=== PATIENT | female | born 1945 | race Caucasian/White ===

== ENCOUNTER 2020-09-05 11:41 | Outpatient (REF) | payer MEDICARE, SELFPAY ==
[2020-09-05 13:59] LABS: MANUAL DIFF FLAG NO
[2020-09-05 14:02] LABS: Basophils Absolute Auto 0.1 X10*3/uL (0.0-0.2); Basophils Percent Auto 1.1 % (0-2); Eosinophils Absolute Auto 0.1 X10*3/uL (0.0-0.4); Eosinophils Percent Auto 1.5 % (0-4); Hematocrit 39.4 % (37-47); Hemoglobin 12.7 g/dl (12.0-16.0); Imm Gran Abs Auto 0.01 X10*3/uL (0.00-0.03); Imm Gran Pct Auto 0.2 % (0.0-0.4); Lymphocytes Absolute Auto 1.8 X10*3/uL (1.2-4.9); Lymphocytes Percent Auto 32.7 % (20-40); Mean Corpuscular HGB Conc 32.2 g/dl (31.0-35.0); Mean Corpuscular Hemoglobin 30.2 pg (27.0-33.0); Mean Corpuscular Volume 93.8 fL (80-98); Mean Platelet Volume 11.3 fL (9.4-12.3); Monocytes Absolute Auto 0.4 X10*3/uL (0.1-1.2); Monocytes Percent Auto 7.5 % (2-11); Neutrophils Absolute Auto 3.1 X10*3/uL (2.0-8.3); Platelet Count 323 X10*3/uL (160-400); Red Cell Distribution Width 12.9 % (11.0-16.0); White Blood Count 5.5 X10*3/uL (4.8-10.8)
[2020-09-05 14:35] LABS: Alanine Aminotransferase 21 U/L (0-31); Albumin Level 4.2 g/dL (3.5-5.0); Alkaline Phosphatase 58 U/L (39-117); Anion Gap 14 (12-20); Aspartate Amino Transferase 19 U/L (5-31); Bilirubin Total 0.5 mg/dL (0.0-1.0); Blood Urea Nitrogen 17 mg/dL (9-16); Calcium 9.3 mg/dL (8.4-10.2); Carbon Dioxide 26 mmol/L (22-29); Chloride 106 mmol/L (96-108); Estimated Glomerular Filt Rate > 60; Glucose Random 94 mg/dL (60-115); Potassium 4.7 mmol/L (3.3-5.1); Sodium 141 mmol/L (135-145); Total Protein 6.7 g/dL (6.5-8.0)
== END 2020-09-05 11:42 | disposition home or self-care (01) ==
LOC: HO.HMGCLDS 11:41
PROVIDERS: PCP Internal Medicine; Visit Provider Internal Medicine
DX: M54.9 Dorsalgia, unspecified (principal); M17.0 Bilateral primary osteoarthritis of knee; K21.9 Gastro-esophageal reflux disease without esophagitis
CPT/HCPCS: 36415; 80053; 85025

== ENCOUNTER 2020-10-18 15:00 | Outpatient (RCR) | payer MEDICARE, SELFPAY ==
--- NOTE | 2020-09-11 16:14 | MHC.PT.EP ---
[facility] [place] Office [place] Office [place] Office [address] Jeferson Goodson [address] [phone] F: [phone] F: [phone] F: [phone] F: [phone] Physical Therapy Plan of Care Date of Evaluation: Date of Surgery: Diagnosis: back pain, B knee OA. Assessment: Pt is a 7/4 y/o female referred to PT for eval and treat of LBP and B knee OA presents with signs and sx consistent with B knee and lumbar dysfunction resulting in decreased tolerance and ability to perform ambulatory, and standing tasks for duration, performing fitness activities as well as negotiating stairs, performing squatting activities and heavy HH chores secondary to decreased hip, core and knee strength, gait abnormality, decreased posture, and pain. Pt is deemed an appropriate candidate to receive skilled PT in order to address her physical limitations to improve her functional ability. Frequency and Duration: The patient will be seen 2 x/ wk x 6 wks. Short Term Goals: initiate HEP. improve baseline pain with activity to < 4/10; initial: 6/10. Senior Living Goals: Pt will be able to walk 1 mile with at most a little bit of difficulty; int ital: quite a bit of difficulty. I with HEP. Pt will be able to negotiate 1 flight of stairs with managed Sx. Treatment Plan: Modalities to reduce pain, spasms and effusion. Manual therapy to restore motion and function. Therapeutic exercise to improve strength and flexibility. Neuromuscular re-education for posture and balance. Therapeutic activities to return to functional activities of daily living. Electronically signed by: Hardeep Sabillon PT. Please sign and return to therapist. Thank you for your referral.
--- NOTE | 2020-12-04 10:01 | MHC.PT.DC ---
[facility] [place] Office [place] Office [place] Office [address] Priscilla Goodson [address] [phone] F: [phone] F: [phone] F: [phone] F: [phone] Physical Therapy Discharge Report Diagnosis: back pain, B knee OA. Date of Surgery: Date of Evaluation: 09/11/20 Date of Discharge: 12/04/20 Treatments to Date: 10 Cancellations to Date: No Shows to Date: Discharge Status: Improved Function Independent with HEP Discharge Summary: Leni has been an active participant in her therapy in and out of the clinic and has met many of her therapeutic goals; though some knee pain persists she is improved of her function and greatly relieved of her back pain. She is I with her home program and is ready for ERENDIRA TESFAYE in agreement. Electronically signed by: Hardeep Sabillon PT. Please sign and return to therapist. Thank you for your referral.
== END 2020-12-04 10:02 | disposition home or self-care (01) ==
LOC: HO.PTCHIC 15:00
PROVIDERS: PCP Internal Medicine; Visit Provider Internal Medicine
DX: M54.5 Low back pain (principal); M17.9 Osteoarthritis of knee, unspecified
CPT/HCPCS: 97110; 97140; 97161; 97530

== ENCOUNTER 2020-12-12 11:07 | Outpatient (REF) | payer MEDICARE, SELFPAY ==
--- NOTE | ~2020-12-12 | MM_ITS ---
EXAMINATION: MM SCREENING DIGITAL BREAST TOMOSYNTHESIS, BILATERAL CLINICAL INFORMATION: Screening. Asymptomatic. The lifetime risk of breast cancer based on the Tyrer-Cuzick Model is 2%. COMPARISON: Mammography: 12/07/2019, 12/01/2018, 11/22/2017, 11/09/2016 TECHNIQUE: Digital breast tomosynthesis is performed in both the craniocaudal and mediolateral oblique views along with computer-aided detection (CAD). Synthesized 2D images are generated from the tomosynthesis. FINDINGS: There are scattered areas of fibroglandular density (ACR BI-RADS breast composition Category b). There are no significant masses, abnormal calcifications, or other abnormalities. Background fibroglandular and stromal densities are stable. The axilla and skin contours are unremarkable. MM/MM tomosynthesis screening BI IMPRESSION: No mammographic evidence of malignancy. ASSESSMENT: BI-RADS 1: Negative RECOMMENDATION: Routine annual mammography screening. This patient's information was entered into a reminder system with a target due date for their next mammogram.
== END 2020-12-12 11:08 | disposition home or self-care (01) ==
LOC: HO.MAMMO 11:07
PROVIDERS: PCP Internal Medicine; Visit Provider Internal Medicine
DX: Z12.31 Encounter for screening mammogram for malignant neoplasm of breast (principal)
CPT/HCPCS: 77063; 77067

== ENCOUNTER → 2021-01-09 13:21 | Outpatient (BNVA) | payer MEDICARE, SELFPAY | PROVIDERS: PCP Internal Medicine; Visit Provider Orthopaedic Surgery | DX: M17.12 Unilateral primary osteoarthritis, left knee (principal) | CPT/HCPCS: 99212 ==

== ENCOUNTER → 2021-01-20 11:55 | Outpatient (BNVA) | payer MEDICARE, SELFPAY | PROVIDERS: PCP Internal Medicine; Visit Provider Orthopaedic Surgery | DX: Z01.812 Encounter for preprocedural laboratory examination (principal); Z01.810 Encounter for preprocedural cardiovascular examination ==

== ENCOUNTER 2021-02-13 08:44 | Outpatient (REF) | payer MEDICARE, SELFPAY ==
--- NOTE | ~2021-02-13 | XR_ITS ---
EXAMINATION: XR KNEE, BILATERAL CLINICAL INFORMATION: Pain COMPARISON: Previous x-rays November 2019. TECHNIQUE: Standing AP view of both knees and lateral and sunrise view of the left knee. FINDINGS: Left: There is mild varus angulation at the knee joint. Bone alignment is otherwise normal. There is tricompartment arthritis with joint space narrowing and osteophyte formation, greatest at the medial femoral tibial and patellofemoral joints. There is a small joint effusion. Right: Standing AP view of the right knee demonstrates arthritis at the medial femoral tibial joint. XR/XR knee standing BI IMPRESSION: LEFT KNEE: Tricompartment arthritis, small joint effusion and mild varus angulation. RIGHT KNEE: Arthritis at the medial femoral tibial joint.
--- NOTE | ~2021-02-13 | XR_ITS ---
EXAMINATION: XR KNEE, BILATERAL CLINICAL INFORMATION: Pain COMPARISON: Previous x-rays November 2019. TECHNIQUE: Standing AP view of both knees and lateral and sunrise view of the left knee. FINDINGS: Left: There is mild varus angulation at the knee joint. Bone alignment is otherwise normal. There is tricompartment arthritis with joint space narrowing and osteophyte formation, greatest at the medial femoral tibial and patellofemoral joints. There is a small joint effusion. Right: Standing AP view of the right knee demonstrates arthritis at the medial femoral tibial joint. XR/XR knee LT 2V IMPRESSION: LEFT KNEE: Tricompartment arthritis, small joint effusion and mild varus angulation. RIGHT KNEE: Arthritis at the medial femoral tibial joint.
== END 2021-02-13 08:45 | disposition home or self-care (01) ==
LOC: HO.HOSX 08:44
PROVIDERS: Visit Provider Physician Assistant
DX: M17.12 Unilateral primary osteoarthritis, left knee (principal); M25.561 Pain in right knee
CPT/HCPCS: 73560; 73565; 99212

== ENCOUNTER 2021-02-18 06:11 | Inpatient (IN) | payer MEDICARE, SELFPAY ==
--- NOTE | 2021-01-21 07:55 | ECG_ITS ---
Test Reason : 201.810 Blood Pressure : / mmHG Vent. Rate : 067 BPM Atrial Rate : 067 BPM P-R Int : 142 ms QRS Dur : 076 ms QT Int : 392 ms P-R-T Axes : 035 -10 035 degrees QTc Int : 414 ms Normal sinus rhythm Normal ECG No previous ECGs available Referred By: Prosper Gilbert Electronically Signed By:ARMANDO RODNEY MD
[2021-01-21 08:17] LABS: MANUAL DIFF FLAG NO
[2021-01-21 08:29] LABS: Basophils Absolute Auto 0.1 X10*3/uL (0.0-0.2); Eosinophils Absolute Auto 0.1 X10*3/uL (0.0-0.4); Eosinophils Percent Auto 2.1 % (0-4); Hematocrit 38.8 % (37-47); Hemoglobin 12.7 g/dl (12.0-16.0); Imm Gran Abs Auto 0.01 X10*3/uL (0.00-0.03); Imm Gran Pct Auto 0.2 % (0.0-0.4); Lymphocytes Absolute Auto 1.4 X10*3/uL (1.2-4.9); Lymphocytes Percent Auto 26.6 % (20-40); Mean Corpuscular HGB Conc 32.7 g/dl (31.0-35.0); Mean Corpuscular Hemoglobin 30.5 pg (27.0-33.0); Mean Platelet Volume 10.1 fL (9.4-12.3); Monocytes Absolute Auto 0.5 X10*3/uL (0.1-1.2); Monocytes Percent Auto 10.3 % (2-11); Neutrophils Absolute Auto 3.1 X10*3/uL (2.0-8.3); Neutrophils Percent Auto 59.8 % (45-73); Platelet Count 318 X10*3/uL (160-400); Red Blood Count 4.17 X10*6/uL (4.20-5.50); White Blood Count 5.2 X10*3/uL (4.8-10.8)
[2021-01-21 09:01] LABS: Anion Gap 14 (12-20); Blood Urea Nitrogen 14 mg/dL (9-16); Calcium 9.8 mg/dL (8.4-10.2); Carbon Dioxide 26 mmol/L (22-29); Chloride 105 mmol/L (96-108); Estimated Glomerular Filt Rate > 60; Glucose Random 108 mg/dL (60-115); Potassium 4.5 mmol/L (3.3-5.1); Sodium 140 mmol/L (135-145)
--- NOTE | 2021-02-06 16:46 | HP_ITS ---
DATE OF SERVICE: 02/18/2021 HISTORY OF PRESENT ILLNESS: The patient is a 76-year-old female, who is seen today in the office for preop evaluation prior to left total knee replacement scheduled with Dr. Gilbert on February 18. The patient feels well except for the knee pain. PAST MEDICAL HISTORY: Significant for arthritis, appendectomy, tonsillectomy, varicose veins, gastroesophageal reflux disease, hay fever, diverticulosis, bunions. ALLERGIES: SHE IS LISTED ALLERGIC TO BIAXIN AND CIPROFLOXACIN. FAMILY HISTORY: Mother at 69 from pancreatic cancer. Father at 76 from pancreatic cancer. One brother has Parkinson's. SOCIAL HISTORY: She is and retired, has 2 children in good health. PRESENT MEDICATIONS: Prilosec 20 mg a day, calcium and vitamin D, p.r.n. ibuprofen which is being held for the surgery, multivitamin. She has been on allergy shots previously for hay fever. REVIEW OF SYSTEMS: Weight is up 8 pounds. No fevers, chills, or sweats. No headaches or dizziness. No chest pains or palpitations. No peripheral edema. No shortness of breath or wheezing. Some heartburn. No abdominal pain, diarrhea, or constipation. Some urinary urgency, occasional incontinence, nocturia. No confusion. No speech changes. Sleep and appetite are the same. She does have seasonal allergies. No skin rashes or breast changes. PHYSICAL EXAMINATION: GENERAL: She is awake and alert, in no distress. VITAL SIGNS: Temperature 98.3, pulse 78, respirations 12, blood pressure 124/78, 98% oxygen saturation on room air. Weight is 178, height is 5 feet 2 inches. HEENT: Pupils equal. TMs clear. Pharynx clear. NECK: Supple. No lymph nodes, bruits, or masses. HEART: Sounds S1 and S2. Regular rate and rhythm. LUNGS: Clear. ABDOMEN: Soft and nontender. Positive bowel sounds. No HSM. EXTREMITIES: No clubbing, cyanosis, or edema. 1 to 2+ pulses. NEUROLOGICAL: Nonfocal. Cranial nerves II through XII are intact. Hand grasps are equal. She does not smoke. LABORATORY DATA: Labs and EKG have been done previously in the hospital and are available on [facility], they are within normal limits. ASSESSMENT AND PLAN: She is medically stable for the proposed procedure. I will be available if there are any medical questions. She has had COVID and flu vaccine and is up to date. She has had a pneumonia vaccine 4 years ago, so it is up to date on that. Jamie Mendoza MD FC/LEO / [phone]
[2021-02-11 12:06] VITALS: BP 190/80; PULSE 74; RESP 20; O2SAT 97; BMI 32.0
--- NOTE | 2021-02-11 12:18 | HO.ANESPROP2 ---
Documented by User: Michelle Hawley NP 02/17/21 09:33 HPI - Anesthesia Eval Consult details Narrative: 76yo F for Left Knee Replacement Total PCP cleared BP up at PAT, recheck lower. Pt describes nerves/pain. BP WNL at PCP clearance. PMFSH Active Problems Active Problems: All Active Problems (Updated 02/11/21 @ 12:03 by Janet Alvarez RN) Arthritis of left knee (Acute) Past Medical History Medical History GERD (gastroesophageal reflux disease) Hayfever Lumbar disc disease Osteoarthritis Stress incontinence Family History Family history of problems with anesthesia: No Surgical History Surgical History History of cataract extraction Hx of appendectomy Hx of tonsillectomy History of Problems with Anesthesia: No Social History Social History (Updated 02/13/21 @ 11:38 by Leo Martinez) Are you a primary assisted living care manager to a significant other at home: No Do you presently have visiting nurse or other home services: No Patient Tobacco Use Status: Former Tobacco user Quit Date: Tobacco use type: Cigarette Second Hand Smoke Exposure: No Use of substances other than those prescribed or required for medical reasons: No Have you been hit, kicked, punched, or otherwise hurt by someone within the past year? If so, by whom?: No Are you DNR?: No Advance Directives: No Advance Directives Information Provided: Yes (given to patient) Advance Directives on File: No Recently lost weight without trying: No Eating poorly because of decreased appetite: No Nutrition Risks: No Nutritional Risk Patient : No Current occupational status: retired Current occupation: rt handed Narrative Narrative: No recent illness No CP/SOB with ADL (housework, groceries) Meds Allergies Allergy/AdvReac Type Severity Reaction Status Date / Time ciprofloxacin [Cipro] Allergy Intermediate Itching Verified 02/18/21 06:15 Biaxin Allergy Severe Dizziness Uncoded 02/18/21 06:15 Home Medications Medication Instructions Recorded Confirmed Last Taken Type ibuprofen 200 mg capsule 200 mg PO Q6H PRN 01/09/21 02/11/21 02/10/21 History omeprazole 20 mg capsule,delayed 20 mg PO DAILY 01/09/21 02/10/21 Unknown History release oxybutynin chloride 5 mg tablet 5 mg PO DAILY 02/11/21 02/11/21 Unknown History Exam Exam Date and Time: February 11, 2021 121 Height,Weight and Vital Signs: Height 5 ft 2.5 in Weight 80.739 kg Last Vital Signs Pulse 74 02/11/21 12:06 Resp 20 02/11/21 12:06 BP 190/80 H 02/11/21 12:06 Pulse Ox 97 02/11/21 12:06 BP recheck 159/81 Pertinent Lab Results Pertinent Lab Results: Lab Results 01/21/21 01/21/21 02/11/21 Range/Units 08:15 08:15 13:10 WBC 5.2 (4.8-10.8) X10*3/uL RBC 4.17 L (4.20-5.50) X10*6/uL Hgb 12.7 (12.0-16.0) g/dl Hct 38.8 (37-47) % MCV 93.0 (80-98) fL MCH 30.5 (27.0-33.0) pg MCHC 32.7 (31.0-35.0) g/dl RDW 13.0 (11.0-16.0) % Plt Count 318 (160-400) X10*3/uL MPV 10.1 (9.4-12.3) fL Immature Gran % (Auto) 0.2 (0.0-0.4) % Neut % (Auto) 59.8 (45-73) % Lymph % (Auto) 26.6 (20-40) % Vermilion % (Auto) 10.3 (2-11) % Eos % (Auto) 2.1 (0-4) % Baso % (Auto) 1.0 (0-2) % Lymph # (Auto) 1.4 (1.2-4.9) X10*3/uL [place] # (Auto) 0.5 (0.1-1.2) X10*3/uL Eos # (Auto) 0.1 (0.0-0.4) X10*3/uL Baso # (Auto) 0.1 (0.0-0.2) X10*3/uL Abs Immat Gran (auto) 0.01 (0.00-0.03) X10*3/uL Absolute Neuts (auto) 3.1 (2.0-8.3) X10*3/uL Absolute Nucleated RBC 0.000 (0.0-0.012) X10*3/uL Nucleated RBC % (auto) 0.0 (0.0-0.2) /100WBC Sodium 140 (135-145) mmol/L Potassium 4.5 (3.3-5.1) mmol/L Chloride 105 (96-108) mmol/L Carbon Dioxide 26 (22-29) mmol/L Anion Gap 14 (12-20) BUN 14 (9-16) mg/dL Creatinine 0.84 (0.5-1.4) mg/dL Estim Creat Clear Calc TNP Estimated GFR > 60 Random Glucose 108 (60-115) mg/dL Calcium 9.8 (8.4-10.2) mg/dL Nasal Screen MRSA (PCR) (Negative) Nasal S. aureus Screen (Negative) Nasal MRSA/S.aureus Interp Blood Type A Positive Antibody Screen NEGATIVE 02/11/21 Range/Units Unknown WBC (4.8-10.8) X10*3/uL RBC (4.20-5.50) X10*6/uL Hgb (12.0-16.0) g/dl Hct (37-47) % MCV (80-98) fL MCH (27.0-33.0) pg MCHC (31.0-35.0) g/dl RDW (11.0-16.0) % Plt Count (160-400) X10*3/uL MPV (9.4-12.3) fL Immature Gran % (Auto) (0.0-0.4) % Neut % (Auto) (45-73) % Lymph % (Auto) (20-40) % Vermilion % (Auto) (2-11) % Eos % (Auto) (0-4) % Baso % (Auto) (0-2) % Lymph # (Auto) (1.2-4.9) X10*3/uL Vermilion # (Auto) (0.1-1.2) X10*3/uL Eos # (Auto) (0.0-0.4) X10*3/uL Baso # (Auto) (0.0-0.2) X10*3/uL Abs Immat Gran (auto) (0.00-0.03) X10*3/uL Absolute Neuts (auto) (2.0-8.3) X10*3/uL Absolute Nucleated RBC (0.0-0.012) X10*3/uL Nucleated RBC % (auto) (0.0-0.2) /100WBC Sodium (135-145) mmol/L Potassium (3.3-5.1) mmol/L Chloride (96-108) mmol/L Carbon Dioxide (22-29) mmol/L Anion Gap (12-20) BUN (9-16) mg/dL Creatinine (0.5-1.4) mg/dL Estim Creat Clear Calc Estimated GFR Random Glucose (60-115) mg/dL Calcium (8.4-10.2) mg/dL Nasal Screen MRSA (PCR) NEGATIVE (Negative) Nasal S. aureus Screen POSITIVE A (Negative) Nasal MRSA/S.aureus Interp SEE NOTE Blood Type Antibody Screen Narrative Narrative: EKG 01/2021 Vent. Rate : 067 BPM ? ? Atrial Rate : 067 BPM ?? P-R Int : 142 ms? QRS Dur : 076 ms ? ? QT Int : 392 ms ? ? ? P-R-T Axes : 035 -10 035 degrees ?? QTc Int : 414 ms ? Normal sinus rhythm Normal ECG No previous ECGs available Airway Mallampati Class: II TM Dist: >3cm Neck ROM: Full Loose/Missing/Broken Teeth: No (Crowned molars) Heart: RRR Lungs: CTAB Assessment and Plan Assessment Anesthesia Assessment: Anesthesia Plan Discussed (Spinal and block with GA back up) and PAT Visit Final Anesthetic Review Family History of Problems with Anesthesia: No History of Problems with Anesthesia: No Documented by User: Soham Weber MD 02/18/21 10:35 [facility] Past Medical History Medical History GERD (gastroesophageal reflux disease) Hayfever Lumbar disc disease Osteoarthritis Stress incontinence Surgical History Surgical History History of cataract extraction Hx of appendectomy Hx of tonsillectomy Social History Social History (Updated 02/13/21 @ 11:38 by Leo Martinez) Are you a primary assisted living care manager to a significant other at home: No Do you presently have visiting nurse or other home services: No Patient Tobacco Use Status: Former Tobacco user Quit Date: Tobacco use type: Cigarette Second Hand Smoke Exposure: No Use of substances other than those prescribed or required for medical reasons: No Have you been hit, kicked, punched, or otherwise hurt by someone within the past year? If so, by whom?: No Are you DNR?: No Advance Directives: No Advance Directives Information Provided: Yes (given to patient) Advance Directives on File: No Recently lost weight without trying: No Eating poorly because of decreased appetite: No Nutrition Risks: No Nutritional Risk Patient : No Current occupational status: retired Current occupation: rt handed Meds Allergies Allergy/AdvReac Type Severity Reaction Status Date / Time ciprofloxacin [Cipro] Allergy Intermediate Itching Verified 02/18/21 06:15 Biaxin Allergy Severe Dizziness Uncoded 02/18/21 06:15 Home Medications Medication Instructions Recorded Confirmed Last Taken Type ibuprofen 200 mg capsule 200 mg PO Q6H PRN 01/09/21 02/11/21 02/10/21 History omeprazole 20 mg capsule,delayed 20 mg PO DAILY 01/09/21 02/10/21 Unknown History release oxybutynin chloride 5 mg tablet 5 mg PO DAILY 02/11/21 02/11/21 Unknown History Assessment and Plan Assessment Anesthesia Assessment: Chart Reviewed Final Anesthetic Review NPO: Yes ASA Class: II Final Preanesthetic Review: No Changes in Pt Med Stat, Meds/Allgs Chart Reviewed, Consent Obtained/Reviewed and Anes Risks/Benef Reviewed Patient Risk: Intermediate Procedure Risk: Intermediate Anesthetic Plan Anesthetic Plan: GA, Spinal, Regional Block and Agree w/ Assess. and Plan Disposition: Standard PACU
[2021-02-11 16:43] LABS: MRSA Nasal PCR NEGATIVE (Negative); SA Nasal PCR POSITIVE (Negative)
[2021-02-18] VITALS (13 sets, daily range): BP systolic 123–169; BP diastolic 59–81; PULSE 60–86; RESP 12–18; TEMP 36.4–37.1; O2SAT 97–100
--- NOTE | ~2021-02-18 | XR_ITS ---
EXAMINATION: XR KNEE, LEFT CLINICAL INFORMATION: Left knee replacement COMPARISON: Previous x-ray 02/13/2021 TECHNIQUE: Two views of the left knee. FINDINGS: There is a new 3 component left knee replacement in satisfactory position. No fracture or dislocation is seen. There are postoperative changes of the soft tissues. XR/XR knee LT 2V IMPRESSION: Satisfactory appearance of left knee replacement.
[2021-02-18 06:51] LABS: COVID-19 Test Negative (Negative); IDNOW Serial# 9DD0AD1C
[2021-02-18] MEDS: Lactated Ringers 1,000 ML 100 ML IVCONT (07:06)
[2021-02-18] MEDS: vancomycin HCL 1,500 MG in 0.9 % Sodium Chloride 500 ML 333.33 MG IV ×2 (07:16→18:56)
--- NOTE | 2021-02-18 07:53 | MHC.SHP ---
Pre-Procedural Eval Section A Date of Service: 02/18/21 The patient is an INPATIENT: No Changes since office visit: Yes Patient answered all questions; No Cold of Flu in the past 2 weeks, No New Medical Problems and No Changes in Medication The History & Physical has been completed within 30 days and I have reviewed it.: Yes Section B Chief Complaint: osteoarthritis left knee Allergies: Allergies Allergy/AdvReac Type Severity Reaction Status Date / Time ciprofloxacin [Cipro] Allergy Intermediate Itching Verified 02/18/21 06:15 Biaxin Allergy Severe Dizziness Uncoded 02/18/21 06:15 Plan I have reviewed the history and physical and performed a pertinent physical examination on my patient. No changes have occurred unless specified.
--- NOTE | 2021-02-18 09:31 | PM.OP ---
Brief Operative Note Date of Service: 02/18/21 Pre-op diagnosis: left knee OA Post-op diagnosis: same Procedure: Left TKA Implants: [place] triathalon crucuate reatianing press fit 06/06/10 Surgeon: Prosper Gilbert MD Anesthesia: GETA and regional Was an Sliding Joint Maker used for this Procedure?: Yes Sliding Joint Maker: Cuauhtemoc Dior Estimated blood loss (mL): 200 IV fluids (mL): 1,000 Pathology: other Condition: stable Disposition: PACU
--- NOTE | 2021-02-18 09:34 | W.PM.OPN ---
Operative Note Operative Note Date of Service: 02/18/21 Narrative: Pre-op diagnosis: left knee OA Post-op diagnosis: same Procedure: Left TKA Implants: [place] tristoneyalon cordell reatianing press fit 06/06/10 Surgeon: Prosper Gilbert MD Anesthesia: GETA and regional Was an General Warehouse Worker used for this Procedure?: Yes General Warehouse Worker: Cuauhtemoc Dior Estimated blood loss (mL): 200 IV fluids (mL): 1,000 Pathology: other Condition: stable Disposition: PACU Procedure in detail: The patient was brought to the operating room and prepped and draped in standard sterile fashion. A time-out was called to identify proper site proper procedure proper surgeon IV antibiotics were administered. 1 g of IV tranexamic acid was also administered. I began by making a midline incision to the retinaculum and performed a medial parapatellar arthrotomy. The patella was translated laterally and the knee was flexed up. There was tricompartmental eburnation involving the medial compartment entirely. I performed a small medial peel and resected the infrapatellar fat pad. Moniteau's line was then used to drill my intramedullary femoral guide and my distal femur cut was made in 5 degrees of valgus. I then measured a # _3__ femur and placed my cutting guide and made my anterior posterior and chamfer cuts protecting the soft tissues at all times. Once I was satisfied with my cut I turned my attention to the tibia. I removed the meniscus and , using an external cutting guide, in line with the tibial crest and the third ray, I made my distal tibial cut ( 3 deg slope) while protecting the PCL the posterior soft tissues at all times. An extension block was used to confirm appropriate amount of bony resection. I then sized a #_4__ tibia once I was satisfied that there was complete tibial coverage I placed my trial and with the trial femur in place took the knee through range of motion. I was satisfied with the extension and flexion as well as the stability at 0, 30 and 90 degrees. I then turned my attention to the patella where I removed 1 cm from the undersurface of the patella and then trialed a ___32a___ patellar button. Again the knee was taken through range of motion I was satisfied with the tracking. I then returned to the femur and drilled my femoral lug holes and prepared the tibia. Femoral bone plug was then placed and the knee was irrigated copiously. I then press fit the patella, tibia and femur in standard fashion. I trialed different inserts until I selected a #__11__ insert. The final insert was placed and a 3 minutes iodine soak with local TXA was performed. The knee was then closed with a running Quill suture, a 3 0 Vicryl and harpreet on the skin. Patient was then placed in sterile dressing and brought to recovery room in stable condition there were no known complications.
[2021-02-18] MEDS: oxyCODONE HCl ER 10 MG TAB.ER.12H PO ×2 (10:10→20:44)
[2021-02-18] MEDS: oxyCODONE HCl Immed Release 5 MG TABLET PO ×3 (10:10→18:50)
[2021-02-18] MEDS: Dextrose 5 % and 0.45 % NaCl 1,000 ML 80 ML IVCONT ×2 (11:16→23:58)
--- NOTE | 2021-02-18 11:38 | P.CONIM_ITS ---
History of Present Illness Data of Consult Service Date: 02/18/21 Requesting physician: Prosper Gilbert Primary Care Provider: Andry Mendoza MD [facility] Reason for consult: Medical Management This is an 76 yo F with a PMH as outlined below who is admitted after L TKA. Medical consult requested for post-operative med mgmt. Patient is seen and examined in her room. She reports no complaints at this time. Pain is tolerable. No cp, sob, cough, abd pain, n/v. Review of Systems Review of Systems: negative except what is mentioned in the [facility] Medical History GERD (gastroesophageal reflux disease) Hayfever Lumbar disc disease Osteoarthritis Stress incontinence Pertinent family history: Pancreatic Ca in mother and father. Surgical History History of cataract extraction Hx of appendectomy Hx of tonsillectomy Social History (Updated 02/13/21 @ 11:38 by Leo Martinez) Household Members: Spouse Household Members Other:: 3 Housing: House Are you a primary rn transitional care to a significant other at home: No Do you presently have visiting nurse or other home services: No Patient Tobacco Use Status: Former Tobacco user Quit Date: Tobacco use type: Cigarette Second Hand Smoke Exposure: No Use of substances other than those prescribed or required for medical reasons: No Have you been hit, kicked, punched, or otherwise hurt by someone within the past year? If so, by whom?: No Do you feel safe in your current relationship?: Yes Is there a partner from a previous relationship who is making you feel unsafe now?: No Are you made to feel afraid or neglected: No Are you DNR?: No Advance Directives: No Advance Directives Information Provided: Yes (given to patient) Advance Directives on File: No Do you have thoughts of harming others: None Do you have a plan to hurt others: No Plan Recently lost weight without trying: No Eating poorly because of decreased appetite: No Nutrition Risks: No Nutritional Risk Patient : No : No Poor oral hygiene: No Current occupational status: retired Current occupation: rt handed Meds Allergies Allergy/AdvReac Type Severity Reaction Status Date / Time ciprofloxacin [Cipro] Allergy Intermediate Itching Verified 02/18/21 06:15 Biaxin Allergy Severe Dizziness Uncoded 02/18/21 06:15 Active Medications: Current Medications Acetaminophen (Acetaminophen 325 Mg Tablet) 650 mg PO Q6H PRN PRN Reason: Pain, Mild (Pain Scale 1-3) Celecoxib (Celecoxib 200 Mg Capsule) 200 mg PO BID [facility] Docusate Sodium (Docusate Sodium 100 Mg Capsule) 100 mg PO BID [facility] Hydromorphone HCl (Hydromorphone Hcl 0.5 Mg/0.5 Ml Syringe) 0.25 mg IVPUSH Q4H PRN; Protocol PRN Reason: Pain, Severe (Pain Scale 7-10) Hydromorphone HCl (Hydromorphone Hcl 0.5 Mg/0.5 Ml Syringe) 0.5 mg IVPUSH Q5M PRN; Protocol PRN Reason: Pain, Severe (Pain Scale 7-10) Dextrose/Sodium Chloride (D51/2ns) 1,000 mls @ 80 mls/hr IVCONT .[id number] [facility] Last Admin: 02/18/21 11:16 Dose: 80 mls/hr Documented by: Vancomycin HCl 1,500 mg/ (Sodium Chloride) 500 mls @ 333.333 mls/hr IV POSTOP@1900 ONE Stop: 02/18/21 20:29 Ondansetron HCl (Ondansetron Hcl 4 Mg/2 Ml Vial) 4 mg IVPUSH Q8H PRN PRN Reason: Nausea and Vomiting Ondansetron HCl (Ondansetron Hcl 4 Mg/2 Ml Vial) 4 mg IVPUSH ONCE PRN PRN Reason: Nausea and Vomiting Oxycodone HCl (Oxycodone Hcl Immed Release 5 Mg Tablet) 5 mg PO Q4H PRN PRN Reason: Pain, Moderate (Pain Scale 4-6 Last Admin: 02/18/21 10:10 Dose: 5 mg Documented by: Oxycodone HCl (Oxycodone Hcl Er 10 Mg Tab.Er.12h) 10 mg PO BID [facility] Last Admin: 02/18/21 10:10 Dose: 10 mg Documented by: Oxycodone HCl (Oxycodone Hcl Immed Release 5 Mg Tablet) 5 mg PO ONCE PRN PRN Reason: Pain, Severe (Pain Scale 7-10) Pharmacy Consult (Consult Rx Vancomycin Dosing) 1 each MISCELLANE DAILY PRN PRN Reason: Consult order Sodium Chloride (0.9 % Sodium Chloride Flush 3 Ml Syringe) 3 ml IVFLUSH QSHIFT [facility] Home Medications Medication Instructions Recorded Confirmed Last Taken Type ibuprofen 200 mg capsule 200 mg PO Q6H PRN 01/09/21 02/11/21 02/10/21 History omeprazole 20 mg capsule,delayed 20 mg PO DAILY 01/09/21 02/10/21 Unknown Histor y release oxybutynin chloride 5 mg tablet 5 mg PO DAILY 02/11/21 02/11/21 Unknown History Physical Exam Vital Signs and Narrative: Vital Signs: Last Vital Signs Temp 98.4 F 02/18/21 11:14 Pulse 64 02/18/21 10:58 Resp 16 02/18/21 10:58 BP 156/72 H 02/18/21 10:58 Pulse Ox 100 02/18/21 10:58 Body Mass Index 32.0 Const: Other: General - no acute distress, appears comfortable Cardiovascular - regular rate and rhythm, S1-S2 Lungs - normal respiratory effort, clear to auscultation bilaterally, no wheezing Abdomen - soft, nontender, no rebound or guarding Extremities - no edema bilaterally Neuro - awake and alert, no focal deficits Results Labs CBC and Chem 7: 01/21/21 08:15 01/21/21 08:15 Labs: Laboratory Results - last 24 hr 02/18/21 06:18 COVID-19 ([facility]) Negative COVID-19 Clin Com See Note Imaging Radiologist's Impressions: Impressions Knee X-Ray 02/18/21 10:07 IMPRESSION: Satisfactory appearance of left knee replacement. Assessment and Plan (1) Arthritis of left knee: Status: Acute This is a 76 yo F admitted under the Ortho services s/p L TKA. Medical consulted for management of medical problems. Chronic medical problems include urinary incontinence, Gerd and arthritis. Orders for oxybutynin and PPI placed. Otherwise no current issues. Continue usual post-op monitoring. Will sign off at this time. Please reconsult or tigerconnect with questions. Thank you.
--- NOTE | 2021-02-18 13:41 | PHA.MEDREC ---
Pharmacy Consult ? Medication Reconciliation Pharmacy has reviewed the medication reconciliation completed by nurse. Medication list lines up with patient filled history. Layne Santos, BettieD
[2021-02-18] MEDS: Acetaminophen 325 MG TABLET 650 MG PO (18:50)
[2021-02-18] MEDS: Docusate Sodium 100 MG CAPSULE PO (20:45)
[2021-02-18] MEDS: Celecoxib 200 MG CAPSULE PO (20:45)
[2021-02-18] MEDS: HYDROmorphone HCl 0.5 MG/0.5 ML SYRINGE 0.25 MG IVPUSH (23:57)
[2021-02-18] MEDS: 0.9 % Sodium Chloride Flush 3 ML SYRINGE IVFLUSH (23:58)
[2021-02-19] VITALS (8 sets, daily range): BP systolic 113–157; BP diastolic 49–73; PULSE 52–85; RESP 17–18; TEMP 36.3–38.1; O2SAT 96–99
[2021-02-19] MEDS: HYDROmorphone HCl 0.5 MG/0.5 ML SYRINGE 0.25 MG IVPUSH (04:38)
[2021-02-19 06:05] LABS: MANUAL DIFF FLAG NO
[2021-02-19 06:10] LABS: Basophils Percent Auto 0.3 % (0-2); Eosinophils Percent Auto 0.1 % (0-4); Hemoglobin 10.2 g/dl (12.0-16.0); Imm Gran Abs Auto 0.03 X10*3/uL (0.00-0.03); Imm Gran Pct Auto 0.3 % (0.0-0.4); Lymphocytes Absolute Auto 1.3 X10*3/uL (1.2-4.9); Mean Corpuscular HGB Conc 32.9 g/dl (31.0-35.0); Mean Corpuscular Hemoglobin 30.4 pg (27.0-33.0); Mean Corpuscular Volume 92.5 fL (80.0-98.0); Mean Platelet Volume 10.4 fL (9.4-12.3); Monocytes Absolute Auto 1.2 X10*3/uL (0.1-1.2); Monocytes Percent Auto 11.9 % (2-11); Neutrophils Absolute Auto 7.4 x10*3/uL (2.0-8.3); Neutrophils Percent Auto 74.4 % (45-73); Platelet Count 245 X10*3/uL (160-400); Red Blood Count 3.35 X10*6/uL (4.20-5.50); White Blood Count 9.9 X10*3/uL (4.8-10.8)
[2021-02-19] MEDS: Omeprazole 20 MG CAPSULE.DR PO (06:33)
[2021-02-19 06:36] LABS: Anion Gap 9 (12-20); Blood Urea Nitrogen 15 mg/dL (9-16); Calcium 7.9 mg/dL (8.4-10.2); Carbon Dioxide 25 mmol/L (22-29); Chloride 105 mmol/L (96-108); Creatinine Clr Calc Pharmacy 66.4; Estimated Glomerular Filt Rate > 60; Glucose Fasting 152 mg/dL (60-99); Potassium 3.9 mmol/L (3.3-5.1); Sodium 135 mmol/L (135-145)
--- NOTE | 2021-02-19 07:43 | P.PNOP_ITS ---
Subjective Subjective Date of Service: 02/19/21 Interval history: POD1 s/p LTKA with Dr. Gilbert. Patient is resting comfortably in bed. No overnight events. Pain is well managed. Physical Exam Vital Signs: Vital Signs: Last Vital Signs Temp 100.5 F H 02/19/21 07:32 Pulse 75 02/19/21 07:32 Resp 18 02/19/21 07:32 BP 121/52 L 02/19/21 07:32 Pulse Ox 96 02/19/21 07:32 Body Mass Index 32.0 Const: General: cooperative, healthy appearing and no acute distress Resp: Effort & Inspection: normal respiratory effort and able to speak in complete sentences Cardio: Rate: regular rate Peripheral pulses: Peripheral pulses 2+ throughout GI: Palpation (GI): Soft to palpation Skin: Lesions: no lesions Rashes: no rashes Extrem: Other: Left knee dressing is clean. dry, and intact. NVI Procedures Date of Service Date of Service: 02/19/21 Progress Note: A&P Assessment and plan (1) Status post total knee replacement, left: Status: Acute Assessment and Plan: Continue pain mgmnt Begin ASA for dvt ppx begin PT for LTKA Dispo planning-Pending PT eval, pain mgmnt Fall Risk Details Current Medications: Current Medications Acetaminophen (Acetaminophen 325 Mg Tablet) 650 mg PO Q6H PRN PRN Reason: Pain, Mild (Pain Scale 1-3) Last Admin: 02/18/21 18:50 Dose: 650 mg Documented by: Aspirin (Aspirin 325 Mg Tablet) 325 mg PO BID [facility] Celecoxib (Celecoxib 200 Mg Capsule) 200 mg PO BID [facility] Last Admin: 02/18/21 20:45 Dose: 200 mg Documented by: Docusate Sodium (Docusate Sodium 100 Mg Capsule) 100 mg PO BID [facility] Last Admin: 02/18/21 20:45 Dose: 100 mg Documented by: Hydromorphone HCl (Hydromorphone Hcl 0.5 Mg/0.5 Ml Syringe) 0.25 mg IVPUSH Q4H PRN; Protocol PRN Reason: Pain, Severe (Pain Scale 7-10) Last Admin: 02/19/21 04:38 Dose: 0.25 mg Documented by: Hydromorphone HCl (Hydromorphone Hcl 0.5 Mg/0.5 Ml Syringe) 0.5 mg IVPUSH Q5M PRN; Protocol PRN Reason: Pain, Severe (Pain Scale 7-10) Dextrose/Sodium Chloride (D51/2ns) 1,000 mls @ 80 mls/hr IVCONT .[id number] [facility] Last Admin: 02/18/21 23:58 Dose: 80 mls/hr Documented by: Omeprazole (Omeprazole 20 Mg Capsule.Dr) 20 mg PO DAILY@0630 [facility] Last Admin: 02/19/21 06:33 Dose: 20 mg Documented by: Ondansetron HCl (Ondansetron Hcl 4 Mg/2 Ml Vial) 4 mg IVPUSH Q8H PRN PRN Reason: Nausea and Vomiting Ondansetron HCl (Ondansetron Hcl 4 Mg/2 Ml Vial) 4 mg IVPUSH ONCE PRN PRN Reason: Nausea and Vomiting Oxybutynin Chloride (Oxybutynin Chloride Er 5 Mg Tab.Er.24) 5 mg PO DAILY [facility] Oxycodone HCl (Oxycodone Hcl Immed Release 5 Mg Tablet) 5 mg PO Q4H PRN PRN Reason: Pain, Moderate (Pain Scale 4-6 Last Admin: 02/18/21 18:50 Dose: 5 mg Documented by: Oxycodone HCl (Oxycodone Hcl Er 10 Mg Tab.Er.12h) 10 mg PO BID [facility] Last Admin: 02/18/21 20:44 Dose: 10 mg Documented by: Oxycodone HCl (Oxycodone Hcl Immed Release 5 Mg Tablet) 5 mg PO ONCE PRN PRN Reason: Pain, Severe (Pain Scale 7-10) Pharmacy Consult (Consult Rx Vancomycin Dosing) 1 each MISCELLANE DAILY PRN PRN Reason: Consult order Pharmacy Consult (Consult Rx Perform Med Rec) 1 each MISCELLANE ONCE PRN PRN Reason: Consult order Sodium Chloride (0.9 % Sodium Chloride Flush 3 Ml Syringe) 3 ml IVFLUSH QSHIFT [facility] Last Admin: 02/18/21 23:58 Dose: 3 ml Documented by: Time Spent With Patient Time: Total time spent is greater than 50% in coordination of care (as documented) at patient's floor/unit and/or counseling patient: Time with patient: less than 15 minutes Quality Stroke Does the patient have a stroke diagnosis?: No VTE Prior VTE?: No VTE Risk Level:: Surgical - very high VTE Device Contraindication: N/A - Device Ordered VTE Drug Contraindication: N/A - Med Ordered
[2021-02-19] MEDS: Docusate Sodium 100 MG CAPSULE PO ×2 (07:54→20:25)
[2021-02-19] MEDS: oxyCODONE HCl Immed Release 5 MG TABLET PO ×3 (07:55→15:58)
[2021-02-19] MEDS: Celecoxib 200 MG CAPSULE PO ×2 (07:57→20:24)
[2021-02-19] MEDS: Aspirin 325 MG TABLET PO ×2 (08:40→20:24)
[2021-02-19] MEDS: oxyCODONE HCl ER 10 MG TAB.ER.12H PO ×2 (08:40→20:26)
[2021-02-19] MEDS: Dextrose 5 % and 0.45 % NaCl 1,000 ML 80 ML IVCONT ×2 (10:22→22:06)
[2021-02-19] MEDS: Acetaminophen 325 MG TABLET 650 MG PO (13:05)
--- NOTE | 2021-02-19 14:04 | MHC.CM.PN ---
PATIENT LIVES WITH SPOUSE AND FAMILY. SHE HAS A WALKER AND TOILET RISER IN THE HOME. SHE CHOOSES [facility] REFERRAL FOR HOME PHYSICAL THERAPY NEEDS. FAMILY TO TRANSPORT; POTENTIALLY TOMORROW. PATIENT HAS A HCP FORM AT HOME THAT SHE HAS NOT YET COMPLETED. WHEN ASKED IF SHE WOULD LIKE ASSISTANCE WITH COMPLETION HERE, SHE DENIES SHE STATES THAT SHE IS NOT SURE WHO SHE WANTS TO BE HER AGENT(S). CASE MANAGEMENT FOLLOWING FOR DC PLANS. IMM 02/19 IN CHART
--- NOTE | 2021-02-19 15:11 | HO.POSTANES ---
Post Anesthesia Evaluation Post Anesthesia Evaluation Vital Signs: Vital Signs Temp Pulse Resp BP Pulse Ox 02/19/21 13:53 85 149/73 H 99 02/19/21 12:00 98.2 F 85 18 149/73 H 99 02/19/21 08:15 75 121/52 L 96 02/19/21 07:32 100.5 F H 75 18 121/52 L 96 02/19/21 06:29 18 02/19/21 04:00 98.6 F 77 17 113/49 L 96 Anesthesia: Nerve Block and General Mental Status: Awake Pain Control: Satisfactory Nausea/Vomiting: None Hydration: Adequate Anesthesia-Related Issues: No Anes. Related Issues
[2021-02-20] VITALS: BP 129/64; PULSE 81; RESP 17; TEMP 36.9; O2SAT 96
[2021-02-20 04:00] VITALS: BP 144/64; PULSE 80; RESP 18; TEMP 36.4; O2SAT 100
[2021-02-20] MEDS: Omeprazole 20 MG CAPSULE.DR PO (05:38)
[2021-02-20] MEDS: oxyCODONE HCl Immed Release 5 MG TABLET PO (05:38)
[2021-02-20 06:05] LABS: MANUAL DIFF FLAG NO
[2021-02-20 06:06] LABS: Basophils Percent Auto 0.5 % (0-2); Eosinophils Absolute Auto 0.1 X10*3/uL (0.0-0.4); Eosinophils Percent Auto 0.7 % (0-4); Hematocrit 32.3 % (37.0-47.0); Hemoglobin 10.3 g/dl (12.0-16.0); Imm Gran Abs Auto 0.02 X10*3/uL (0.00-0.03); Imm Gran Pct Auto 0.3 % (0.0-0.4); Lymphocytes Absolute Auto 1.4 X10*3/uL (1.2-4.9); Lymphocytes Percent Auto 18.8 % (20-40); Mean Corpuscular HGB Conc 31.9 g/dl (31.0-35.0); Mean Corpuscular Hemoglobin 29.9 pg (27.0-33.0); Mean Corpuscular Volume 93.6 fL (80.0-98.0); Mean Platelet Volume 10.2 fL (9.4-12.3); Monocytes Absolute Auto 0.9 X10*3/uL (0.1-1.2); Monocytes Percent Auto 11.4 % (2-11); Neutrophils Absolute Auto 5.1 x10*3/uL (2.0-8.3); Neutrophils Percent Auto 68.3 % (45-73); Platelet Count 245 X10*3/uL (160-400); Red Blood Count 3.45 X10*6/uL (4.20-5.50); Red Cell Distribution Width 13.3 % (11.0-16.0); White Blood Count 7.5 X10*3/uL (4.8-10.8)
[2021-02-20 06:20] LABS: Anion Gap 11 (12-20); Blood Urea Nitrogen 9 mg/dL (9-16); Carbon Dioxide 26 mmol/L (22-29); Chloride 107 mmol/L (96-108); Creatinine Clr Calc Pharmacy 70.3; Estimated Glomerular Filt Rate > 60; Glucose Fasting 124 mg/dL (60-99); Potassium 3.5 mmol/L (3.3-5.1); Sodium 140 mmol/L (135-145)
[2021-02-20 07:39] VITALS: BP 150/67; PULSE 80; RESP 18; TEMP 36.7; O2SAT 97
[2021-02-20 08:37] VITALS: BP 150/67; PULSE 80; O2SAT 97
--- NOTE | 2021-02-20 09:01 | P.DS_ITS ---
DS: Providers Provider Date of Service: 02/20/21 Date of admission: 02/18/21 06:11 Primary care physician: Andry Mendoza MD Consults: 02/18/21 09:42 Consult to Hospitalist Routine Consulting Provider: Hospitalist Reason For Exam: post op medical management DS: Diagnosis Discharge Diagnosis (1) Status post total knee replacement, left: Status: Acute DS: Summary Hospital Course Hospital Course: The patient underwent a successful left total knee arthroplasty, they were transferred to PACU and then to the floor to recover. During their stay, their vitals were stable, afebrile at 98.1. Labs were unremarkable, H/H 10.3/32.3. POD 1 they were started on Aspirin 325mg po bid for DVT ppx, they also received Physical Therapy services twice a day. Prior to discharge, their dressing was changed, incision clean dry and intact, new Aquacel dressing applied and the plan was to be discharged home with [facility] services. Time Spent with Patient Time attestation: Total time spent providing and/or coordinating discharge services: Discharge coordination time: Less than 30 minutes Quality: Stroke Does the patient have a stroke diagnosis?: No Physical Exam Vital Signs: Vital Signs: Last Vital Signs Temp 98.1 F 02/20/21 07:39 Pulse 80 02/20/21 08:37 Resp 18 02/20/21 07:39 BP 150/67 H 02/20/21 08:37 Pulse Ox 97 02/20/21 08:37 Body Mass Index 32.0 Const: General: cooperative, healthy appearing and no acute distress Resp: Effort & Inspection: normal respiratory effort and able to speak in co mplete sentences Cardio: Rate: regular rate Peripheral pulses: Peripheral pulses 2+ throughout GI: Palpation (GI): Soft to palpation Skin: Lesions: no lesions Rashes: no rashes Extrem: Other: left knee no redness or drainage. Mitzy intact. New Aquacel dressing applied. NVI DS: Data Data Completed and Pending Pending studies at discharge: Pending at discharge 02/18/21 09:14 Surgical [PTH] Routine Labs on day of discharge: Laboratory Results - last 24 hr 02/20/21 02/20/21 05:49 05:49 WBC 7.5 RBC 3.45 L Hgb 10.3 L Hct 32.3 L MCV 93.6 MCH 29.9 MCHC 31.9 RDW 13.3 Plt Count 245 MPV 10.2 Immature Gran % (Auto) 0.3 Neut % (Auto) 68.3 Lymph % (Auto) 18.8 L Harrison % (Auto) 11.4 H Eos % (Auto) 0.7 Baso % (Auto) 0.5 Lymph # (Auto) 1.4 Harrison # (Auto) 0.9 Eos # (Auto) 0.1 Baso # (Auto) 0.0 Abs Immat Gran (auto) 0.02 Absolute Neuts (auto) 5.1 Absolute Nucleated RBC 0.000 Nucleated RBC % (auto) 0.0 Sodium 140 Potassium 3.5 Chloride 107 Carbon Dioxide 26 Anion Gap 11 L BUN 9 Creatinine 0.68 Estim Creat Clear Calc 70.3 Estimated GFR > 60 Fasting Glucose 124 H Calcium 8.0 L Discharge Plan Discharge Patient Disposition: Home Health Service Discharge Diagnosis: s/p LT TKA Referrals: Cuauhtemoc Dior PA-C [Physician Certified Prosthetist] - 2 Weeks (03/06/21 1:00 [facility] Surgeons Cuauhtemoc Dior PA-C) Discharge Medications: New acetaminophen 325 mg Tablet 650 mg PO Q6H PRN (Reason: Pain, Mild (Pain Scale 1-3)) 30 Days Qty: 240 RF: 0 aspirin 325 mg Tablet 325 mg PO BID 30 Days Qty: 60 RF: 0 celecoxib 200 mg Capsule 200 mg PO BID 30 Days Qty: 60 RF: 0 docusate sodium 100 mg Capsule 100 mg PO BID 30 Days Qty: 60 RF: 0 oxycodone 5 mg Tablet 5 mg PO Q4H PRN (Reason: Pain, Moderate (Pain Scale 4-6) 7 Days Qty: 42 RF: 0 Continued oxybutynin chloride 5 mg Tablet 5 mg PO DAILY RF: 0 Discontinued ibuprofen 200 mg capsule 200 mg PO Q6H PRN (Reason: Pain) RF: 0 Discharge Orders: Discharge Order (Routine); Ordered 02/20/21 Ordered By: Aimee Jackson Diet: regular diet Activity on Discharge: Use cane or walker Stand Alone Forms: Patient Portal Discharge page Care Plan Goals: Restore function of joint Health Concerns: none Plan of Treatment: Physical Therapy Pain management DVT prophylaxis Assessment: * Physical Therapy for Total knee arthroplasty: gait training, ROM 0-12, quad strength * Limit stair climbing * No showering, no tub bath-keep dressing clean, dry and intact * No driving x6 weeks * Continue Aspirin twice a day x 4 weeks * Follow up with [facility] Orthopedics in 2 weeks
[2021-02-20] MEDS: Aspirin 325 MG TABLET PO (09:06)
[2021-02-20] MEDS: Docusate Sodium 100 MG CAPSULE PO (09:07)
[2021-02-20] MEDS: Celecoxib 200 MG CAPSULE PO (09:07)
[2021-02-20] MEDS: oxyCODONE HCl ER 10 MG TAB.ER.12H PO (09:07)
[2021-02-20] MEDS: 0.9 % Sodium Chloride Flush 3 ML SYRINGE IVFLUSH (09:08)
--- NOTE | 2021-02-20 09:15 | MHC.CM.PN ---
PATIENT IS DISCHARGED HOME TODAY WITH WITH [facility] FOR HOME PHYSICAL THERAPY. RN AWARE OF PLAN. FAMILY TO TRANSPORT
--- NOTE | 2021-02-20 09:20 | P.F2F_ITS ---
Service Date Service Date: 02/20/21 Reasons for Services Reason for physical therapy: home safety and mobility, therapeutic exercises, restore joint function, gait/transfer training, assess need for DME and ADL training Homebound: Leaving the home is medically contraindicated at this time without the asist of a device and/or another person due th the listed conditions above and below. Homebound supporting statement: Pt. is considered homebound due to recent surgery. Unable to drive, poor balance, poor gait mechanics. Certification: Based on the above findings, I certify that this patient is confined to the home and needs intermittent penitentiary care, physical therapy and/or speech therapy, or continues to need occupational therapy. The patient is under my care, and I have initiated the establishment of the plan of care. The patient will be followed by a physician who will periodically review the plan of care.
== END 2021-02-20 12:42 | disposition home health service (06) | DRG 470 ==
LOC: HO.SSSA 06:57 → HO.S3 09:56
PROVIDERS: Physician Assistant; Admitting Provider Orthopaedic Surgery; PCP Internal Medicine; Visit Provider Orthopaedic Surgery
PROC: 0SRD0JA Replacement of Left Knee Joint with Synthetic Substitute, Uncemented, Open Approach (ICD-10-PCS; CPT 27447; principal; 2021-02-18 07:30)
DX: M17.12 Unilateral primary osteoarthritis, left knee (principal); K21.9 Gastro-esophageal reflux disease without esophagitis; N39.3 Stress incontinence (female) (male); Z20.822 Contact with and (suspected) exposure to COVID-19; Z87.891 Personal history of nicotine dependence; Z79.899 Other long term (current) drug therapy
CPT/HCPCS: 27447; 36415; 73560; 80048; 85025; 86850; 86900; 86901; 87635; 87640; 87641; 88305; 88311; 93005; 97110; 97116; 97162; C1776; J0330; J1100; J1170; J2250; J2405; J3010; J3370

== ENCOUNTER → 2021-03-06 12:55 | Outpatient (BNVA) | payer MEDICARE, SELFPAY | PROVIDERS: PCP Internal Medicine; Visit Provider Physician Assistant | DX: Z47.1 Aftercare following joint replacement surgery (principal); Z96.652 Presence of left artificial knee joint | CPT/HCPCS: 99212 ==

== ENCOUNTER → 2021-04-02 13:48 | Outpatient (BNVA) | payer MEDICARE, SELFPAY | PROVIDERS: PCP Internal Medicine; Visit Provider Physician Assistant | DX: Z47.1 Aftercare following joint replacement surgery (principal); Z96.652 Presence of left artificial knee joint | CPT/HCPCS: 99212 ==

== ENCOUNTER 2021-05-08 15:00 | Outpatient (RCR) | payer MEDICARE, SELFPAY ==
--- NOTE | 2021-03-17 17:04 | MHC.PT.EP ---
[facility] [place] Office [place] Office [place] Office [address] [phone] F: [phone] F: [phone] F: [phone] F: [phone] Physical Therapy Plan of Care Date of Evaluation: Date of Surgery: 02/18/21 Diagnosis: L TKA DOS 02/18/21 Assessment: Pt is a 76 y/o female referred to PT s/p L TKA with DOS 02/18 resulting in decreased tolerance and ability for walking long distances, standing for long duration, squatting activities, heavy HH chores, negotiating stairs and curbs as well as, entering and exiting vehicles secondary to decreased L knee ROM and strength, decreased B hip strength, increased L LE tissue tension, gait abnormality, surgical healing process, and pain. Pt is deemed an appropriate candidate to receive skilled PT in order to address her physical limitations to improve her functional ability. Frequency and Duration: The patient will be seen 2 x / wk x 8 wk s. Short Term Goals: In 3 weeks improve L knee extension to 0; initial 8 degrees. In 3 weeks improve L knee flexion to > 124 degrees; initial 108. initiate HEP with evidence of compliance. Licensed Electrician Goals: Reciprocal stair negotiation achieved w/o compensation. Symmetrical gait achieved. L knee extension MMT > 4+/5; initial 4-/5. I with HEP. Pt will be able to walk 1 mile with at most a little bit of difficulty (LEFI). Treatment Plan: Modalities to reduce pain, spasms and effusion. Manual therapy to restore motion and function. Therapeutic exercise to improve strength and flexibility. Neuromuscular re-education for posture and balance. Therapeutic activities to return to functional activities of daily living. Electronically signed by: Hardeep Sabillon PT. Please sign and return to therapist. Thank you for your referral.
--- NOTE | 2021-12-09 10:15 | MHC.PT.DC ---
[facility] [place] Office [place] Office [place] Office [address] Jeferson Goodson [address] [phone] F: [phone] F: [phone] F: [phone] F: [phone] Physical Therapy Discharge Report Diagnosis: L TKA DOS 02/18/21 Date of Surgery: 02/18/21 Date of Evaluation: 03/17/21 Date of Discharge: 06/03/21 Treatments to Date: 10 Cancellations to Date: No Shows to Date: Discharge Status: Improved Function Independent with HEP Patient Elected to Stop Discharge Summary: Chart was left open and Pt opted to continue at home: Last note: 05/08/21 Pt requests DC today and has f/u with ortho [facility]; 3-120 achieved for ROM. she is encouraged to continue her HEP and focus on ROM and strength; Chart will be left open x 2 weeks in case Pt is recommended to continue by . Electronically signed by: Hardeep Sabillon PT. Please sign and return to therapist. Thank you for your referral.
== END 2021-12-09 10:16 | disposition home or self-care (01) ==
LOC: HO.PTCHIC 15:00
PROVIDERS: PCP Internal Medicine; Visit Provider Orthopaedic Surgery
DX: Z96.652 Presence of left artificial knee joint (principal)
CPT/HCPCS: 97110; 97140; 97150; 97161; 97530

== ENCOUNTER 2021-05-15 12:10 | Outpatient (REF) | payer MEDICARE, SELFPAY ==
--- NOTE | ~2021-05-15 | XR_ITS ---
EXAMINATION: BILATERAL KNEE AP STANDING AND LEFT KNEE. CLINICAL INFORMATION: Pain. COMPARISON: None TECHNIQUE: AP bilateral knee. Left knee 2 views. FINDINGS: AP bilateral knee: There is a total left knee arthroplasty with prosthetic components in satisfactory alignment. There is severe loss of medial compartment joint space with moderate periapical spurring medial and minimal lateral compartment spurring. Left knee: There is a total knee arthroplasty with prosthetic components in satisfactory alignment. No visible loose bodies are suprapatellar joint effusion seen. There is no prosthetic loosening. There is infrapatellar and paravertebral soft tissue swelling. XR/XR knee LT 2V IMPRESSION: Total left knee prosthesis with prosthetic components in alignment. No loosening seen. There is mild infrapatellar and parapatellar soft tissue swelling.
--- NOTE | ~2021-05-15 | XR_ITS ---
EXAMINATION: BILATERAL KNEE AP STANDING AND LEFT KNEE. CLINICAL INFORMATION: Pain. COMPARISON: None TECHNIQUE: AP bilateral knee. Left knee 2 views. FINDINGS: AP bilateral knee: There is a total left knee arthroplasty with prosthetic components in satisfactory alignment. There is severe loss of medial compartment joint space with moderate periapical spurring medial and minimal lateral compartment spurring. Left knee: There is a total knee arthroplasty with prosthetic components in satisfactory alignment. No visible loose bodies are suprapatellar joint effusion seen. There is no prosthetic loosening. There is infrapatellar and paravertebral soft tissue swelling. XR/XR knee standing BI IMPRESSION: Total left knee prosthesis with prosthetic components in alignment. No loosening seen. There is mild infrapatellar and parapatellar soft tissue swelling.
== END 2021-05-15 12:11 | disposition home or self-care (01) ==
LOC: HO.HOSX 12:10
PROVIDERS: Visit Provider Orthopaedic Surgery
DX: M25.562 Pain in left knee (principal); M25.561 Pain in right knee; Z47.1 Aftercare following joint replacement surgery; Z87.891 Personal history of nicotine dependence; Z96.652 Presence of left artificial knee joint
CPT/HCPCS: 73560; 73565; 99212

== ENCOUNTER 2021-10-07 12:12 | Outpatient (REF) | payer MEDICARE, SELFPAY ==
[2021-10-07 14:01] LABS: MANUAL DIFF FLAG NO
[2021-10-07 14:23] LABS: Basophils Absolute Auto 0.1 X10*3/uL (0.0-0.2); Basophils Percent Auto 0.9 % (0-2); Eosinophils Absolute Auto 0.1 X10*3/uL (0.0-0.4); Eosinophils Percent Auto 1.9 % (0-4); Hematocrit 38.2 % (37.0-47.0); Hemoglobin 11.9 g/dl (12.0-16.0); Imm Gran Abs Auto 0.02 X10*3/uL (0.00-0.03); Imm Gran Pct Auto 0.3 % (0.0-0.4); Lymphocytes Absolute Auto 1.7 X10*3/uL (1.2-4.9); Lymphocytes Percent Auto 29.3 % (20-40); Mean Corpuscular HGB Conc 31.2 g/dl (31.0-35.0); Mean Corpuscular Hemoglobin 29.4 pg (27.0-33.0); Mean Corpuscular Volume 94.3 fL (80.0-98.0); Mean Platelet Volume 11.1 fL (9.4-12.3); Monocytes Absolute Auto 0.5 X10*3/uL (0.1-1.2); Monocytes Percent Auto 8.5 % (2-11); Neutrophils Absolute Auto 3.4 x10*3/uL (2.0-8.3); Neutrophils Percent Auto 59.1 % (45-73); Platelet Count 286 X10*3/uL (160-400); Red Blood Count 4.05 X10*6/uL (4.20-5.50); White Blood Count 5.7 X10*3/uL (4.8-10.8)
[2021-10-07 14:30] LABS: Alanine Aminotransferase 34 U/L (0-31); Albumin Level 4.1 g/dL (3.5-5.0); Alkaline Phosphatase 69 U/L (39-117); Anion Gap 12 (12-20); Aspartate Amino Transferase 26 U/L (5-31); Bilirubin Total 0.4 mg/dL (0.0-1.0); Blood Urea Nitrogen 15 mg/dL (9-16); Calcium 8.9 mg/dL (8.4-10.2); Carbon Dioxide 26 mmol/L (22-29); Chloride 108 mmol/L (96-108); Estimated Glomerular Filt Rate > 60; Glucose Random 96 mg/dL (60-115); Iron 89 mcg/dL (30-160); Percent Iron Saturation 28 % (15-50); Potassium 4.5 mmol/L (3.3-5.1); Sodium 141 mmol/L (135-145); Total Iron Binding Capacity 321 mcg/dL (228-428); Total Protein 6.6 g/dL (6.5-8.0); Unsaturated Iron Binding 232 ug/dL
== END 2021-10-07 12:13 | disposition home or self-care (01) ==
LOC: HO.HMGCLDS 12:12
PROVIDERS: PCP Internal Medicine; Visit Provider Internal Medicine
DX: D64.9 Anemia, unspecified (principal); M54.9 Dorsalgia, unspecified; N32.81 Overactive bladder; K21.9 Gastro-esophageal reflux disease without esophagitis
CPT/HCPCS: 36415; 80053; 83540; 85025

== ENCOUNTER 2021-11-14 14:00 | Outpatient (RCR) | payer MEDICARE, SELFPAY ==
--- NOTE | 2021-10-28 19:01 | MHC.PT.EP ---
[facility] [place] [facility] [place] Office [place] Office [address] [phone] F: [phone] F: [phone] F: [phone] F: [phone] Physical Therapy Plan of Care Date of Evaluation: Date of Surgery: Diagnosis: L SIJ dysfunction Assessment: Pt is a 76 y/o female referred to PT for eval and treat of L sided SIJ dysfunction resulting in decreased tolerance and ability to perform ambulatory and standing tasks for duration as well as lifting objects of weight, and trunk flexion activities secondary to decreased hip and core strength, decreased trunk ROM as well as decreased posture, increased lumbar tissue tension, pelvic asymmetry and pain. Pt is deemed an appropriate candidate to receive skilled PT in order to address her physical limitations to improve her functional ability. Frequency and Duration: The patient will be seen 2 x/ wk x 5 wks. Short Term Goals: Initiate HEP Improve baseline pain with activity to < 0-5/10; initial: 2-8/10. Halfway Goals: I with HEP. Pt will be able to tolerate standing > 1 hour; initial < 10 min. Pt will report pain prevents her from walking long distances; initial: pain prevents from walking even short distances. Treatment Plan: Modalities to reduce pain, spasms and effusion. Manual therapy to restore motion and function. Therapeutic exercise to improve strength and flexibility. Neuromuscular re-education for posture and balance. Therapeutic activities to return to functional activities of daily living. Electronically signed by: Hardeep Sabillon PT. Please sign and return to therapist. Thank you for your referral.
--- NOTE | 2021-11-26 15:43 | MHC.PT.DC ---
[facility] [place] Office [place] Office [place] Office [address] Jeferson Goodson 140 [facility] [phone] F: [phone] F: [phone] F: [phone] F: [phone] Physical Therapy Discharge Report Diagnosis: L SIJ dysfunction Date of Surgery: Date of Evaluation: 10/28/21 Date of Discharge: 11/26/21 Treatments to Date: 6 Cancellations to Date: No Shows to Date: Discharge Status: Independent with HEP Patient Elected to Stop Discharge Summary: Pt reports too much personal issues to participate in therapy and self DC'd Electronically signed by: Hardeep Sabillon PT. Please sign and return to therapist. Thank you for your referral.
== END 2021-11-26 15:43 | disposition home or self-care (01) ==
LOC: HO.PTCHIC 14:00
PROVIDERS: PCP Internal Medicine; Visit Provider Internal Medicine
DX: M53.3 Sacrococcygeal disorders, not elsewhere classified (principal)
CPT/HCPCS: 97110; 97140; 97150; 97161

== ENCOUNTER 2021-12-15 13:51 | Outpatient (REF) | payer MEDICARE, SELFPAY ==
--- NOTE | ~2021-12-15 | MM_ITS ---
EXAMINATION: MM SCREENING DIGITAL BREAST TOMOSYNTHESIS, BILATERAL CLINICAL INFORMATION: Screening. Asymptomatic. The lifetime risk of breast cancer based on the Tyrer-Cuzick Model is 2%. COMPARISON: Mammography: 12/12/2020, 12/07/2019, 12/01/2018 TECHNIQUE: Digital breast tomosynthesis is performed in both the craniocaudal and mediolateral oblique views along with computer-aided detection (CAD). Synthesized 2D images are generated from the tomosynthesis. Additional left MLO view is provided. FINDINGS: There are scattered areas of fibroglandular density (ACR BI-RADS breast composition Category b). Parenchymal pattern is similar to prior studies and there is no interval mass or architectural abnormality or developing density. The left breast has 2 small stable oval nodularity anterior breast, better visualized on CC view. The axilla and skin contours are unremarkable. There are no significant changes. MM/MM tomosynthesis screening BI IMPRESSION: No mammographic evidence of malignancy. ASSESSMENT: BI-RADS 2: Benign RECOMMENDATION: Routine annual mammography screening. This patient's information was entered into a reminder system with a target due date for their next mammogram.
== END 2021-12-15 13:52 | disposition home or self-care (01) ==
LOC: HO.MAMMO 13:51
PROVIDERS: PCP Internal Medicine; Visit Provider Internal Medicine
DX: Z12.31 Encounter for screening mammogram for malignant neoplasm of breast (principal)
CPT/HCPCS: 77063; 77067

== ENCOUNTER 2022-02-12 06:08 | Outpatient (REF) | payer MEDICARE, SELFPAY ==
--- NOTE | ~2022-02-12 | XR_ITS ---
EXAMINATION: AP BILATERAL KNEE STANDING AND LEFT KNEE. CLINICAL INFORMATION: Pain left knee COMPARISON: None TECHNIQUE: AP bilateral knee standing. Left knee 2 views. FINDINGS: AP bilateral knee: There is a total left knee prosthesis with prosthetic components in satisfactory alignment. There is moderate to severe loss of medial compartment joint space with periarticular spurring. No bony erosive changes. The soft tissues are normal. Left knee: There is a total left knee prosthesis with prosthetic components in satisfactory alignment. There is no periprosthetic fracture or loose body seen. The soft tissues are normal. XR/XR knee LT 2V IMPRESSION: 1. Total left knee prosthesis in satisfactory alignment. There is no periprosthetic fracture or loosening. 2. Moderate to severe degenerative changes medial compartment left knee.
--- NOTE | ~2022-02-12 | XR_ITS ---
EXAMINATION: AP BILATERAL KNEE STANDING AND LEFT KNEE. CLINICAL INFORMATION: Pain left knee COMPARISON: None TECHNIQUE: AP bilateral knee standing. Left knee 2 views. FINDINGS: AP bilateral knee: There is a total left knee prosthesis with prosthetic components in satisfactory alignment. There is moderate to severe loss of medial compartment joint space with periarticular spurring. No bony erosive changes. The soft tissues are normal. Left knee: There is a total left knee prosthesis with prosthetic components in satisfactory alignment. There is no periprosthetic fracture or loose body seen. The soft tissues are normal. XR/XR knee standing BI IMPRESSION: 1. Total left knee prosthesis in satisfactory alignment. There is no periprosthetic fracture or loosening. 2. Moderate to severe degenerative changes medial compartment left knee.
== END 2022-02-12 06:09 | disposition home or self-care (01) ==
LOC: HO.HOSX 06:08
PROVIDERS: Visit Provider Physician Assistant
DX: M25.562 Pain in left knee (principal); M25.561 Pain in right knee; Z96.652 Presence of left artificial knee joint
CPT/HCPCS: 73560; 73565; 99212

== ENCOUNTER 2022-09-11 14:21 | Outpatient (REF) | payer MEDICARE, SELFPAY ==
--- NOTE | ~2022-09-11 | US_ITS ---
EXAMINATION: US VENOUS ULTRASOUND WITH DOPPLER LOWER EXTREMITY, RIGHT CLINICAL INFORMATION: Right leg swelling COMPARISON: None available. TECHNIQUE: Ultrasound of the deep veins is performed from the hip to the calf with compression sonography and color and pulse Doppler assessment. Spectral analysis with color-flow imaging is performed. FINDINGS: There is normal venous compression and respiratory variation and augmented flow. The visualized common femoral vein, superficial femoral vein, profunda femoral vein, popliteal vein, and the trifurcation region shows no evidence of deep venous thrombosis. There is no significant popliteal fossa cyst. US/US venous duplex LE RT IMPRESSION: No DVT demonstrated in the right lower extremity.
[2022-09-11 15:21] LABS: MANUAL DIFF FLAG NO
[2022-09-11 15:50] LABS: Basophils Absolute Auto 0.1 X10*3/uL (0.0-0.2); Basophils Percent Auto 1.4 % (0-2); Eosinophils Percent Auto 0.5 % (0-4); Hematocrit 27.3 % (37.0-47.0); Imm Gran Abs Auto 0.01 X10*3/uL (0.00-0.03); Imm Gran Pct Auto 0.2 % (0.0-0.4); Lymphocytes Absolute Auto 0.9 X10*3/uL (1.2-4.9); Lymphocytes Percent Auto 16.3 % (20-40); Mean Corpuscular HGB Conc 29.3 g/dl (31.0-35.0); Mean Corpuscular Hemoglobin 24.2 pg (27.0-33.0); Mean Corpuscular Volume 82.5 fL (80.0-98.0); Mean Platelet Volume 10.2 fL (9.4-12.3); Monocytes Absolute Auto 0.4 X10*3/uL (0.1-1.2); Monocytes Percent Auto 6.6 % (2-11); Neutrophils Absolute Auto 4.2 x10*3/uL (2.0-8.3); Platelet Count 353 X10*3/uL (160-400); Red Blood Count 3.31 X10*6/uL (4.20-5.50); Red Cell Distribution Width 14.6 % (11.0-16.0); White Blood Count 5.6 X10*3/uL (4.8-10.8)
[2022-09-11 16:46] LABS: Erythrocyte Sedimentation Rate 28 MM/HR (0-20)
[2022-09-11 19:37] LABS: Alanine Aminotransferase 24 U/L (0-31); Alkaline Phosphatase 61 U/L (39-117); Anion Gap 15 (12-20); Aspartate Amino Transferase 25 U/L (5-31); Bilirubin Total 0.2 mg/dL (0.0-1.0); Blood Urea Nitrogen 18 mg/dL (9-16); C Reactive Protein 0.16 mg/dL (< or = 0.50); Calcium 9.2 mg/dL (8.4-10.2); Carbon Dioxide 22 mmol/L (22-29); Chloride 109 mmol/L (96-108); Estimated Glomerular Filt Rate 57; Glucose Random 101 mg/dL (60-115); Potassium 4.7 mmol/L (3.3-5.1); Sodium 141 mmol/L (135-145); Total Protein 6.8 g/dL (6.5-8.0)
[2022-09-11 19:59] LABS: Vitamin B12 519 pg/mL (200-900)
== END 2022-09-11 14:22 | disposition home or self-care (01) ==
LOC: HO.US 14:21
PROVIDERS: PCP Internal Medicine; Visit Provider Internal Medicine
DX: M62.81 Muscle weakness (generalized) (principal); Z91.81 History of falling; R22.41 Localized swelling, mass and lump, right lower limb
CPT/HCPCS: 36415; 80053; 82550; 82607; 85025; 85652; 86140; 93971

== ENCOUNTER 2022-09-18 14:16 | Outpatient (REF) | payer MEDICARE, SELFPAY ==
[2022-09-18 17:22] LABS: Hemoglobin 7.4 g/dl (12.0-16.0); Lymphocytes Absolute Auto 1.7 X10*3/uL (1.2-4.9); Platelet Count 337 X10*3/uL (160-400); SCAN SMEAR FLAG 1
[2022-09-18 17:24] LABS: Basophils Absolute Auto 0.1 X10*3/uL (0.0-0.2); Basophils Percent Auto 1.3 % (0-2); Eosinophils Absolute Auto 0.1 X10*3/uL (0.0-0.4); Eosinophils Percent Auto 0.9 % (0-4); Hematocrit 25.2 % (37.0-47.0); Imm Gran Abs Auto 0.02 X10*3/uL (0.00-0.03); Imm Gran Pct Auto 0.4 % (0.0-0.4); Immature Retic Fraction 24.4 % (3.0-15.9); Lymphocytes Percent Auto 31.7 % (20-40); MANUAL DIFF FLAG SCAN; Mean Corpuscular HGB Conc 29.4 g/dl (31.0-35.0); Mean Corpuscular Hemoglobin 24.1 pg (27.0-33.0); Mean Corpuscular Volume 82.1 fL (80.0-98.0); Mean Platelet Volume 10.8 fL (9.4-12.3); Monocytes Absolute Auto 0.5 X10*3/uL (0.1-1.2); Monocytes Percent Auto 9.5 % (2-11); Neutrophils Percent Auto 56.2 % (45-73); Red Blood Count 3.07 X10*6/uL (4.20-5.50); Red Cell Distribution Width 15.2 % (11.0-16.0); Retic HGB Equivalent 24.7 pg (30.0-35.0); Reticulocyte Percent 1.6 % (0.5-1.8); Reticulocytes Absolute 0.049 X10*6/uL (0.026-0.095); White Blood Count 5.3 X10*3/uL (4.8-10.8)
[2022-09-18 17:41] LABS: Iron 43 mcg/dL (30-160); Percent Iron Saturation 12 % (15-50); Total Iron Binding Capacity 362 mcg/dL (228-428); Unsaturated Iron Binding 319 ug/dL
[2022-09-18 17:50] LABS: SLIDE REVIEW VERIFIED
[2022-09-18 18:10] LABS: Vitamin B12 472 pg/mL (200-900)
== END 2022-09-18 14:17 | disposition home or self-care (01) ==
LOC: HO.HMGCLDS 14:16
PROVIDERS: PCP Internal Medicine; Visit Provider Internal Medicine
DX: D64.9 Anemia, unspecified (principal); K21.9 Gastro-esophageal reflux disease without esophagitis; R53.83 Other fatigue
CPT/HCPCS: 36415; 82607; 83540; 85025; 85045

== ENCOUNTER 2022-09-23 10:49 | Inpatient (IN) | payer MEDICARE, SELFPAY ==
[2022-09-23] VITALS (7 sets, daily range): BP systolic 162–179; BP diastolic 67–80; PULSE 70–80; RESP 18; TEMP 36.6–37.2; O2SAT 98–100
--- NOTE | ~2022-09-23 | XR_ITS ---
EXAMINATION: XR CHEST CLINICAL INFORMATION: Leg swelling COMPARISON: None available. TECHNIQUE: 2 views of the chest were obtained. FINDINGS: A small hiatal hernia is present. No significant abnormality is noted involving the heart, lungs, mediastinum, bony thorax or soft tissues. XR/XR chest 2V IMPRESSION: No acute intrathoracic disease
--- NOTE | 2022-09-23 11:27 | ED_ITS ---
HPI - General Adult General Chief complaint: General Medical Stated complaint: Anemia Time Seen by Provider: 09/23/22 11:14 Source: patient Mode of arrival: ambulatory Limitations: no limitations History of Present Illness HPI narrative: 77yo female here with complaints of abnormal labs drawn on Wednesday. Patient re ports she saw her primary care doctor on Wednesday because she has been complaining of feeling fatigued, short of breath with bilateral leg swelling. Patient denies any associated chest pain, cough, fevers, chills. She did have an outpatient ultrasound of her right lower leg on September 11 which was negative for DVT. She was called today because her hemoglobin was low and she was referred to the ER for further evaluation. Patient denies any black or bloody stools, no abdominal pain. Patient reports she has been taking ibuprofen 800 mg 3 times day for the last 7 days for back pain. Related Data Home Medications Medication Instructions Recorded Confirmed omeprazole 20 mg capsule,delayed 20 mg PO DAILY 01/09/21 09/23/22 release calcium carb-ergocalciferol (vit 1 tab PO DAILY 09/23/22 09/23/22 D2) 600 mg calcium-200 unit tablet ibuprofen 800 mg tablet 800 mg PO Q6H 09/23/22 09/23/22 multivitamin 1 tab PO DAILY 09/23/22 09/23/22 Previous Rx's Medication Instructions Recorded acetaminophen 325 mg tablet 650 mg PO Q6H PRN Pain, Mild (Pain 02/20/21 Scale 1-3) 30 days #240 tabs docusate sodium 100 mg capsule 100 mg PO BID 30 days #60 caps 02/20/21 Allergies Allergy/AdvReac Type Severity Reaction Status Date / Time ciprofloxacin [Cipro] Allergy Intermediate Itching Verified 02/12/22 14:08 Biaxin Allergy Severe Dizziness Uncoded 02/18/21 06:15 Review of Systems Review of Systems: Yes all other systems are reviewed and are negative Constitutional: Constitutional: Reports no additional constitutional complaints, Denies body ache(s), Denies chills, Reports fatigue, Denies fever(s), Denies headache(s) and Denies weakness Eyes: Eyes: Reports no additional eye complaints and Denies change in vision ENT: Reports system reviewed and no additional complaints, except as documented, Denies dizziness, Denies headache(s), Denies nasal congestion, Denies nasal discharge and Denies neck pain Cardiovascular: Cardiovascular: Reports no additional cardiovascular compla ints, Denies chest pain, Reports leg edema and Reports dyspnea Respiratory: Respiratory: Reports no additional respiratory complaints, Denies cough and Reports dyspnea Gastrointestinal: Gastrointestinal: Reports no additional gastrointestinal complaints, Denies abdominal pain, Denies melena, Denies hematochezia, Denies coffee ground emesis, Denies diarrhea, Denies nausea and Denies vomiting Genitourinary: Genitourinary: Reports no additional female genitourinary complaints and Denies urinary incontinence Musculoskeletal: Musculoskeletal: Reports no additional musculoskeletal co mplaints, Denies back pain, Denies arthralgias, Denies joint swelling, Denies neck pain, Denies numbness and Denies tingling Integumentary/Breasts: Skin/Breast: Reports system reviewed and no additional complaints, except as docu and Denies rash Neurologic: Reports system reviewed and no additional complaints, except as documented, Denies dizziness, Denies headache(s), Denies numbness, Denies tingling and Denies weakness Endocrine: Endocrine: Reports fatigue PMFSH Past Medical History Attestation statement: The following information was validated with the patient. 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) Hx of appendectomy Hx of tonsillectomy Social History Social History Household Members: Spouse Household Members Other:: 3 Housing: House Are you a primary health care aide to a significant other at home: No Do you presently have visiting nurse or other home services: No Alcohol intake: never Patient Tobacco Use Status: Former Tobacco user Quit Date: Tobacco use type: Cigarette Smoked in Last 30 Days: No Second Hand Smoke Exposure: No Use of substances other than those prescribed or required for medical reasons: No Advance Directives: No Advance Directives Information Provided: Yes service: No Current occupational status: retired Current occupation: rt handed Physical Exam ED Vital Signs: Vital Signs - 24 hr 09/23/22 10:52 09/23/22 13:44 09/23/22 13:46 Temperature 98 F Pulse Rate 80 76 78 Respiratory Rate 18 Blood Pressure 174/80 H 168/67 H 177/72 H Pulse Oximetry 98 Oxygen Delivery Method Room Air 09/23/22 13:47 09/23/22 14:58 Temperature Pulse Rate 80 78 Respiratory Rate 18 Blood Pressure 164/76 H 179/80 H Pulse Oximetry 98 Oxygen Delivery Method Room Air BMI result Body Mass Index 30.0 Const General: cooperative, healthy appearing, comfortable and no acute distress Orientation/consciousness: patient oriented x3 Limitations: no limitations HENMT Head: Yes normal to inspection Ears: hearing grossly normal bilaterally Eyes Other: pale conjunctiva General: appearance normal, both eyes and all related structures Neck Neck: Yes normal visual inspection Chest Chest palpation & inspection: normal inspection of the chest Resp Effort & Inspection: normal respiratory effort Auscultation: clear to auscultation bilaterally Cardio Rate: regular rate Rhythm: regular rhythm Peripheral pulses: Peripheral pulses 2+ throughout GI Other: +dark stool on rectal exam Inspection: Yes normal to inspection Palpation (GI): Soft to palpation and nontender General: Yes no CVA tenderness Back/Spine/Pelvis Back: no CVA tenderness Thoracic/Lumbar Spine: thoracic and lumbar spine normal to inspection Skin General skin exam: no rashes or lesions noted Neuro General: patient oriented x3 and moves all extremities Cognition (Neuro): normal cognition Gait exam (Neuro): Normal gait present Extrem General: Yes no calf tenderness and Yes edema (2+ non pitting ) Course Course Course Narrative: 1315-Patient has black stool on exam. It is heme-positive. Her hemoglobin is low but is unchanged from previous. She has been taking NSAIDs quite frequently for chronic back pain. She may have a with upper GI bleed. I will speak to gastroenterology. She tells me she did have a colonoscopy 6 years ago at [facility] and this was normal. Medications Administered Discontinued Medications Generic Name Dose Route Start Last Admin Trade Name Freq PRN Reason Stop Dose Admin Pantoprazole Sodium 40 mg 09/23/22 13:32 09/23/22 14:15 Pantoprazole Sodium 40 Mg/10 Ml Vial IVPUSH 09/23/22 13:33 40 mg ONCE ONE Administration Medical Decision Making Medical Decision Making [facility] Narrative: This is a 77-year-old female who has had several weeks of fatigue, shortness of breath and bilateral leg swelling who went to her primary care doctor on Wednesday to have labs done. She was called today and informed her hemoglobin was low and she should come into the emergency room to be seen. Of note patient has been taking ibuprofen 800 mg 3 times daily for chronic back pain. She does deny any black or bloody stools. Will check labs, EKG, chest x-ray, occult stool Differential Diagnosis Differential Diagnoses: The differential diagnosis associated with the presentation includes Upper GI bleed, iron deficiency anemia, mild dysplastic syndrome Congestive heart failure Low concern for DVT or PE Admission/Observation Consideration of admission/observation: Escalation of care including admission/o bservation considered Patient with anemia with black stools with concern for UGIB necessitating urgent endoscopy Consult Healthcare Provider Management of the patient was discussed with: Hospitalist and Jr. [employer] Developer Patient with anemia with black stools which are heme-positive with concern for upper GI bleed. I spoke to Dr. Adorno who recommend PPI, NPO after midnight for endoscopy tomorrow Patient will need admission for the above. I spoke to Dr. Dean who accepted admission Lab Data [facility] Lab Attestation statement: I reviewed the patient's lab results. 09/23/22 12:03 09/23/22 12:03 Labs: Lab Results 09/23/22 09/23/22 09/23/22 Range/Units 12:02 12:02 12:02 WBC (4.8-10.8) X10*3/uL RBC (4.20-5.50) X10*6/uL Hgb (12.0-16.0) g/dl Hct (37.0-47.0) % MCV (80.0-98.0) fL MCH (27.0-33.0) pg MCHC (31.0-35.0) g/dl RDW (11.0-16.0) % Plt Count (160-400) X10*3/uL MPV (9.4-12.3) fL Immature Gran % (Auto) (0.0-0.4) % Neut % (Auto) (45-73) % Lymph % (Auto) (20-40) % [place] % (Auto) (2-11) % Eos % (Auto) (0-4) % Baso % (Auto) (0-2) % Lymph # (Auto) (1.2-4.9) X10*3/uL [place] # (Auto) (0.1-1.2) X10*3/uL Eos # (Auto) (0.0-0.4) X10*3/uL Baso # (Auto) (0.0-0.2) X10*3/uL Abs Immat Gran (auto) (0.00-0.03) X10*3/uL Absolute Neuts (auto) (2.0-8.3) x10*3/uL Absolute Nucleated RBC (0.0-0.012) X10*3/uL Nucleated RBC % (auto) (0.0-0.2) /100WBC PT 10.9 (10.0-13.1) SEC INR 1.0 (0.9-1.1) Sodium (135-145) mmol/L Potassium (3.3-5.1) mmol/L Chloride (96-108) mmol/L Carbon Dioxide (22-29) mmol/L Anion Gap (12-20) BUN (9-16) mg/dL Creatinine (0.5-1.4) mg/dL Estim Creat Clear Calc Estimated GFR Random Glucose (60-115) mg/dL Calcium (8.4-10.2) mg/dL Magnesium (1.6-2.6) mg/dL Total Bilirubin (0.0-1.0) mg/dL Direct Bilirubin (0.0-0.5) mg/dL AST (5-31) U/L ALT (0-31) U/L Alkaline Phosphatase (39-117) U/L Troponin I High Sens < 2.7 (<3.5-17.0) ng/L B-Natriuretic Peptide 87 (<100) pg/mL Total Protein (6.5-8.0) g/dL Albumin (3.5-5.0) g/dL Stool Occult Blood (NEGATIVE) Blood Type Antibody Screen 09/23/22 09/23/22 09/23/22 Range/Units 12:02 12:03 12:03 WBC 5.7 (4.8-10.8) X10*3/uL RBC 3.21 L (4.20-5.50) X10*6/uL Hgb 8.0 L (12.0-16.0) g/dl Hct 26.9 L (37.0-47.0) % MCV 83.8 (80.0-98.0) fL MCH 24.9 L (27.0-33.0) pg MCHC 29.7 L (31.0-35.0) g/dl RDW 18.3 H (11.0-16.0) % Plt Count 380 (160-400) X10*3/uL MPV 10.1 (9.4-12.3) fL Immature Gran % (Auto) 0.4 (0.0-0.4) % Neut % (Auto) 68.9 (45-73) % Lymph % (Auto) 20.0 (20-40) % [place] % (Auto) 8.2 (2-11) % Eos % (Auto) 1.1 (0-4) % Baso % (Auto) 1.4 (0-2) % Lymph # (Auto) 1.1 L (1.2-4.9) X10*3/uL [place] # (Auto) 0.5 (0.1-1.2) X10*3/uL Eos # (Auto) 0.1 (0.0-0.4) X10*3/uL Baso # (Auto) 0.1 (0.0-0.2) X10*3/uL Abs Immat Gran (auto) 0.02 (0.00-0.03) X10*3/uL Absolute Neuts (auto) 3.9 (2.0-8.3) x10*3/uL Absolute Nucleated RBC 0.000 (0.0-0.012) X10*3/uL Nucleated RBC % (auto) 0.0 (0.0-0.2) /100WBC PT (10.0-13.1) SEC INR (0.9-1.1) Sodium 141 (135-145) mmol/L Potassium 4.0 (3.3-5.1) mmol/L Chloride 107 (96-108) mmol/L Carbon Dioxide 25 (22-29) mmol/L Anion Gap 13 (12-20) BUN 16 (9-16) mg/dL Creatinine 0.84 (0.5-1.4) mg/dL Estim Creat Clear Calc 58.1 Estimated GFR > 60 Random Glucose 108 (60-115) mg/dL Calcium 9.9 D (8.4-10.2) mg/dL Magnesium 2.0 (1.6-2.6) mg/dL Total Bilirubin 0.3 (0.0-1.0) mg/dL Direct Bilirubin 0.1 (0.0-0.5) mg/dL AST 22 (5-31) U/L ALT 17 (0-31) U/L Alkaline Phosphatase 61 (39-117) U/L Troponin I High Sens (<3.5-17.0) ng/L B-Natriuretic Peptide (<100) pg/mL Total Protein 7.0 (6.5-8.0) g/dL Albumin 3.9 (3.5-5.0) g/dL Stool Occult Blood (NEGATIVE) Blood Type A Positive Antibody Screen NEGATIVE 09/23/22 Range/Units 12:29 WBC (4.8-10.8) X10*3/uL RBC (4.20-5.50) X10*6/uL Hgb (12.0-16.0) g/dl Hct (37.0-47.0) % MCV (80.0-98.0) fL MCH (27.0-33.0) pg MCHC (31.0-35.0) g/dl RDW (11.0-16.0) % Plt Count (160-400) X10*3/uL MPV (9.4-12.3) fL Immature Gran % (Auto) (0.0-0.4) % Neut % (Auto) (45-73) % Lymph % (Auto) (20-40) % [place] % (Auto) (2-11) % Eos % (Auto) (0-4) % Baso % (Auto) (0-2) % Lymph # (Auto) (1.2-4.9) X10*3/uL [place] # (Auto) (0.1-1.2) X10*3/uL Eos # (Auto) (0.0-0.4) X10*3/uL Baso # (Auto) (0.0-0.2) X10*3/uL Abs Immat Gran (auto) (0.00-0.03) X10*3/uL Absolute Neuts (auto) (2.0-8.3) x10*3/uL Absolute Nucleated RBC (0.0-0.012) X10*3/uL Nucleated RBC % (auto) (0.0-0.2) /100WBC PT (10.0-13.1) SEC INR (0.9-1.1) Sodium (135-145) mmol/L Potassium (3.3-5.1) mmol/L Chloride (96-108) mmol/L Carbon Dioxide (22-29) mmol/L Anion Gap (12-20) BUN (9-16) mg/dL Creatinine (0.5-1.4) mg/dL Estim Creat Clear Calc Estimated GFR Random Glucose (60-115) mg/dL Calcium (8.4-10.2) mg/dL Magnesium (1.6-2.6) mg/dL Total Bilirubin (0.0-1.0) mg/dL Direct Bilirubin (0.0-0.5) mg/dL AST (5-31) U/L ALT (0-31) U/L Alkaline Phosphatase (39-117) U/L Troponin I High Sens (<3.5-17.0) ng/L B-Natriuretic Peptide (<100) pg/mL Total Protein (6.5-8.0) g/dL Albumin (3.5-5.0) g/dL Stool Occult Blood POSITIVE (NEGATIVE) Blood Type Antibody Screen Independent Interpretation I performed an independent interpretation of an: EKG and Plain X-Ray Interpretation: I independently reviewed the EKG which shows normal sinus rhythm with a rate of 82, normal [place], normal QRS, normal I independently reviewed the x-ray and agree with radiologist's report Radiology Impression Discussion of test interpretation with radiology: I have reviewed the radiologist's reading. Radiologist Impression: Launch?Image [address] [address] XRay Report Signed Patient: Leni Bright MR#: [id number] : 1945 Acct:[id number] Age/Sex: 77 / F ADM Date: 09/23/22 Loc: .ED Attending Dr: Ordering Physician: Sangita Pollack NP Date of Service: 09/23/22 Procedure(s): XR chest 2V Accession Number(s): [id number] cc: Sangita Pollack NP~ EXAMINATION: XR CHEST CLINICAL INFORMATION: Leg swelling COMPARISON: None available. TECHNIQUE: 2 views of the chest were obtained. FINDINGS: A small hiatal hernia is present. No significant abnormality is noted involving the heart, lungs, mediastinum, bony thorax or soft tissues. XR/XR chest 2V IMPRESSION: No acute intrathoracic disease Discharge Plan Discharge Clinical Impression: Anemia Patient Disposition: Admitted As Inpatient
--- NOTE | 2022-09-23 11:44 | ECG_ITS ---
Test Reason : WEAKNESS Blood Pressure : / mmHG Vent. Rate : 085 BPM Atrial Rate : 085 BPM P-R Int : 134 ms QRS Dur : 080 ms QT Int : 374 ms P-R-T Axes : 057 005 049 degrees QTc Int : 445 ms Normal sinus rhythm Possible Left atrial enlargement Borderline ECG When compared with ECG of 21-JAN-2021 08:03, No significant change was found Referred By: Sangita Schaeffer Electronically Signed By:BELKYS HARTLEY
[2022-09-23 12:08] LABS: MANUAL DIFF FLAG NO
[2022-09-23 12:10] LABS: Basophils Absolute Auto 0.1 X10*3/uL (0.0-0.2); Basophils Percent Auto 1.4 % (0-2); Eosinophils Absolute Auto 0.1 X10*3/uL (0.0-0.4); Eosinophils Percent Auto 1.1 % (0-4); Hematocrit 26.9 % (37.0-47.0); Imm Gran Abs Auto 0.02 X10*3/uL (0.00-0.03); Imm Gran Pct Auto 0.4 % (0.0-0.4); Lymphocytes Absolute Auto 1.1 X10*3/uL (1.2-4.9); Mean Corpuscular HGB Conc 29.7 g/dl (31.0-35.0); Mean Corpuscular Hemoglobin 24.9 pg (27.0-33.0); Mean Corpuscular Volume 83.8 fL (80.0-98.0); Mean Platelet Volume 10.1 fL (9.4-12.3); Monocytes Absolute Auto 0.5 X10*3/uL (0.1-1.2); Monocytes Percent Auto 8.2 % (2-11); Neutrophils Absolute Auto 3.9 x10*3/uL (2.0-8.3); Neutrophils Percent Auto 68.9 % (45-73); Platelet Count 380 X10*3/uL (160-400); Red Blood Count 3.21 X10*6/uL (4.20-5.50); Red Cell Distribution Width 18.3 % (11.0-16.0); White Blood Count 5.7 X10*3/uL (4.8-10.8)
[2022-09-23 12:21] LABS: Prothrombin Time 10.9 SEC (10.0-13.1)
[2022-09-23 12:29] LABS: Alanine Aminotransferase 17 U/L (0-31); Albumin Level 3.9 g/dL (3.5-5.0); Alkaline Phosphatase 61 U/L (39-117); Anion Gap 13 (12-20); Aspartate Amino Transferase 22 U/L (5-31); Bilirubin Direct 0.1 mg/dL (0.0-0.5); Bilirubin Total 0.3 mg/dL (0.0-1.0); Blood Urea Nitrogen 16 mg/dL (9-16); Calcium 9.9 mg/dL (8.4-10.2); Carbon Dioxide 25 mmol/L (22-29); Chloride 107 mmol/L (96-108); Creatinine Clr Calc Pharmacy 58.1; Estimated Glomerular Filt Rate > 60; Glucose Random 108 mg/dL (60-115); Sodium 141 mmol/L (135-145)
[2022-09-23 12:34] LABS: B Type Natriuretic Peptide 87 pg/mL (<100)
[2022-09-23 12:39] LABS: Troponin-I High Sensitivity < 2.7 ng/L (<3.5-17.0)
[2022-09-23 12:40] LABS: OBS Int Ctl Valid YES; OBS1 POSITIVE (NEGATIVE)
--- NOTE | 2022-09-23 14:00 | PC.NURSE ---
Patient resting on stretcher calm and cooperatively. Patient is alert and oriented, denies pain at this time. Patient able to move all extremities independently and without issue.
[2022-09-23] MEDS: Pantoprazole Sodium 40 MG/10 ML VIAL IVPUSH (14:15)
--- NOTE | 2022-09-23 14:50 | PHA.MEDREC ---
Pharmacy Consult ? Medication Reconciliation Pharmacy has completed the medication reconciliation.
--- NOTE | 2022-09-23 15:02 | P.HPHOSP_ITS ---
History of Present Illness Date of Service: 09/23/22 Attending physician on admission: Kiko Noriega Chief Complaint: Anemia, fatigue Pt is a 77-year-old female with a PMH significant for?left TKA 2 years ago and chronic lower back pain who presents to the ED for evaluation of abnormal labs. Patient saw PCP on last Michele on 09/18/2022 complaining of SOB, fatigue, and bilateral swelling in her legs the last 2-3 weeks. Doppler ultrasound on 09/11/2022 was negative for DVT. Labs came back on [facility] 09/23/2019 and showed anemia of 7.4/25.2. PCP contacted patient and told her to go to the hospital for evaluation of anemia. Pt reports chronic ibuprophen use for chronic back pain. Patient denies lightheadedness, dizziness, abdominal pain. No orthopnea, PND. Pt denies hematochezia, melena. No chest pain/pressure, palpitations. No lower leg pain. In the ED Patient was afebrile but hypertensive. Labs were significant for H&H of 8.0/26.9. Stool positive for occult blood. All other labs unremarkable. CXR showed no acute intrathoracic disease. EKG demonstrated normal sinus rhythm wit hout evidence of ST elevations or depressions. Pt was treated with Protonix. Pt will be admitted to the hospital for treatment and further evaluation for likely upper GI bleed secondary to chronic NSAID use. Review of Systems Review of Systems: Anemia SOB Fatigue Lower leg edema Denies hematochezia, melena No fever, chills, abdominal pain Denies lower leg or calf pain No chest pain/ pressure, palpitations Yes all other systems are reviewed and are negative [facility] Medical History Arthritis of left knee GERD (gastroesophageal reflux disease) Hayfever Lumbar disc disease Osteoarthritis Stress incontinence Surgical History History of cataract extraction History of total left knee replacement (TKR) (02/18/21) Hx of appendectomy Hx of tonsillectomy Social History Household Members: Spouse Household Members Other:: 3 Housing: House Are you a primary acute care clinical nurse specialist to a significant other at home: No Do you presently have visiting nurse or other home services: No Alcohol intake: never Patient Tobacco Use Status: Former Tobacco user Quit Date: Tobacco use type: Cigarette Smoked in Last 30 Days: No Second Hand Smoke Exposure: No Use of substances other than those prescribed or required for medical reasons: No Currently Displaying Signs/Symptoms of Drug Intoxication Withdrawal: No Have you been hit, kicked, punched, or otherwise hurt by someone within the past year? If so, by whom?: No Do you feel safe in your current relationship?: Yes Is there a partner from a previous relationship who is making you feel unsafe now?: No Are you made to feel afraid or neglected: No Are you DNR?: No Advance Directives: No Advance Directives Information Provided: Yes Do you have thoughts of harming others: None Do you have a plan to hurt others: No Plan Recently lost weight without trying: No Nutrition Risks: No Nutritional Risk Patient : No : No Poor oral hygiene: No service: No Current occupational status: retired Current occupation: rt handed Meds Allergies Allergy/AdvReac Type Severity Reaction Status Date / Time ciprofloxacin [Cipro] Allergy Intermediate Itching Verified 02/12/22 14:08 Biaxin Allergy Severe Dizziness Uncoded 02/18/21 06:15 Active Medications: Current Medications Pharmacy Consult (Consult Rx Perform Med Rec) 1 each MISCELLANE ONCE PRN PRN Reason: Consult order Home Medications Medication Instructions Recorded Confirmed Last Taken Type calcium carb-ergocalciferol (vit 1 tab PO DAILY 09/23/22 09/23/22 Unknown History D2) 600 mg calcium-200 unit tablet multivitamin 1 tab PO DAILY 09/23/22 09/23/22 Unknown History Physical Exam Vital Signs and Narrative: Vital Signs: Last Vital Signs Temp 98 F 09/23/22 10:52 Pulse 78 09/23/22 14:58 Resp 18 09/23/22 14:58 BP 179/80 H 09/23/22 14:58 Pulse Ox 98 09/23/22 14:58 O2 Del Method Room Air 09/23/22 14:58 BMI result Body Mass Index 30.0 Constitutional: Alert, in no acute distress. Mental Status: Oriented to person, place and time. Eyes: Pupils are equal, round, and reactive to light. Ear, Nose, and Throat: Oropharynx clear, mucous membranes moist. Ears and nose without deformities. Trachea midline. Respiratory: Clear to auscultation bilaterally. No wheezing, rales, or rhonchi. Cardiovascular: S1, S2 regular. No murmurs, rubs, or gallops. Gastrointestinal: Abdomen soft, non-tender, non-distended. Normal bowel sounds. Neurologic: Cranial nerves II-XII are grossly intact bilaterally. No focal neurological deficits. Moves all extremities spontaneously. Skin: No rashes or lesions noted. Musculoskeletal: No cyanosis or clubbing. Extremities: 1+ bilateral lower leg edema, right worse than left. Psychiatric: Normal mood and affect. Results Labs 09/23/22 12:03 09/23/22 12:03 Labs: Laboratory Results - last 24 hr 09/23/22 09/23/22 09/23/22 12:02 12:02 12:02 MCV MCH MCHC RDW Plt Count MPV Immature Gran % (Auto) Neut % (Auto) Lymph % (Auto) [place] % (Auto) Eos % (Auto) Baso % (Auto) Lymph # (Auto) [place] # (Auto) Eos # (Auto) Baso # (Auto) Abs Immat Gran (auto) Absolute Neuts (auto) Absolute Nucleated RBC Nucleated RBC % (auto) PT 10.9 INR 1.0 Anion Gap Estim Creat Clear Calc Estimated GFR Random Glucose Calcium Magnesium Total Bilirubin Direct Bilirubin AST ALT Alkaline Phosphatase Troponin I High Sens < 2.7 B-Natriuretic Peptide 87 Total Protein Albumin Stool Occult Blood Blood Type Antibody Screen 09/23/22 09/23/22 09/23/22 12:02 12:03 12:03 MCV 83.8 MCH 24.9 L MCHC 29.7 L RDW 18.3 H Plt Count 380 MPV 10.1 Immature Gran % (Auto) 0.4 Neut % (Auto) 68.9 Lymph % (Auto) 20.0 [place]ord % (Auto) 8.2 Eos % (Auto) 1.1 Baso % (Auto) 1.4 Lymph # (Auto) 1.1 L [place] # (Auto) 0.5 Eos # (Auto) 0.1 Baso # (Auto) 0.1 Abs Immat Gran (auto) 0.02 Absolute Neuts (auto) 3.9 Absolute Nucleated RBC 0.000 Nucleated RBC % (auto) 0.0 PT INR Anion Gap 13 Estim Creat Clear Calc 58.1 Estimated GFR > 60 Random Glucose 108 Calcium 9.9 D Magnesium 2.0 Total Bilirubin 0.3 Direct Bilirubin 0.1 AST 22 ALT 17 Alkaline Phosphatase 61 Troponin I High Sens B-Natriuretic Peptide Total Protein 7.0 Albumin 3.9 Stool Occult Blood Blood Type A Positive Antibody Screen NEGATIVE 09/23/22 12:29 MCV MCH MCHC RDW Plt Count MPV Immature Gran % (Auto) Neut % (Auto) Lymph % (Auto) [place] % (Auto) Eos % (Auto) Baso % (Auto) Lymph # (Auto) [place] # (Auto) Eos # (Auto) Baso # (Auto) Abs Immat Gran (auto) Absolute Neuts (auto) Absolute Nucleated RBC Nucleated RBC % (auto) PT INR Anion Gap Estim Creat Clear Calc Estimated GFR Random Glucose Calcium Magnesium Total Bilirubin Direct Bilirubin AST ALT Alkaline Phosphatase Troponin I High Sens B-Natriuretic Peptide Total Protein Albumin Stool Occult Blood POSITIVE Blood Type Antibody Screen Imaging Radiologist's Impressions: Impressions Chest X-Ray 09/23/22 12:24 IMPRESSION: No acute intrathoracic disease Assessment and Plan (1) Anemia: Status: Acute (2) Blood in stool: Status: Acute Plan Pt is a 77-year-old female with a PMH significant for?left TKA 2 years ago and chronic lower back pain who presents to the ED for evaluation of abnormal labs. Patient saw PCP on last Wednesday on 09/18/2022 complaining of SOB, fatigue, and bilateral swelling in her legs the last 2-3 weeks. Pt will be admitted to the hospital for treatment and further evaluation for likely upper GI bleed secondary to chronic NSAID use. Anemia in the setting of likely UGIB H&H 8.0/26.9, stool positive for occult blood, black stool noted on physical exam by ED clinician Likely secondary to chronic NSAID use IV protonix GI consult, endoscopy scheduled for tomorrow NPO after midnight Pneumatic boots Follow CBC Lower leg edema Pt with 2+ pitting lower leg edema, right worse than left x2-3 weeks Outpatient doppler negative for DVT BNP negative CXR negative for pleural effusion Possibly secondary to NSAID use Full Code Attending:?Dr. Noriega DVT Prophylaxis: Pneumatic boots Pt will require a hospitalization of at least two nights for treatment and further evaluation for likely upper GI bleed secondary to chronic NSAID use. Time Spent With Patient Time: Total time managing care of this patient today ____ minutes. Quality Stroke Does the patient have a stroke diagnosis?: No VTE Prior VTE?: No VTE Risk Level:: Medical - moderate - high VTE Device Contraindication: N/A - Device Ordered VTE Drug Contraindication: Treatment Not Indicated
--- NOTE | 2022-09-23 16:00 | MHC.EDTECH ---
Brought patient a new clean liberty.
[2022-09-23 16:11] LABS: Appearance Urine Clear; Color Urine Yellow; Glucose Urine UA Negative (Negative); Leukocyte Esterase Urine Negative (Negative); Nitrite Urine Negative (Negative); Urine Blood Negative (Negative); Urine Ketones Negative (Negative); Urine Protein Negative (Neg-Trace)
--- NOTE | 2022-09-23 16:34 | PM.EVENT ---
Event Note Date of Service: 09/23/22 Event Note: GI consult dictated anemia and black stools c/w ugi blood loss possibly due to NSAID use. EGD 09/24 for further evaluation. She is aware of risks and benefits and agrees to proceed. Continue ppi, follow hct. Time Spent With Patient Time: Total time managing care of this patient today ____ minutes.
--- NOTE | 2022-09-23 16:42 | MHC.SHP ---
Pre-Procedural Eval Section A Date of Service: 09/23/22 The patient is an INPATIENT: Yes Changes since office visit: No Cold of Flu in the past 2 weeks, No New Medical Problems, No Changes in Medication and No Patient answered all questions The History & Physical has been completed within 30 days and I have reviewed it.: Yes Section B Chief Complaint: Anemia Allergies: Allergies Allergy/AdvReac Type Severity Reaction Status Date / Time ciprofloxacin [Cipro] Allergy Intermediate Itching Verified 02/12/22 14:08 Biaxin Allergy Severe Dizziness Uncoded 02/18/21 06:15 Plan I have reviewed the history and physical and performed a pertinent physical examination on my patient. No changes have occurred unless specified. Time Spent With Patient Time: Total time managing care of this patient today ____ minutes.
[2022-09-23] MEDS: 0.9 % Sodium Chloride Flush 3 ML SYRINGE IVFLUSH (21:09)
[2022-09-24] VITALS (7 sets, daily range): BP systolic 138–182; BP diastolic 64–88; PULSE 69–95; RESP 16–20; TEMP 36.5–37.2; O2SAT 96–99
--- NOTE | 2022-09-24 01:11 | CONS_ITS ---
DATE OF SERVICE: 09/23/2022 REASON FOR CONSULTATION: Anemia, black stools, and NSAID usage. HISTORY OF PRESENT ILLNESS: The patient is a pleasant 77-year-old woman, who came to the emergency department at the request of her primary care provider after lab work done showed a low hematocrit. She was seen by her primary care provider with some fatigue, shortness of breath, and lower extremity swelling, and was evaluated with lab work. Her hematocrit was noted to be low at 25.2 down from 27.3, approximately 7 days earlier. She reports no rectal bleeding. She has been taking ibuprofen for back pain and Celebrex prior to that. She denies a prior history of peptic ulcer disease. She does take omeprazole 40 mg every other day because of complaints of reflux. She reports undergoing upper endoscopy and colonoscopy at another facility 5 or 6 years ago, which were reportedly fairly unremarkable. She denies any black stools, but was evaluated in the emergency department with rectal examination, which did show black stool, that was occult blood positive. Previous iron studies done as an outpatient also are consistent with iron deficiency with an iron saturation of 12%. PAST MEDICAL HISTORY: 1. Back pain. 2. Recent anemia as above. 3. Gastroesophageal reflux disease. 4. Arthritis. 5. Stress urinary incontinence. PAST SURGICAL HISTORY: Includes left knee replacement, appendectomy, tonsillectomy, and cataract. CURRENT MEDICATIONS: Her current medication list is reviewed in the chart. ALLERGIES: CIPROFLOXACIN AND BIAXIN. FAMILY HISTORY: This is reviewed with the patient and is negative for upper GI tract malignancy. SOCIAL HISTORY: There is no current tobacco, alcohol, or substance abuse. REVIEW OF SYSTEMS: SKIN: No pruritus. HEENT: Negative. CARDIOPULMONARY: She denies shortness of breath or chest pain currently. GASTROINTESTINAL: As above. GENITOURINARY: Negative. NEUROPSYCHIATRIC: Negative. PHYSICAL EXAMINATION: GENERAL: A pleasant female, sitting comfortably on the stretcher. VITAL SIGNS: Reviewed in electronic medical record and are stable. SKIN: Pale. HEENT: No scleral icterus. NECK: Without lymphadenopathy or thyromegaly. LUNGS: Clear. HEART: Regular rate and rhythm. S1, S2. No murmur. ABDOMEN: Soft. No focal masses or tenderness. Bowel sounds are present. No organomegaly is noted. EXTREMITIES: Remarkable for some edema. LABORATORY DATA: Reviewed. IMPRESSION: Anemia with black stool. This may represent an underlying NSAID-induced ulcer or gastritis, despite her use of omeprazole. I have discussed endoscopy with her including risks and benefits of the procedure. She understands and agrees to proceed. This will be arranged for tomorrow. In the interim, I agree with treating her with a proton pump inhibitor and I have instructed her to discontinue NSAIDs at this time. Thanks for asking me to see her. I will follow her in the hospital with you. MD KAIA Loera/LEO / [phone]
[2022-09-24] MEDS: 0.9 % Sodium Chloride Flush 3 ML SYRINGE IVFLUSH (01:17)
[2022-09-24] MEDS: Melatonin 3 MG TABLET 9 MG PO (02:33)
[2022-09-24] MEDS: diphenhydrAMINE HCL 50 MG/ML VIAL IVPUSH (02:34)
--- NOTE | 2022-09-24 04:35 | PC.NURSE ---
PATIENT NOTED TO BE AWAKE APPROX., 0100, WALKING IN ROOM WITH WALKER AND SUPERVISION, DRESSED HERSELF WHILE ELECTRONICS TECHNOLOGY DEPARTMENT CHAIR ENCOURAGED PT TO KEEP HOSPITAL ATTIRE ON AND BACK TO BED, HOWEVER, PT STATING SHE WANTS TO GO HOME AND IS CALLING HER TO PICK HER UP. LENGTHILY DISCUSSION WITH PT, ENCOURAGED HER TO RECONSIDER HER DECISION, REMINDED HER OF HER MORNING ENDOSCOPY PLANNED AND ALL THE BENEFITS OF STAYING THRU NIGHT TO COMPLETE HER PLAN OF CARE. PT STATED NO FOR ALMOST 45 MINUTES, TALKED OF NOT BEING ABLE TO SLEEP,(OFFERED TO CALL MD FOR SLEEPING AID), COULD HEAR PT NOISE ACROSS HALLWAY.........SHE CONTINUED TO WANT THE PAPER TO SIGN AMA DESPITE ALL TALKS. NURSING MUSIC THERAPIST ALERTED AND CAME TO TALK TO PT WHO STILL WISHED TO LEAVE, HOSPITALIST THEN ALERTED AND HE CAME TO ROOM ALSO. PT THEN WILLING TO STAY IF GIVEN SOMETHING TO HELP SLEEP. MEDICATIONS ORDERED AND GIVEN AT 0245, ASSISTED TO BR AND CHANGED TO [facility] AND INTO BED. PT DENIED PAIN, NEW IV SITE OF #20 LEFT FOREARM ESTABLISHED, OLD IV AT LEFT AC REMOVED LEAKING, CATHETER INTACT. HOB UP, CALL MCCANN WITHIN REACH, ROOM DARKENED AND QUIET. WILL CONTINUE TO MONITOR CLOSELY, BED ALARM IN USE FOR SAFETY
[2022-09-24] MEDS: Pantoprazole Sodium 40 MG/10 ML VIAL IVPUSH (06:01)
[2022-09-24 06:32] LABS: Hematocrit 27.2 % (37.0-47.0); Hemoglobin 8.1 g/dl (12.0-16.0); Mean Corpuscular HGB Conc 29.8 g/dl (31.0-35.0); Mean Corpuscular Hemoglobin 25.1 pg (27.0-33.0); Mean Corpuscular Volume 84.2 fL (80.0-98.0); Mean Platelet Volume 10.2 fL (9.4-12.3); Platelet Count 374 X10*3/uL (160-400); Red Blood Count 3.23 X10*6/uL (4.20-5.50); Red Cell Distribution Width 18.9 % (11.0-16.0); White Blood Count 6.1 X10*3/uL (4.8-10.8)
--- NOTE | 2022-09-24 08:54 | PM.EVENT ---
Event Note Date of Service: 09/24/22 Event Note: EGD dictated 2 6mm gastric ulcers, likely nsaid related antral biopsies obtained rec advance diet and discharge omeprazole 40 mg daily no nsaids repeat egd 3mos colonoscopy also at that time due to iron def anemia. Time Spent With Patient Time: Total time managing care of this patient today ____ minutes.
--- NOTE | 2022-09-24 08:56 | PM.OP ---
Brief Operative Note Date of Service: 09/24/22 Pre-op diagnosis: ugib Post-op diagnosis: same Procedure: egd Surgeon: Ole Adorno Anesthesia: MAC Was an [employer] Porter used for this Procedure?: No Estimated blood loss (mL): 2 Pathology: other Condition: stable Disposition: PACU
--- NOTE | 2022-09-24 09:27 | OP_ITS ---
DATE OF SERVICE: 09/24/2022 SURGEON: Ole Adorno MD INDICATIONS: Upper GI bleeding. PREOPERATIVE DIAGNOSIS: POSTOPERATIVE DIAGNOSIS: PROCEDURE PERFORMED: Upper endoscopy with biopsy. ESTIMATED BLOOD LOSS: COMPLICATIONS: ANESTHESIA: Monitored anesthesia care. ASSISTANTS: SPECIMENS: DESCRIPTION OF PROCEDURE: A history and physical were performed. The risks and benefits of the procedure were explained to the patient and informed consent was obtained. The patient was placed in the left lateral decubitus position. The Olympus video gastroscope was introduced into the esophagus, stomach, and duodenum. Examination was performed. The scope was removed. She tolerated the procedure well and was returned to the recovery area in stable condition. FINDINGS: 1. The esophagus was normal. 2. The stomach showed a 4 cm hiatal hernia. There was a single ulcer just below the hiatal hernia measuring approximately 6 mm with a clean base. A second ulcer was identified in the antrum at approximately 2 o'clock 5 cm before the pylorus. This also had a clean base and measured approximately 6 to 7 mm. No therapy was performed. Antral biopsies were obtained to rule out H pylori. 3. Duodenum, the bulb and second portion were normal. IMPRESSION: Gastric ulcers. RECOMMENDATION: 1. Discontinue all NSAIDs. 2. Continue omeprazole 40 mg daily. 3. Repeat endoscopy is recommended for 3 months from now. She should undergo colonoscopy at the same time as she is iron deficient and it has been more than 5 years since her last colonoscopy. MD KAIA Loera/MODL / [phone]
--- NOTE | 2022-09-24 10:16 | P.DS_ITS ---
DS: Providers Provider Date of Service: 09/24/22 Date of admission: 09/23/22 15:38 Primary care physician: Andry Mendoza MD Consults: 09/23/22 15:45 Consult to Gastroenterology Routine Consulting Provider: Ole Adorno Reason for consultation: Anemia, heme+ stool, ?UGIB DS: Diagnosis Discharge Diagnosis (1) Anemia: Status: Acute (2) Blood in stool: Status: Acute (3) Gastric ulcer: Status: Acute DS: Summary Hospital Course Hospital Course: Admission note HPI Pt is a 77-year-old female with a PMH significant for?left TKA 2 years ago and chronic lower back pain who presents to the ED? for evaluation of abnormal labs. Patient saw PCP on last Michele on 09/18/2022 complaining of SOB, fatigue, and bilateral swelling in her legs the last 2-3 weeks.? Doppler ultrasound on 09/11/2022 was negative for DVT. Labs came back on [facility] 09/23/2019 and showed anemia of 7.4/25.2. PCP contacted patient and told her to go to the hospital for evaluation of anemia. Pt reports chronic ibuprophen use for chronic back pain. Patient denies lightheadedness, dizziness, abdominal pain.? No orthopnea, PND. Pt denies hematochezia, melena. No chest pain/pressure, palpitations. No lower leg pain. In the ED? Patient was afebrile but hypertensive. Labs were significant for H&H of 8.0/26.9. Stool positive for occult blood. All other labs unremarkable. CXR showed no acute intrathoracic disease. EKG demonstrated normal sinus rhythm without evidence of ST elevations or depressions. Pt was treated with Protonix. Pt will be admitted to the hospital for treatment and further evaluation for likely upper GI bleed secondary to chronic NSAID use. Hospital course The patient was admitted for abnormal blood work showing acute anemia and evidence of blood in stool. treated with IV pantoprazole. Hb levels remained around 8 during admission, no transfusion needed. evaluated by GI who did an upper endoscopy showing evidence of gastric ulcers as the likely cause of anemia and GI bleed from usage on NSAIDs. GI suggested outpatient follow up in 3 months for repeat the study. to be discharged on Omeprazole and iron supplement. She made a quick recovery and tolerated diet therefore discharged earlier than expected. to follow CBC as outpatient. Take Omeprazole as prescrbied Take Iron pills for supplement Avoid Naproxen, Advil and all other NSAIDs To follow with dr Adorno as outpatient for repeat EGD in 3 months To repeat blood test next week Time Spent with Patient Time attestation: Total time managing care of this patient today ____ minutes. Discharge coordination time: Greater than 30 minutes Quality: Safe Use of Opioids Does Pt have an Active Cancer Diagnosis on the Problem List?: No Quality: Stroke Does the patient have a stroke diagnosis?: No Physical Exam Vital Signs: Vital Signs: Last Vital Signs Temp 98.2 F 09/24/22 09:12 Pulse 69 09/24/22 09:12 Resp 16 09/24/22 09:12 BP 146/64 H 09/24/22 09:12 Pulse Ox 96 09/24/22 09:12 O2 Del Method Room Air 09/24/22 09:12 BMI result Body Mass Index 30.0 Const: Other: Constitutional : Awake, interactive, not in distress Neck : Normal inspection, Supple Cardiovascular : RRR, no JVP, no lower extremity edema Respiratory : good bilateral air entry, no crackles, wheezes or rhonchi Gastrointestinal: soft, lax, Normal bowel sounds, Non tender Skin : Warm, Dry Neurological : Alert & oriented x3, No focal deficit , CN 2-12 within normal DS: Data Data Completed and Pending Completed studies during hospitalization [Text1]: Procedures Replacement of Left Knee Joint with Synthetic Substitute, Uncemented, Open Approach (02/18/21) Pending studies at discharge: Pending at discharge 09/24/22 08:42 Surgical [PTH] Routine Labs on day of discharge: Laboratory Results - last 24 hr 09/23/22 09/23/22 09/23/22 12:02 12:02 12:02 WBC RBC Hgb Hct MCV MCH MCHC RDW Plt Count MPV Immature Gran % (Auto) Neut % (Auto) Lymph % (Auto) [place] % (Auto) Eos % (Auto) Baso % (Auto) Lymph # (Auto) [place] # (Auto) Eos # (Auto) Baso # (Auto) Abs Immat Gran (auto) Absolute Neuts (auto) Absolute Nucleated RBC Nucleated RBC % (auto) PT 10.9 INR 1.0 Sodium Potassium Chloride Carbon Dioxide Anion Gap BUN Creatinine Estim Creat Clear Calc Estimated GFR Random Glucose Calcium Magnesium Total Bilirubin Direct Bilirubin AST ALT Alkaline Phosphatase Troponin I High Sens < 2.7 B-Natriuretic Peptide 87 Total Protein Albumin Urine Color Urine Appearance Urine pH Ur Specific [place] Urine Protein Urine Glucose (UA) Urine Ketones Urine Blood Urine Nitrite Ur Leukocyte Esterase Stool Occult Blood Blood Type Antibody Screen 09/23/22 09/23/22 09/23/22 12:02 12:03 12:03 WBC 5.7 RBC 3.21 L Hgb 8.0 L Hct 26.9 L MCV 83.8 MCH 24.9 L MCHC 29.7 L RDW 18.3 H Plt Count 380 MPV 10.1 Immature Gran % (Auto) 0.4 Neut % (Auto) 68.9 Lymph % (Auto) 20.0 [place] % (Auto) 8.2 Eos % (Auto) 1.1 Baso % (Auto) 1.4 Lymph # (Auto) 1.1 L [place] # (Auto) 0.5 Eos # (Auto) 0.1 Baso # (Auto) 0.1 Abs Immat Gran (auto) 0.02 Absolute Neuts (auto) 3.9 Absolute Nucleated RBC 0.000 Nucleated RBC % (auto) 0.0 PT INR Sodium 141 Potassium 4.0 Chloride 107 Carbon Dioxide 25 Anion Gap 13 BUN 16 Creatinine 0.84 Estim Creat Clear Calc 58.1 Estimated GFR > 60 Random Glucose 108 Calcium 9.9 D Magnesium 2.0 Total Bilirubin 0.3 Direct Bilirubin 0.1 AST 22 ALT 17 Alkaline Phosphatase 61 Troponin I High Sens B-Natriuretic Peptide Total Protein 7.0 Albumin 3.9 Urine Color Urine Appearance Urine pH Ur Specific [place] Urine Protein Urine Glucose (UA) Urine Ketones Urine Blood Urine Nitrite Ur Leukocyte Esterase Stool Occult Blood Blood Type A Positive Antibody Screen NEGATIVE 09/23/22 09/23/22 09/24/22 12:29 15:55 05:33 WBC 6.1 RBC 3.23 L Hgb 8.1 L Hct 27.2 L MCV 84.2 MCH 25.1 L MCHC 29.8 L RDW 18.9 H Plt Count 374 MPV 10.2 Immature Gran % (Auto) Neut % (Auto) Lymph % (Auto) [place] % (Auto) Eos % (Auto) Baso % (Auto) Lymph # (Auto) [place] # (Auto) Eos # (Auto) Baso # (Auto) Abs Immat Gran (auto) Absolute Neuts (auto) Absolute Nucleated RBC 0.000 Nucleated RBC % (auto) 0.0 PT INR Sodium Potassium Chloride Carbon Dioxide Anion Gap BUN Creatinine Estim Creat Clear Calc Estimated GFR Random Glucose Calcium Magnesium Total Bilirubin Direct Bilirubin AST ALT Alkaline Phosphatase Troponin I High Sens B-Natriuretic Peptide Total Protein Albumin Urine Color Yellow Urine Appearance Clear Urine pH 7.0 Ur Specific [place] 1.010 Urine Protein Negative Urine Glucose (UA) Negative Urine Ketones Negative Urine Blood Negative Urine Nitrite Negative Ur Leukocyte Esterase Negative Stool Occult Blood POSITIVE Blood Type Antibody Screen Imaging Chest x-ray: Radiologist's impression: ITS Impressions Chest X-Ray 09/23/22 12:24 IMPRESSION: No acute intrathoracic disease Discharge Plan Discharge Anticipated Discharge Date/Time: 09/24/22 10:50 Patient Disposition: Home, Self-Care Discharge Diagnosis: Gastric ulcers Referrals: Andry Mendoza MD [Primary Care Provider] - 1 Week Discharge Medications: New omeprazole 40 mg capsule,delayed release(DR/EC) 40 mg PO DAILY Qty: 90 2RF ferrous sulfate 324 mg (65 mg iron) tablet,delayed release (DR/EC) 324 mg PO DAILY Qty: 90 0RF Continued acetaminophen 325 mg Tablet 650 mg PO Q6H PRN (Reason: Pain, Mild (Pain Scale 1-3)) 30 Days Qty: 240 0RF docusate sodium 100 mg Capsule 100 mg PO BID 30 Days Qty: 60 0RF multivitamin Tablet 1 tab PO DAILY calcium carbonate-vitamin D2 600 mg calcium- 200 unit Tablet 1 tab PO DAILY Discontinued ibuprofen 800 mg Tablet 800 mg PO Q6H omeprazole 20 mg capsule,delayed release(DR/EC) 20 mg PO DAILY Discharge Orders: Discharge Order (Routine); Ordered 09/24/22 Ordered By: Kiko Noriega Diet: Advance to usual diet Activity on Discharge: As tolerated Stand Alone Forms: Patient Portal Discharge page Other Ambulatory Orders: Complete Blood Count no Diff (Routine) Timeframe: 1 Week Facility: [facility] - Location: [address] [place] [address]-Lab Ordered By: Kiko Noriega Care Plan Goals: Read below Health Concerns: Read below Plan of Treatment: Read below Assessment: You were admitted to the hospital for evaluation of low blood levels. had an EGD done with findings of gastric ulcers from pain medicaitons usage. blood level remained stable. Take Omeprazole as prescrbied Take Iron pills for supplement Avoid Naproxen, Advil and all other NSAIDs To follow with dr Adorno as outpatient for repeat EGD in 3 months To repeat blood test next week
--- NOTE | 2022-09-24 11:05 | P.CONAN_ITS ---
[facility] Active Problems Active Problems: All Active Problems (Updated 09/23/22 @ 16:06 by JASON Porter) Blood in stool (Acute) Anemia (Acute) Status post total knee replacement, left (Acute) Past Medical History Medical History Arthritis of left knee GERD (gastroesophageal reflux disease) Hayfever Lumbar disc disease Osteoarthritis Stress incontinence Family History Family history of problems with anesthesia: No Surgical History Surgical History History of cataract extraction History of total left knee replacement (TKR) (02/18/21) Hx of appendectomy Hx of tonsillectomy History of Problems with Anesthesia: No Social History Social History Household Members: Spouse Household Members Other:: 3 Housing: House Are you a primary respiratory care technician to a significant other at home: No Do you presently have visiting nurse or other home services: No Alcohol intake: never Patient Tobacco Use Status: Former Tobacco user Quit Date: Tobacco use type: Cigarette Smoked in Last 30 Days: No Second Hand Smoke Exposure: No Use of substances other than those prescribed or required for medical reasons: No Currently Displaying Signs/Symptoms of Drug Intoxication Withdrawal: No Have you been hit, kicked, punched, or otherwise hurt by someone within the past year? If so, by whom?: No Do you feel safe in your current relationship?: Yes Is there a partner from a previous relationship who is making you feel unsafe now?: No Are you made to feel afraid or neglected: No Are you DNR?: No Advance Directives: No Advance Directives Information Provided: Yes Do you have thoughts of harming others: None Do you have a plan to hurt others: No Plan Recently lost weight without trying: No Nutrition Risks: No Nutritional Risk Patient : No : No Poor oral hygiene: No service: No Current occupational status: retired Current occupation: rt handed Meds Allergies Allergy/AdvReac Type Severity Reaction Status Date / Time ciprofloxacin [Cipro] Allergy Intermediate Itching Verified 02/12/22 14:08 Biaxin Allergy Severe Dizziness Uncoded 02/18/21 06:15 Active Medications: Current Medications Acetaminophen (Acetaminophen 325 Mg Tablet) 650 mg PO Q6H PRN PRN Reason: Pain, Mild (Pain Scale 1-3) Calcium Carbonate/Cholecalciferol (Calcium + Vitamin D 250 Mg Tablet) 500 mg PO DAILY [facility] Last Admin: 09/24/22 07:48 Dose: Not Given Docusate Sodium (Docusate Sodium 100 Mg Capsule) 100 mg PO DAILY PRN PRN Reason: Constipation Docusate Sodium (Docusate Sodium 100 Mg Capsule) 100 mg PO BID [facility] Last Admin: 09/24/22 07:48 Dose: Not Given Multivitamins/Vitamin C (Multivitamin Tablet) 1 tab PO DAILY [facility] Last Admin: 09/24/22 07:48 Dose: Not Given Ondansetron HCl (Ondansetron Hcl 4 Mg/2 Ml Vial) 4 mg IVPUSH Q8H PRN PRN Reason: Nausea and Vomiting Pantoprazole Sodium (Pantoprazole Sodium 40 Mg/10 Ml Vial) 40 mg IVPUSH BID@0630,1630 [facility] Last Admin: 09/24/22 06:01 Dose: 40 mg Pharmacy Consult (Consult Rx Perform Med Rec) 1 each MISCELLANE ONCE PRN PRN Reason: Consult order Sodium Chloride (0.9 % Sodium Chloride Flush 3 Ml Syringe) 3 ml IVFLUSH QSHIFT [facility] Last Admin: 09/24/22 07:47 Dose: Not Given Home Medications Medication Instructions Recorded Confirmed Last Taken Type calcium carb-ergocalciferol (vit 1 tab PO DAILY 09/23/22 09/23/22 Unknown History D2) 600 mg calcium-200 unit tablet multivitamin 1 tab PO DAILY 09/23/22 09/23/22 Unknown History Exam Exam Date and Time: September 24, 2022 1105 Height,Weight and Vital Signs: Height 5 ft 4 in Weight 79.379 kg Last Vital Signs Temp 98.2 F 09/24/22 09:12 Pulse 69 09/24/22 09:12 Resp 16 09/24/22 09:12 BP 146/64 H 09/24/22 09:12 Pulse Ox 96 09/24/22 09:12 O2 Del Method Room Air 09/24/22 09:12 Pertinent Lab Results Pertinent Lab Results: Laboratory Tests 09/23/22 09/23/22 09/23/22 12:02 12:02 12:02 WBC RBC Hgb Hct MCV MCH MCHC RDW Plt Count MPV Immature Gran % (Auto) Neut % (Auto) Lymph % (Auto) [place] % (Auto) Eos % (Auto) Baso % (Auto) Lymph # (Auto) [place] # (Auto) Eos # (Auto) Baso # (Auto) Abs Immat Gran (auto) Absolute Neuts (auto) Absolute Nucleated RBC Nucleated RBC % (auto) PT 10.9 INR 1.0 Sodium Potassium Chloride Carbon Dioxide Anion Gap BUN Creatinine Estim Creat Clear Calc Estimated GFR Random Glucose Calcium Magnesium Total Bilirubin Direct Bilirubin AST ALT Alkaline Phosphatase Troponin I High Sens < 2.7 B-Natriuretic Peptide 87 Total Protein Albumin Urine Color Urine Appearance Urine pH Ur Specific [place] Urine Protein Urine Glucose (UA) Urine Ketones Urine Blood Urine Nitrite Ur Leukocyte Esterase Stool Occult Blood Blood Type Antibody Screen 09/23/22 09/23/22 09/23/22 12:02 12:03 12:03 WBC 5.7 RBC 3.21 L Hgb 8.0 L Hct 26.9 L MCV 83.8 MCH 24.9 L MCHC 29.7 L RDW 18.3 H Plt Count 380 MPV 10.1 Immature Gran % (Auto) 0.4 Neut % (Auto) 68.9 Lymph % (Auto) 20.0 [place] % (Auto) 8.2 Eos % (Auto) 1.1 Baso % (Auto) 1.4 Lymph # (Auto) 1.1 L [place] # (Auto) 0.5 Eos # (Auto) 0.1 Baso # (Auto) 0.1 Abs Immat Gran (auto) 0.02 Absolute Neuts (auto) 3.9 Absolute Nucleated RBC 0.000 Nucleated RBC % (auto) 0.0 PT INR Sodium 141 Potassium 4.0 Chloride 107 Carbon Dioxide 25 Anion Gap 13 BUN 16 Creatinine 0.84 Estim Creat Clear Calc 58.1 Estimated GFR > 60 Random Glucose 108 Calcium 9.9 D Magnesium 2.0 Total Bilirubin 0.3 Direct Bilirubin 0.1 AST 22 ALT 17 Alkaline Phosphatase 61 Troponin I High Sens B-Natriuretic Peptide Total Protein 7.0 Albumin 3.9 Urine Color Urine Appearance Urine pH Ur Specific [place] Urine Protein Urine Glucose (UA) Urine Ketones Urine Blood Urine Nitrite Ur Leukocyte Esterase Stool Occult Blood Blood Type A Positive Antibody Screen NEGATIVE 09/23/22 09/23/22 09/24/22 12:29 15:55 05:33 WBC 6.1 RBC 3.23 L Hgb 8.1 L Hct 27.2 L MCV 84.2 MCH 25.1 L MCHC 29.8 L RDW 18.9 H Plt Count 374 MPV 10.2 Immature Gran % (Auto) Neut % (Auto) Lymph % (Auto) [place] % (Auto) Eos % (Auto) Baso % (Auto) Lymph # (Auto) [place] # (Auto) Eos # (Auto) Baso # (Auto) Abs Immat Gran (auto) Absolute Neuts (auto) Absolute Nucleated RBC 0.000 Nucleated RBC % (auto) 0.0 PT INR Sodium Potassium Chloride Carbon Dioxide Anion Gap BUN Creatinine Estim Creat Clear Calc Estimated GFR Random Glucose Calcium Magnesium Total Bilirubin Direct Bilirubin AST ALT Alkaline Phosphatase Troponin I High Sens B-Natriuretic Peptide Total Protein Albumin Urine Color Yellow Urine Appearance Clear Urine pH 7.0 Ur Specific [place] 1.010 Urine Protein Negative Urine Glucose (UA) Negative Urine Ketones Negative Urine Blood Negative Urine Nitrite Negative Ur Leukocyte Esterase Negative Stool Occult Blood POSITIVE Blood Type Antibody Screen Airway Mallampati Class: I Neck ROM: Full Loose/Missing/Broken Teeth: No Heart: rr Lungs: cta Assessment and Plan Assessment Anesthesia Assessment: Anesthesia Plan Discussed and Chart Reviewed Final Anesthetic Review Family History of Problems with Anesthesia: No History of Problems with Anesthesia: No NPO: Yes ASA Class: V and Emergency Final Preanesthetic Review: No Changes in Pt Med Stat, Meds/Allgs Chart Reviewed, Consent Obtained/Reviewed and Anes Risks/Benef Reviewed Patient Risk: High Procedure Risk: Intermediate Anesthetic Plan Anesthetic Plan: MAC: Disposition: Standard PACU
--- NOTE | 2022-09-24 11:55 | MHC.CM.PN ---
PATIENT LIVES WITH SPOUSE/HCP COPY REQUESTED FOR NEXT VISIT TO [facility]. NO DME OR VNA SERVICES PCP DR RODNEY PATIENT IS DC TODAY SHE IS AWARE OF HER RIGHT TO APPEAL AND DOES NOT WISH TO IMM 09/24 IN CHART
== END 2022-09-24 12:21 | disposition home or self-care (01) | DRG 379 ==
LOC: HO.ED 13:43 → HO.EDOVER 15:47 → HO.S3 15:58
PROVIDERS: Internal Medicine Gastroenterology; Nurse Practitioner Family; Admitting Provider Student in an Organized Health Care Education/Training Program; Emergency Provider Emergency Medicine; PCP Internal Medicine; Visit Provider Student in an Organized Health Care Education/Training Program
PROC: 0DB78ZX Excision of Stomach, Pylorus, Via Natural or Artificial Opening Endoscopic, Diagnostic (ICD-10-PCS; principal; 2022-09-24 08:30)
DX: K25.4 Chronic or unspecified gastric ulcer with hemorrhage (principal); K44.9 Diaphragmatic hernia without obstruction or gangrene; D50.0 Iron deficiency anemia secondary to blood loss (chronic); T39.315A Adverse effect of propionic acid derivatives, initial encounter; Z87.891 Personal history of nicotine dependence; Z79.899 Other long term (current) drug therapy
CPT/HCPCS: 36415; 71046; 80048; 80076; 81003; 82272; 83735; 83880; 84484; 85025; 85027; 85610; 86850; 86900; 86901; 88305; 88342; 93005; 99285; J1200; J2250

== ENCOUNTER 2022-10-01 13:39 | Outpatient (REF) | payer MEDICARE, SELFPAY ==
[2022-10-01 16:40] LABS: Hematocrit 31.2 % (37.0-47.0); Hemoglobin 9.2 g/dl (12.0-16.0); Mean Corpuscular HGB Conc 29.5 g/dl (31.0-35.0); Mean Corpuscular Hemoglobin 25.7 pg (27.0-33.0); Mean Corpuscular Volume 87.2 fL (80.0-98.0); Mean Platelet Volume 10.8 fL (9.4-12.3); Platelet Count 461 X10*3/uL (160-400); Red Blood Count 3.58 X10*6/uL (4.20-5.50); Red Cell Distribution Width 21.7 % (11.0-16.0); White Blood Count 5.8 X10*3/uL (4.8-10.8)
== END 2022-10-01 13:40 | disposition home or self-care (01) ==
LOC: HO.HMGCLDS 13:39
PROVIDERS: PCP Internal Medicine; Visit Provider Student in an Organized Health Care Education/Training Program
DX: D64.9 Anemia, unspecified (principal)
CPT/HCPCS: 36415; 85027

== ENCOUNTER 2022-10-02 15:15 | Outpatient (REF) | payer MEDICARE, SELFPAY ==
[2022-10-02 18:14] LABS: Free T4 (Free Thyroxine) 0.89 ng/dL (0.71-1.85); Thyroid Stimulating Hormone 1.01 uIU/mL (0.32-4.0)
[2022-10-05 13:08] LABS: Thyroid Peroxidase Antibodies <1 IU/mL (<9)
[2022-10-08 01:24] LABS: Smooth Muscle Antibody <20 U (<20)
[2022-10-09 18:14] LABS: Acetylcholine Receptor Binding <0.30 nmol/L
[2022-10-13 17:03] LABS: Plasma Renin Activity 0.25 ng/mL/h (0.25-5.82)
== END 2022-10-02 15:16 | disposition home or self-care (01) ==
LOC: HO.HMGCLDS 15:15
PROVIDERS: PCP Internal Medicine; Visit Provider Internal Medicine
DX: R53.1 Weakness (principal); D64.9 Anemia, unspecified
CPT/HCPCS: 36415; 82088; 83519; 84439; 84443; 86015; 86376

== ENCOUNTER 2022-10-20 14:13 | Outpatient (AMB) | payer MEDICARE, SELFPAY ==
--- NOTE | 2022-10-20 14:14 | A.OFFVIS_ITS ---
Intake Vital Signs 10/20/22 14:15 Height 5 ft 4 in Weight 161 lb BMI 27.6 BP 164/90 H Blood Pressure Location Rt brachial Position Sitting Pulse 87 Pulse Source Pulse Oximeter Pulse Oximetry (%) 98 Oxygen Delivery Method Room Air Intake Visit Reasons: HEALTHCARE REPRESENTATIVE-Myasthenia gravis-confirmed Intake Note: patient is here as a new patient to establish care for Myasthenia Gravis. Organ Builder Required: No Accompanied by: Self / Same As Patient Allergies ciprofloxacin [Cipro] Allergy (Intermediate, Verified 10/20/22 14:15) Itching Biaxin Allergy (Severe, Uncoded 02/18/21 06:15) Dizziness Medication List - Last Reconciled 10/20/22 by Haritha Green MD acetaminophen 650 mg (2 x 325 mg) PO Q6H PRN 30 days calcium carbonate-vitamin D2 600 mg calcium- 200 unit 1 tab PO DAILY ferrous sulfate 324 mg PO DAILY multivitamin 1 tab PO DAILY omeprazole 40 mg PO DAILY HPI HPI Comments History of Present Illness Details 77y/o female is referred here for evaluation of possible myasthenia.she reports droopy eyelids for 4 years now. It fluctuates and worsens in the evenings. its worse in her right eye.she also has double vision worsens when she is fatigued. she denies speehc difficulty or any problems withs wallowing she also has lumbar spondylosis and has gait issues related to that. she uses a walker and had some falls. she has a diagnosis of peripheral neuropathy. [facility] Medical History (Updated 10/20/22 @ 15:26 by Haritha Green MD) Anemia Arthritis of left knee Cervical spondylosis Cervicalgia GERD (gastroesophageal reflux disease) Hayfever Lumbar disc disease Osteoarthritis Ptosis Stress incontinence Surgical History History of cataract extraction History of total left knee replacement (TKR) (02/18/21) Hx of appendectomy Hx of tonsillectomy S/P D&C (status post dilation and curettage) Family History Mother Pancreatic cancer Ovarian cancer Father Heart attack Pancreatic cancer Social History Household Members: Spouse Household Members Other:: 3 Housing: House Are you a primary zoo caretaker to a significant other at home: No Do you presently have visiting nurse or other home services: No Alcohol intake: never Patient Tobacco Use Status: Former Tobacco user Quit Date: Tobacco use type: Cigarette Second Hand Smoke Exposure: No service: No Current occupational status: retired Current occupation: rt handed Review of Systems Const Reports fatigue, Reports malaise and Reports weakness Eyes Reports blurry vision Card Reports dyspnea Resp Reports cough and Reports dyspnea Musc Reports back pain and Reports arthralgias Neuro Reports memory loss and Reports weakness Psych Reports anxiety and Reports memory loss Endo Reports fatigue Physical Exam Vital Signs: Last Vital Signs Pulse 87 10/20/22 14:15 BP 164/90 H 10/20/22 14:15 Pulse Ox 98 10/20/22 14:15 Oxygen Delivery Method Room Air 10/20/22 14:15 BMI result Body Mass Index 27.6 Const General: cooperative; No comfortable Nutritional Appearance: overweight Orientation/consciousness: patient oriented x3 Eyes Pupils: Equal, round and reactive pupils present Neuro Other: ptosis bilateral- no upgaze kyphosis - slow using walker General: patient oriented x3, tone normal and moves all extremities Cranial nerves: Yes Equal, round and reactive pupils present, Yes Nystagmus not present, Yes Normal facial strength present and Yes Midline tongue present Cognition (Neuro): normal cognition Gait exam (Neuro): Antalgic gait present Motor exam (neuro): 5/5 motor strength present throughout and Normal motor muscle tone present throughout Deep tendon reflexes (DTR's): Right triceps reflex intensity grade: 3+, Left triceps reflex intensity grade: 3+, Rt Biceps (C5, C6): 3+, Left biceps reflex intensity grade: 3+, Right brachioradialis reflex intensity grade: 3+, Left brachioradialis reflex intensity grade: 3+, Right patellar reflex intensity grade: 2+ and Left patellar reflex intensity grade: 2+ Coordination: [id number] test normal Assessment & Plan Assessment & Plan (1) Ptosis: Code(s): H02.409 - Unspecified ptosis of unspecified eyelid (2) Cervicalgia: Code(s): M54.2 - Cervicalgia Plan Anti MUSK antibody I will trial her on Pyridostigmine 60mg bid C spine X ray f/u Relief Cook Orders: Orders Other Ref Test - Misc Today H02.409 - Unspecified ptosis of unspecified eyelid XR cervical spine 3V Today M47.812 - Spondylosis without myelopathy or ra diculopathy, cervical region Medications: New pyridostigmine bromide (Mestinon) 60 mg PO BID 60 tabs 3RF Coding Level of Care Code New Pt Level 4 (14640) Diagnoses Ptosis H02.409 Cervicalgia M54.2
[2022-10-20 14:15] VITALS: BP 164/90; PULSE 87; O2SAT 98; BMI 27.6
== END 2022-10-20 15:03 | disposition home or self-care (01) ==
PROVIDERS: Visit Provider Psychiatry & Neurology Neurology
DX: H02.409 Unspecified ptosis of unspecified eyelid (principal); M54.2 Cervicalgia
CPT/HCPCS: 99204

== ENCOUNTER → 2022-10-20 14:13 | Outpatient (BNVA) | payer MEDICARE, SELFPAY | PROVIDERS: Visit Provider Psychiatry & Neurology Neurology | DX: M54.2 Cervicalgia (principal); H02.409 Unspecified ptosis of unspecified eyelid | CPT/HCPCS: 99202 ==

== ENCOUNTER 2022-10-23 13:44 | Outpatient (REF) | payer MEDICARE, SELFPAY ==
--- NOTE | ~2022-10-23 | XR_ITS ---
EXAMINATION: XR CERVICAL SPINE CLINICAL INFORMATION: Spondylosis. COMPARISON: None available. TECHNIQUE: 3 views of the cervical spine were obtained. FINDINGS: No evidence of acute compression deformity or subluxation. The atlantooccipital and atlantoaxial articulations are maintained. Well-corticated osseous fragment along the anterosuperior aspect of the C5 vertebral body, favoring to represent sequela of an injury or congenital/degenerative variation. Moderate multilevel disc degeneration and uncovertebral hypertrophy. Evaluation of central canal stenosis and neural foraminal encroachment is limited in the absence of oblique views. No prevertebral soft tissue thickening. Lung apices are clear. Calcifications in the region of the left carotid bulb. XR/XR cervical spine 3V IMPRESSION: 1. No acute compression deformity or subluxation. 2. Moderate cervical spondylosis. If indicated, further evaluation with an MR of the cervical spine could be obtained.
== END 2022-10-23 13:45 | disposition home or self-care (01) ==
LOC: HO.LAB 13:44
PROVIDERS: Visit Provider Psychiatry & Neurology Neurology
DX: H02.409 Unspecified ptosis of unspecified eyelid (principal); M47.812 Spondylosis without myelopathy or radiculopathy, cervical region
CPT/HCPCS: 72040; 83519

== ENCOUNTER 2022-11-19 14:15 | Emergency (ER) | payer MEDICARE, SELFPAY ==
--- NOTE | ~2022-11-19 | US_ITS ---
EXAMINATION: US VENOUS ULTRASOUND WITH DOPPLER LOWER EXTREMITY, RIGHT CLINICAL INFORMATION: Right lower extremity pain, swelling and edema COMPARISON: Prior ultrasound of the right leg dated 09/11/2022 TECHNIQUE: Ultrasound of the deep veins is performed from the hip to the calf with compression sonography and color and pulse Doppler assessment. Spectral analysis with color-flow imaging is performed. FINDINGS: There is normal venous compression and respiratory variation and augmented flow. The visualized common femoral vein, superficial femoral vein, profunda femoral vein, popliteal vein, and the trifurcation region shows no evidence of deep venous thrombosis. There is no significant popliteal fossa cyst. If the patient's symptoms persist, followup ultrasound in 5 days 7 days might be of value to exclude proximal propagation from a non-visualized calf vein. US/US venous duplex LE RT IMPRESSION: No DVT demonstrated in the right lower extremity.
--- NOTE | ~2022-11-19 | XR_ITS ---
EXAMINATION: XR TIBIA AND FIBULA, RIGHT CLINICAL INFORMATION: Right leg pain and swelling. COMPARISON: None available. TECHNIQUE: AP and lateral views of the right tibia and fibula were obtained. FINDINGS: The tibia and fibula are intact. There is no acute fracture or dislocation. Mild to moderate degenerative changes are seen in the right knee most pronounced in the medial femoral-tibial compartment. Mild right ankle degenerative joint changes are seen. There is mild soft tissue swelling. XR/XR tibia fibula RT 2V IMPRESSION: 1. Mild soft tissue swelling without acute underlying osseous abnormality. 2. Mild to moderate right knee and mild right ankle degenerative joint changes.
[2022-11-19 14:49] VITALS: BP 161/84; PULSE 75; RESP 17; TEMP 36.6; O2SAT 100; BMI 28.7
--- NOTE | 2022-11-19 14:52 | ED.LOWEXIN ---
HPI - Extremity Injury (Lower) General Chief Complaint: Extremity Problem Stated Complaint: R leg pain Time Seen by Provider: 11/19/22 17:26 Source: patient Mode of arrival: ambulatory Limitations: no limitations History of Present Illness HPI Narrative: 77-year-old female history of left-sided knee replacement, presenting to the emergency department for evaluation of right lower extremity pain, swelling, redness, reports it has been present since Wednesday. She states that is been progressively worsening. She was told to come into the emergency department to rule out a blood clot. Patient not on anticoagulants. Denies trauma. Denies fevers, chills, numbness, tingling, headache, vision changes, chest pain, shortness of rehan Related Data Home Medications Medication Instructions Recorded Confirmed calcium carb-ergocalciferol (vit 1 tab PO DAILY 09/23/22 10/20/22 D2) 600 mg calcium-200 unit tablet multivitamin 1 tab PO DAILY 09/23/22 10/20/22 Previous Rx's Medication Instructions Recorded acetaminophen 325 mg tablet 650 mg PO Q6H PRN Pain, Mild (Pain 02/20/21 Scale 1-3) 30 days #240 tabs ferrous sulfate 324 mg (65 mg 324 mg PO DAILY #90 tabs 09/24/22 iron) tablet,delayed release omeprazole 40 mg capsule,delayed 40 mg PO DAILY #90 caps 09/24/22 release pyridostigmine bromide 60 mg 60 mg PO BID #60 tabs 10/20/22 tablet (Mestinon) cephalexin 500 mg tablet 500 mg PO Q6H 7 days #28 tabs 11/19/22 naproxen 500 mg tablet 500 mg PO BID #14 tabs 11/19/22 prednisone 20 mg tablet 40 mg PO DAILY 5 days #10 tabs 11/19/22 Allergies Allergy/AdvReac Type Severity Reaction Status Date / Time ciprofloxacin [Cipro] Allergy Intermediate Itching Verified 10/20/22 14:15 Biaxin Allergy Severe Dizziness Uncoded 02/18/21 06:15 Review of Systems Review of Systems: Constitutional : No Weight loss, No Fever, No Chills, No Fatigue, No Malaise ENT/Mouth : No sore throat, No Rhinorrhea Eyes: No Eye Pain, No Swelling, No Redness Cardiovascular : No Chest Pain, No SOB, No Dyspnea on Exertion, No Orthopnea, + Edema, No Palpitations Respiratory : No Cough, No Sputum, No Wheezing Gastrointestinal : No Nausea, No Vomiting, No Diarrhea, No Constipation, No abdominal Pain, No Hematochezia, No Melena Genitourinary : No Dysuria, No Urinary Frequency, No Hematuria, Musculoskeletal : No joint pain, No Myalgias, No Joint Swelling Skin : No Skin Lesions, No rash Neuro : No Weakness, No Numbness, No Dizziness, No Headache Psych : No Anxiety/Panic, No Depression All other systems reviewed and are negative Yes all other systems are reviewed and are negative [facility] Past Medical History Attestation statement: The following information was validated with the patient. Source: old records reviewed and nursing notes reviewed Medical History Anemia Arthritis of left knee Cervical spondylosis Cervicalgia GERD (gastroesophageal reflux disease) Hayfever Lumbar disc disease Osteoarthritis Ptosis Stress incontinence Surgical History History of cataract extraction History of total left knee replacement (TKR) (02/18/21) Hx of appendectomy Hx of tonsillectomy S/P D&C (status post dilation and curettage) Family History Family History Mother Pancreatic cancer Ovarian cancer Father Heart attack Pancreatic cancer Social History Social History Household Members: Spouse Household Members Other:: 3 Housing: House Are you a primary customer care representative to a significant other at home: No Do you presently have visiting nurse or other home services: No Alcohol intake: never Patient Tobacco Use Status: Former Tobacco user Quit Date: Tobacco use type: Cigarette Second Hand Smoke Exposure: No Advance Directives: No Advance Directives Information Provided: Yes service: No Current occupational status: retired Current occupation: rt handed Physical Exam Vital Signs: Vital Signs: Last Vital Signs Temp 97.9 F 11/19/22 14:49 Pulse 75 11/19/22 14:49 Resp 17 11/19/22 14:49 BP 161/84 H 11/19/22 14:49 Pulse Ox 100 11/19/22 14:49 O2 Del Method Room Air 11/19/22 14:49 BMI result Body Mass Index 28.7 vss Appearance: Alert.? Oriented X3.? No acute distress.? Head: Normocephalic, atraumatic, no step-offs or deformities Eyes: Pupils equal, round and reactive to light.? CVS: Normal heart rate and rhythm.? Pulses normal.? Respiratory: No respiratory distress.? Breath sounds normal.? Abdomen: Soft and nontender.? Skin: Skin warm and dry.? Normal skin color.? Normal skin turgor.? Extremities: No edema to the left lower extremity, 1+ nonpitting edema from the knee down to the right lower extremity. There is associated right anterior calf erythema, warmth consistent with cellulitis..? No calf ttp. 5/5 strength to bilateral upper and lower extremities . 2+ dorsalis pedis, anterior tibialis , posterior tibialis pulses equal bilateral. no footdrop bilaterally. Normal sensation distally. Capillary refill less than 2 seconds to bilateral lower extremity digits. Back: No midline tenderness, no C-spine tenderness, full range of motion, no CVA tenderness bilaterally Neuro: Oriented X 3.? No motor deficit.? No sensory deficit. CN 2-12 intact Course Course Course Narrative: RME: 77yo F w/PMHx gastric ulcer c/o RLE pain and swelling since Wednesday. Admits to previous injury to R leg months ago. denies recent injury/fall, SOB, calf pain RLE w/pitting edema. faint erythema, no calf ttp. NV intact Patient requesting XR, US and Labs also ordered Full HPI, ROS and PE to be performed by primary ED provider. Reevaluation(s) Reevaluation #1: tib-fib x-ray with mild to moderate right knee in mild right ankle degenerative joint changes, mild soft tissue swelling without acute underlying osseous abnormality. No signs of osteomyelitis. DVT study negative. Recommend repeat study in a few days if symptoms persist however swelling is likely secondary to cellulitis. Patient to be discharged home on Keflex. Educated patient on diagnosis and treatment plan, answered all question, patient verbalizes understanding. At this time patient will be discharged home, advised to return with new or worsening symptoms. Educated on worrisome signs and symptoms and when to return. At this time I feel comfortable discharge home. Time: 18:01 Medical Decision Making Medical Decision Making MDM Narrative: 77-year-old female presents with right lower extremity swelling, redness, warmth of the past few days worsening. Physical exam significant for No edema to the left lower extremity, 1+ nonpitting edema from the knee down to the right lower extremity. There is associated right anterior calf erythema, warmth consistent with cellulitis..? No calf ttp. 5/5 strength to bilateral upper and lower extremities . 2+ dorsalis pedis, anterior tibialis , posterior tibialis pulses equal bilateral. no footdrop bilaterally. Normal sensation distally. Capillary refill less than 2 seconds to bilateral lower extremity digits. this is likely cellulitis and possible inflammatory arthritis. Unlikely DVT, arterial occlusion, neurovascular compromise, septic joint, threat to Baugh. No signs of necrotizing infection. Patient had an x-ray as well as an ultrasound ordered from triage will follow-up on these imaging Differential Diagnosis Differential Diagnoses: The differential diagnosis associated with the presentation includes this is likely cellulitis and possible inflammatory arthritis. Unlikely DVT, arterial occlusion, neurovascular compromise, septic joint, threat to B[place]. No signs of necrotizing infection. Admission/Observation Consideration of admission/observation: Escalation of care including admission/observation considered unlikely Lab Data 11/19/22 15:43 11/19/22 15:43 Labs: Lab Results 11/19/22 11/19/22 11/19/22 Range/Units 15:43 15:43 15:43 WBC 6.7 (4.8-10.8) X10*3/uL RBC 4.37 D (4.20-5.50) X10*6/uL Hgb 11.5 L D (12.0-16.0) g/dl Hct 37.3 (37.0-47.0) % MCV 85.4 (80.0-98.0) fL MCH 26.3 L (27.0-33.0) pg MCHC 30.8 L (31.0-35.0) g/dl RDW 21.4 H (11.0-16.0) % Plt Count 303 D (160-400) X10*3/uL MPV 9.9 (9.4-12.3) fL Immature Gran % (Auto) 0.3 (0.0-0.4) % Neut % (Auto) 70.2 (45-73) % Lymph % (Auto) 20.3 (20-40) % [place] % (Auto) 7.6 (2-11) % Eos % (Auto) 0.6 (0-4) % Baso % (Auto) 1.0 (0-2) % Lymph # (Auto) 1.4 (1.2-4.9) X10*3/uL [place] # (Auto) 0.5 (0.1-1.2) X10*3/uL Eos # (Auto) 0.0 (0.0-0.4) X10*3/uL Baso # (Auto) 0.1 (0.0-0.2) X10*3/uL Abs Immat Gran (auto) 0.02 (0.00-0.03) X10*3/uL Absolute Neuts (auto) 4.7 (2.0-8.3) x10*3/uL Absolute Nucleated RBC 0.000 (0.0-0.012) X10*3/uL Nucleated RBC % (auto) 0.0 (0.0-0.2) /100WBC PT 11.1 (11.1-13.3) SEC INR 0.9 (0.9-1.1) Sodium 140 (135-145) mmol/L Potassium 4.5 (3.3-5.1) mmol/L Chloride 109 H (96-108) mmol/L Carbon Dioxide 23 (22-29) mmol/L Anion Gap 13 (12-20) BUN 15 (9-16) mg/dL Creatinine 0.98 (0.5-1.4) mg/dL Estim Creat Clear Calc 45.1 Estimated GFR 55 Random Glucose 144 H (60-115) mg/dL Calcium 9.5 (8.4-10.2) mg/dL B-Natriuretic Peptide (<100) pg/mL 11/19/22 Range/Units 15:43 WBC (4.8-10.8) X10*3/uL RBC (4.20-5.50) X10*6/uL Hgb (12.0-16.0) g/dl Hct (37.0-47.0) % MCV (80.0-98.0) fL MCH (27.0-33.0) pg MCHC (31.0-35.0) g/dl RDW (11.0-16.0) % Plt Count (160-400) X10*3/uL MPV (9.4-12.3) fL Immature Gran % (Auto) (0.0-0.4) % Neut % (Auto) (45-73) % Lymph % (Auto) (20-40) % [place] % (Auto) (2-11) % Eos % (Auto) (0-4) % Baso % (Auto) (0-2) % Lymph # (Auto) (1.2-4.9) X10*3/uL [place] # (Auto) (0.1-1.2) X10*3/uL Eos # (Auto) (0.0-0.4) X10*3/uL Baso # (Auto) (0.0-0.2) X10*3/uL Abs Immat Gran (auto) (0.00-0.03) X10*3/uL Absolute Neuts (auto) (2.0-8.3) x10*3/uL Absolute Nucleated RBC (0.0-0.012) X10*3/uL Nucleated RBC % (auto) (0.0-0.2) /100WBC PT (11.1-13.3) SEC INR (0.9-1.1) Sodium (135-145) mmol/L Potassium (3.3-5.1) mmol/L Chloride (96-108) mmol/L Carbon Dioxide (22-29) mmol/L Anion Gap (12-20) BUN (9-16) mg/dL Creatinine (0.5-1.4) mg/dL Estim Creat Clear Calc Estimated GFR Random Glucose (60-115) mg/dL Calcium (8.4-10.2) mg/dL B-Natriuretic Peptide 63 (<100) pg/mL Independent Interpretation I performed an independent interpretation of an: Plain X-Ray (XR/XR tibia fibula RT 2V IMPRESSION: 1. Mild soft tissue swelling without acute underlying osseous abnormality. 2. Mild to moderate right knee and mild right ankle degenerative joint changes. ) and Ultrasound (FINDINGS: There is normal venous compression and respiratory variation and augmented flow. The visualized common femoral vein, superficial femoral vein, profunda femoral vein, popliteal vein, and the trifurcation region shows no evidence of deep venous thrombosis. There is no significant popliteal) Radiology Impression Discussion of test interpretation with radiology: I have reviewed the radiologist's reading. Core Measures AMI core measures followed: Yes Measure exclusions: not indicated Discharge Plan Discharge Clinical Impression: Inflammatory arthritis, Cellulitis Patient Disposition: Home, Self-Care Instructions: Swollen Joint (ED) Additional Instructions: Take your medications as prescribed. If you were prescribed antibiotics today, it is important that you take your medication to their entirety, do not skip any doses, do not finish them early. Follow-up with your primary care provider this week. Return to the emergency department with new or worsening symptoms. Such as fevers, chills, chest pain, shortness of breath, nausea, vomiting, dizziness, headache, vision changes, lethargy In case of emergency call 911 US/US venous duplex LE RT FINDINGS: There is normal venous compression and respiratory variation and augmented flow. The visualized common femoral vein, superficial femoral vein, profunda femoral vein, popliteal vein, and the trifurcation region shows no evidence of deep venous thrombosis. ? There is no significant popliteal fossa cyst. If the patient's symptoms persist, followup ultrasound in 5 days 7 days might be of value to exclude proximal propagation from a non-visualized calf vein. IMPRESSION: No DVT demonstrated in the right lower extremity. XR/XR tibia fibula RT 2V IMPRESSION: 1.? Mild soft tissue swelling without acute underlying osseous abnormality. 2.? Mild to moderate right knee and mild right ankle degenerative joint changes. ? Prescriptions: New prednisone 20 mg tablet 40 mg PO DAILY 5 Days Qty: 10 0RF naproxen 500 mg tablet 500 mg PO BID Qty: 14 0RF cephalexin 500 mg tablet 500 mg PO Q6H 7 Days Qty: 28 0RF No Action acetaminophen 325 mg Tablet 650 mg PO Q6H PRN (Reason: Pain, Mild (Pain Scale 1-3)) 30 Days Qty: 240 0RF multivitamin Tablet 1 tab PO DAILY calcium carbonate-vitamin D2 600 mg calcium- 200 unit Tablet 1 tab PO DAILY omeprazole 40 mg capsule,delayed release(DR/EC) 40 mg PO DAILY Qty: 90 2RF ferrous sulfate 324 mg (65 mg iron) tablet,delayed release (DR/EC) 324 mg PO DAILY Qty: 90 0RF pyridostigmine bromide [Mestinon] 60 mg tablet 60 mg PO BID Qty: 60 3RF Referrals: Andry Mendoza MD [Primary Care Provider] - 2 days Stand Alone Forms: Work/School Release
[2022-11-19 15:48] LABS: MANUAL DIFF FLAG NO
[2022-11-19 15:55] LABS: Basophils Absolute Auto 0.1 X10*3/uL (0.0-0.2); Eosinophils Percent Auto 0.6 % (0-4); Hematocrit 37.3 % (37.0-47.0); Hemoglobin 11.5 g/dl (12.0-16.0); Imm Gran Abs Auto 0.02 X10*3/uL (0.00-0.03); Imm Gran Pct Auto 0.3 % (0.0-0.4); Lymphocytes Absolute Auto 1.4 X10*3/uL (1.2-4.9); Lymphocytes Percent Auto 20.3 % (20-40); Mean Corpuscular HGB Conc 30.8 g/dl (31.0-35.0); Mean Corpuscular Hemoglobin 26.3 pg (27.0-33.0); Mean Corpuscular Volume 85.4 fL (80.0-98.0); Mean Platelet Volume 9.9 fL (9.4-12.3); Monocytes Absolute Auto 0.5 X10*3/uL (0.1-1.2); Monocytes Percent Auto 7.6 % (2-11); Neutrophils Absolute Auto 4.7 x10*3/uL (2.0-8.3); Neutrophils Percent Auto 70.2 % (45-73); Platelet Count 303 X10*3/uL (160-400); Red Blood Count 4.37 X10*6/uL (4.20-5.50); Red Cell Distribution Width 21.4 % (11.0-16.0); White Blood Count 6.7 X10*3/uL (4.8-10.8)
[2022-11-19 15:56] LABS: INTERNATIONAL NORM RATIO 0.9 (0.9-1.1); Prothrombin Time 11.1 SEC (11.1-13.3)
[2022-11-19 16:14] LABS: Anion Gap 13 (12-20); Blood Urea Nitrogen 15 mg/dL (9-16); Calcium 9.5 mg/dL (8.4-10.2); Carbon Dioxide 23 mmol/L (22-29); Chloride 109 mmol/L (96-108); Creatinine Clr Calc Pharmacy 45.1; Estimated Glomerular Filt Rate 55; Glucose Random 144 mg/dL (60-115); Potassium 4.5 mmol/L (3.3-5.1); Sodium 140 mmol/L (135-145)
[2022-11-19 16:21] LABS: B Type Natriuretic Peptide 63 pg/mL (<100)
== END 2022-11-19 18:12 | disposition home or self-care (01) ==
PROVIDERS: Physician Assistant; Emergency Provider Emergency Medicine; PCP Internal Medicine
DX: L03.115 Cellulitis of right lower limb (principal); M17.11 Unilateral primary osteoarthritis, right knee; M79.604 Pain in right leg; R60.0 Localized edema; Z87.891 Personal history of nicotine dependence
CPT/HCPCS: 36415; 73590; 80048; 83880; 85025; 85610; 93971; 99282; 99284

== ENCOUNTER 2022-12-02 14:18 | Outpatient (REF) | payer MEDICARE, SELFPAY ==
--- NOTE | ~2022-12-02 | XR_ITS ---
EXAMINATION: XR LUMBOSACRAL SPINE CLINICAL INFORMATION: Right leg pain and swelling back pain COMPARISON: Lumbar spine radiograph from 07/30/2014 TECHNIQUE: Three views of the lumbosacral spine. FINDINGS: 5 nonrib-bearing lumbar-type vertebral bodies. Prominent levocurvature with lateral listhesis of L1 on L2 and L2 on L3 and L3 on L4. Moderate to severe multilevel degenerative changes with disc space narrowing, endplate sclerosis, vacuum disc phenomenon, osteophyte formation, and facet arthropathy. Vertebral body heights and disc spaces are otherwise maintained. Posterior elements are intact. Paraspinal soft tissues are unremarkable. Atherosclerotic calcifications of the abdominal aorta. Bowel gas is unremarkable XR/XR lumbar spine 2-3V IMPRESSION: 1. No acute visible fracture. 2. Prominent levocurvature with lateral listhesis of L1 on L2 and L2 on L3 and L3 on L4. 3. Moderate to severe multilevel degenerative changes.
[2022-12-02 14:36] LABS: MANUAL DIFF FLAG NO
[2022-12-02 15:00] LABS: Basophils Absolute Auto 0.1 X10*3/uL (0.0-0.2); Basophils Percent Auto 0.8 % (0-2); Eosinophils Absolute Auto 0.1 X10*3/uL (0.0-0.4); Eosinophils Percent Auto 1.3 % (0-4); Hematocrit 38.5 % (37.0-47.0); Hemoglobin 11.8 g/dl (12.0-16.0); Imm Gran Abs Auto 0.01 X10*3/uL (0.00-0.03); Imm Gran Pct Auto 0.2 % (0.0-0.4); Lymphocytes Absolute Auto 1.5 X10*3/uL (1.2-4.9); Lymphocytes Percent Auto 25.3 % (20-40); Mean Corpuscular HGB Conc 30.6 g/dl (31.0-35.0); Mean Corpuscular Hemoglobin 26.5 pg (27.0-33.0); Mean Corpuscular Volume 86.3 fL (80.0-98.0); Mean Platelet Volume 10.5 fL (9.4-12.3); Monocytes Absolute Auto 0.5 X10*3/uL (0.1-1.2); Monocytes Percent Auto 7.7 % (2-11); Neutrophils Absolute Auto 3.9 x10*3/uL (2.0-8.3); Neutrophils Percent Auto 64.7 % (45-73); Platelet Count 332 X10*3/uL (160-400); Red Blood Count 4.46 X10*6/uL (4.20-5.50); Red Cell Distribution Width 20.7 % (11.0-16.0)
[2022-12-02 15:36] LABS: Erythrocyte Sedimentation Rate 23 MM/HR (0-20)
[2022-12-02 15:39] LABS: Anion Gap 11 (12-20); Blood Urea Nitrogen 11 mg/dL (9-16); C Reactive Protein 2.51 mg/dL (< or = 0.50); Calcium 9.9 mg/dL (8.4-10.2); Carbon Dioxide 28 mmol/L (22-29); Chloride 107 mmol/L (96-108); Estimated Glomerular Filt Rate > 60; Glucose Random 118 mg/dL (60-115); Sodium 142 mmol/L (135-145); Uric Acid 5.4 mg/dL (2.4-5.7)
== END 2022-12-02 14:19 | disposition home or self-care (01) ==
LOC: HO.LAB 14:18
PROVIDERS: PCP Internal Medicine; Visit Provider Internal Medicine
DX: M54.50 Low back pain, unspecified (principal); R60.0 Localized edema; M79.604 Pain in right leg
CPT/HCPCS: 36415; 72100; 80048; 84550; 85025; 85652; 86140

== ENCOUNTER 2022-12-21 13:41 | Outpatient (REF) | payer MEDICARE, SELFPAY ==
--- NOTE | ~2022-12-21 | MM_ITS ---
EXAMINATION: MM SCREENING DIGITAL BREAST TOMOSYNTHESIS, BILATERAL CLINICAL INFORMATION: Screening. Asymptomatic. COMPARISON: Mammography: 12/15/2021, 12/12/2020, 12/07/2019, 12/01/2018 TECHNIQUE: Digital breast tomosynthesis is performed in both the craniocaudal and mediolateral oblique views along with computer-aided detection (CAD). Synthesized 2D images are generated from the tomosynthesis. FINDINGS: There are scattered areas of fibroglandular density (ACR BI-RADS breast composition Category b). The left breast has 2 small stable oval asymmetries anterior breast, better visualized on CC view. These are stable and benign. There are no suspicious masses, suspicious grouped calcifications, or areas of architectural distortion in either breast. The parenchymal pattern is stable from prior exams. MM/MM tomosynthesis screening BI IMPRESSION: No mammographic evidence of malignancy. Stable benign findings. ASSESSMENT: BI-RADS BI-RADS 2 - Benign Findings RECOMMENDATION: Routine annual mammography screening. 1 year F/U This examination should not preclude the clinical evaluation of a suspicious palpable abnormality. This patient's information was entered into a reminder system with a target due date for their next mammogram.
== END 2022-12-21 13:42 | disposition home or self-care (01) ==
LOC: HO.MAMMO 13:41
PROVIDERS: PCP Internal Medicine; Visit Provider Internal Medicine
DX: Z12.31 Encounter for screening mammogram for malignant neoplasm of breast (principal)
CPT/HCPCS: 77063; 77067

== ENCOUNTER → 2022-12-21 14:00 | Outpatient (BNV) | payer MEDICARE, SELFPAY | PROVIDERS: PCP Internal Medicine; Visit Provider Radiology Diagnostic Radiology | DX: Z12.31 Encounter for screening mammogram for malignant neoplasm of breast (principal) | CPT/HCPCS: 77063; 77067 ==

== ENCOUNTER 2022-12-22 14:28 | Outpatient (AMB) | payer MEDICARE, SELFPAY ==
--- NOTE | 2022-12-22 14:31 | A.OFFVIS_ITS ---
Intake Vital Signs 12/22/22 14:33 Height 5 ft 3 in Weight 156 lb 2 oz BMI 27.7 BP 144/90 H Pulse 86 Pulse Source Pulse Oximeter Pulse Oximetry (%) 97 Oxygen Delivery Method Room Air Intake Visit Reasons: 2m follow up Myasthenia gravis-confirmed Intake Note: Pt presents today in fup Allergies ciprofloxacin [Cipro] Allergy (Intermediate, Verified 12/22/22 14:36) Itching Biaxin Allergy (Severe, Uncoded 02/18/21 06:15) Dizziness Medication List - Last Reconciled 12/22/22 by aHritha Green MD acetaminophen 650 mg (2 x 325 mg) PO Q6H PRN 30 days [id number] C-E-herbal 1,250 mcg-50 mg -67.5 mg-15 mg tabs PO calcium carbonate-vitamin D2 600 mg calcium- 200 unit 1 tab PO DAILY ferrous sulfate 324 mg PO DAILY multivitamin 1 tab PO DAILY omeprazole 40 mg PO DAILY pyridostigmine bromide (Mestinon) 60 mg PO BID HPI HPI Comments History of Present Illness Details 77y/o female is referred here for follow up of seronegative ocular myasthenia.she noticed improvement with pyridostigmine. she reports droopy eyelids for 4 years now. It fluctuates and worsens in the evenings. its worse in her right eye.she also has double vision worsens when she is fatigued. she denies speech difficulty or any problems with swallowing she also has lumbar spondylosis and has gait issues related to that. she uses a walker and had some falls. she has a diagnosis of peripheral neuropathy. [facility] Medical History (Updated 12/22/22 @ 14:55 by Haritha Green MD) Diplopia Ocular myasthenia gravis Cervicalgia Cervical spondylosis Ptosis Anemia Stress incontinence Hayfever Osteoarthritis Lumbar disc disease GERD (gastroesophageal reflux disease) Arthritis of left knee Surgical History S/P D&C (status post dilation and curettage) History of total left knee replacement (TKR) (02/18/21) History of cataract extraction Hx of appendectomy Hx of tonsillectomy Family History Mother Pancreatic cancer Ovarian cancer Father Heart attack Pancreatic cancer Social History (Updated 12/22/22 @ 14:38 by Radha Fowler) Household Members: Spouse Household Members Other:: 3 Housing: House Are you a primary urgent care nurse practitioner to a significant other at home: No Do you presently have visiting nurse or other home services: No Alcohol intake: never Patient Tobacco Use Status: Former Tobacco user Quit Date: Tobacco use type: Cigarette Second Hand Smoke Exposure: No service: No Current occupational status: retired Current occupation: rt handed Physical Exam Vital Signs: Last Vital Signs Pulse 86 12/22/22 14:33 BP 144/90 H 12/22/22 14:33 Pulse Ox 97 12/22/22 14:33 Oxygen Delivery Method Room Air 12/22/22 14:33 BMI result Body Mass Index 27.7 Const General: cooperative; No comfortable Nutritional Appearance: overweight Orientation/consciousness: patient oriented x3 Eyes Pupils: Equal, round and reactive pupils present Neuro Other: ptosis bilateral- no upgaze - better than last visit kyphosis - slow using walker General: patient oriented x3, tone normal and moves all extremities Cranial nerves: Yes Equal, round and reactive pupils present, Yes Nystagmus not present, Yes Normal facial strength present and Yes Midline tongue present Cognition (Neuro): normal cognition Gait exam (Neuro): Antalgic gait present Motor exam (neuro): 5/5 motor strength present throughout and Normal motor muscle tone present throughout Deep tendon reflexes (DTR's): Right triceps reflex intensity grade: 3+, Left triceps reflex intensity grade: 3+, Rt Biceps (C5, C6): 3+, Left biceps reflex intensity grade: 3+, Right brachioradialis reflex intensity grade: 3+, Left brachioradialis reflex intensity grade: 3+, Right patellar reflex intensity grade: 2+ and Left patellar reflex intensity grade: 2+ Coordination: [id number] test normal Assessment & Plan Assessment & Plan (1) Ocular myasthenia gravis: Code(s): G70.00 - Myasthenia gravis without (acute) exacerbation (2) Cervicalgia: Code(s): M54.2 - Cervicalgia Plan Anti MUSK antibody was negative Increase Pyridostigmine 60mg tid C spine X ray f/u Geospatial Developer Orders: Orders MR head/brain wo con Today H02.409 - Unspecified ptosis of unspecified eyelid, H53.2 - Diplopia Medications: Changed From pyridostigmine bromide (Mestinon) 60 mg PO BID 60 tabs 3RF To pyridostigmine bromide (Mestinon) 60 mg PO TID 90 tabs 3RF Coding Level of Care Code Est Pt Level 4 (96770) Diagnoses Ocular myasthenia gravis G70.00 Cervicalgia M54.2
[2022-12-22 14:33] VITALS: BP 144/90; PULSE 86; O2SAT 97; BMI 27.7
== END 2022-12-22 16:00 | disposition home or self-care (01) ==
PROVIDERS: PCP Internal Medicine; Visit Provider Psychiatry & Neurology Neurology
DX: G70.00 Myasthenia gravis without (acute) exacerbation (principal); M54.2 Cervicalgia
CPT/HCPCS: 99214

== ENCOUNTER → 2022-12-22 14:28 | Outpatient (BNVA) | payer MEDICARE, SELFPAY | PROVIDERS: PCP Internal Medicine; Visit Provider Psychiatry & Neurology Neurology | DX: G70.00 Myasthenia gravis without (acute) exacerbation (principal); M54.2 Cervicalgia | CPT/HCPCS: 99212 ==

== ENCOUNTER 2023-01-26 10:30 | Day surgery (SDC) | payer MEDICARE, SELFPAY ==
--- NOTE | 2023-01-25 09:29 | HO.ANESPROP2 ---
Documented by User: Michelle Hawley NP 01/25/23 09:31 HPI - Anesthesia Eval Consult details Narrative: 78yo M for Upper Endoscopy and Colonoscopy Ocular myesthenia gravis s/p EGD 09/2022 with MAC PMF Active Problems Active Problems: All Active Problems (Updated 12/22/22 @ 14:55 by Haritha Green MD) Diplopia (Acute) Ocular myasthenia gravis (Acute) Cervicalgia (Acute) Cervical spondylosis (Acute) Ptosis (Acute) Gastric ulcer (Acute) Status post total knee replacement, left (Acute) Past Medical History Medical History Diplopia Ocular myasthenia gravis Cervicalgia Cervical spondylosis Ptosis Anemia Stress incontinence Hayfever Osteoarthritis Lumbar disc disease GERD (gastroesophageal reflux disease) Arthritis of left knee Family History Family History Mother Pancreatic cancer Ovarian cancer Father Heart attack Pancreatic cancer Family history of problems with anesthesia: No Surgical History Surgical History Hx of esophagogastroduodenoscopy S/P D&C (status post dilation and curettage) History of total left knee replacement (TKR) (02/18/21) History of cataract extraction Hx of appendectomy Hx of tonsillectomy History of Problems with Anesthesia: No Social History Social History Household Members: Spouse Household Members Other:: 3 Housing: House Are you a primary child care coordinator to a significant other at home: No Do you presently have visiting nurse or other home services: No Alcohol intake: never Patient Tobacco Use Status: Former Tobacco user Quit Date: Tobacco use type: Cigarette Second Hand Smoke Exposure: No service: No Current occupational status: retired Current occupation: rt handed Meds Allergies Allergy/AdvReac Type Severity Reaction Status Date / Time ciprofloxacin [Cipro] Allergy Intermediate Itching Verified 12/22/22 14:36 Biaxin Allergy Severe Dizziness Uncoded 02/18/21 06:15 Home Medications Medication Instructions Recorded Confirmed Last Taken Type calcium carb-ergocalciferol (vit 1 tab PO DAILY 09/23/22 12/22/22 Unknown History D2) 600 mg calcium-200 unit tablet multivitamin 1 tab PO DAILY 09/23/22 12/22/22 Unknown History biotin 1,250 mcg-collagen 50 tab PO 12/22/22 12/22/22 Unknown History mg-vit C 67.5 mg-vit E-herbal chew tablet Exam Exam Date and Time: January 25, 2023 0929 Pertinent Lab Results Pertinent Lab Results: Laboratory Tests 01/21/21 12/02/22 08:15 14:34 WBC 5.2 6.0 Hgb 11.8 L Hct 38.5 Plt Count 332 Sodium 142 Potassium 4.0 Chloride 107 Carbon Dioxide 28 BUN 11 Creatinine 0.79 Narrative Narrative: EKG 09/2022 Vent. Rate : 085 BPM Atrial Rate : 085 BPM P-R Int : 134 ms QRS Dur : 080 ms QT Int : 374 ms P-R-T Axes : 057 005 049 degrees QTc Int : 445 ms Normal sinus rhythm Possible Left atrial enlargement Borderline ECG When compared with ECG of 21-JAN-2021 08:03, No significant change was found Assessment and Plan Assessment Anesthesia Assessment: Chart Reviewed Final Anesthetic Review Family History of Problems with Anesthesia: No History of Problems with Anesthesia: No Documented by User: Yvette Shelby MD 01/26/23 11:36 [facility] Active Problems Active Problems: All Active Problems (Updated 12/27/22 @ 10:50 by Yvette Shelby MD) Diplopia (Acute) Ocular myasthenia gravis (Acute) Cervicalgia (Acute) Cervical spondylosis (Acute) Ptosis (Acute) Gastric ulcer (Acute) Status post total knee replacement, left (Acute) Past Medical History Medical History Diplopia Ocular myasthenia gravis Cervicalgia Cervical spondylosis Ptosis Anemia Stress incontinence Hayfever Osteoarthritis Lumbar disc disease GERD (gastroesophageal reflux disease) Arthritis of left knee Family History Family History Mother Pancreatic cancer Ovarian cancer Father Heart attack Pancreatic cancer Surgical History Surgical History Hx of esophagogastroduodenoscopy S/P D&C (status post dilation and curettage) History of total left knee replacement (TKR) (02/18/21) History of cataract extraction Hx of appendectomy Hx of tonsillectomy Social History Social History Household Members: Spouse Household Members Other:: 3 Housing: House Are you a primary child care coordinator to a significant other at home: No Do you presently have visiting nurse or other home services: No Alcohol intake: never Patient Tobacco Use Status: Former Tobacco user Quit Date: Tobacco use type: Cigarette Second Hand Smoke Exposure: No service: No Current occupational status: retired Current occupation: rt handed Meds Allergies Allergy/AdvReac Type Severity Reaction Status Date / Time ciprofloxacin [Cipro] Allergy Intermediate Itching Verified 12/22/22 14:36 Biaxin Allergy Severe Dizziness Uncoded 02/18/21 06:15 Home Medications Medication Instructions Recorded Confirmed Last Taken Type calcium carb-ergocalciferol (vit 1 tab PO DAILY 09/23/22 12/22/22 Unknown History D2) 600 mg calcium-200 unit tablet multivitamin 1 tab PO DAILY 09/23/22 12/22/22 Unknown History biotin 1,250 mcg-collagen 50 tab PO 12/22/22 12/22/22 Unknown History mg-vit C 67.5 mg-vit E-herbal chew tablet Exam Height,Weight and Vital Signs: Height 5 ft 2 in Weight 68.039 kg Vital Signs Temp Pulse Resp BP Pulse Ox O2 Del Method 01/26/23 10:59 98.2 F 90 18 166/79 H 97 Room Air Airway Mallampati Class: II TM Dist: >3cm Neck ROM: Full Loose/Missing/Broken Teeth: No (Denies broken, loose, missing teeth) Heart: RRR Lungs: CTAB Assessment and Plan Assessment Anesthesia Assessment: Anesthesia Plan Discussed Final Anesthetic Review NPO: Yes ASA Class: III Final Preanesthetic Review: No Changes in Pt Med Stat, Meds/Allgs Chart Reviewed, Consent Obtained/Reviewed and Anes Risks/Benef Reviewed Patient Risk: Intermediate Procedure Risk: Low Assessment/Block/Sedation in SS: Assess/Block/Sedation-SS Anesthetic Plan Anesthetic Plan: MAC: Disposition: Standard PACU
--- NOTE | 2023-01-26 10:54 | MHC.SHP ---
Pre-Procedural Eval Section A Date of Service: 01/26/23 Section B Chief Complaint: Iron deficiency anemia, unspecified,Gastric ulcer, Details of Present Illness: see H&P and addenda no changes Relevant Family History (Specify if Yes): No Relevant Social History: None Present Medications: see Short Stay Collaborative assessment Medical History: No relevant PMH History of Previous Operations: No relevant previous surgery Allergies: Allergies Allergy/AdvReac Type Severity Reaction Status Date / Time ciprofloxacin [Cipro] Allergy Intermediate Itching Verified 12/22/22 14:36 Biaxin Allergy Severe Dizziness Uncoded 02/18/21 06:15 Review of Systems Sugical H&P ROS: Negative: Constitution, Cardiovascular, Respiratory, Neurological, Psychiatric, Hem-Onc, Allergic/Immunologic, Gastrointestinal, Genitourinary, Musculoskeletal, Integumentary, Endocrine and Eyes/Ears/Nose/Throat Exam Surgical H&P Exam: Normal: HEENT, Normal: Heart, Normal: Lungs, Normal: Extremities, Normal: Abdomen, Normal: Skin and Normal: Neurological Plan Diagnosis/Plan: Unchanged I have reviewed the history and physical and performed a pertinent physical examination on my patient. No changes have occurred unless specified. Time Spent With Patient Time: Total time managing care of this patient today ____ minutes.
[2023-01-26 10:59] VITALS: BP 166/79; PULSE 90; RESP 18; TEMP 36.8; O2SAT 97; BMI 27.4
[2023-01-26 11:51] VITALS: BP 138/69; PULSE 72; RESP 16; TEMP 36.7; O2SAT 98
[2023-01-26 12:07] VITALS: BP 147/94; PULSE 73; RESP 18; TEMP 36.7; O2SAT 96
--- NOTE | 2023-01-26 21:22 | OP_ITS ---
DATE OF SERVICE: 01/26/2023 SURGEON: Ole Adorno MD INDICATIONS: Iron-deficiency anemia and gastric ulcers. PREOPERATIVE DIAGNOSIS: POSTOPERATIVE DIAGNOSIS: PROCEDURE PERFORMED: ESTIMATED BLOOD LOSS: COMPLICATIONS: ANESTHESIA: Monitored anesthesia care. ASSISTANTS: SPECIMENS: PROCEDURES PERFORMED: Upper endoscopy with biopsy, colonoscopy to the cecum with snare polypectomy. DESCRIPTION OF PROCEDURE: A history and physical were performed. The risks and benefits of the procedure were explained to the patient, and informed consent was obtained. The patient was placed in the left lateral decubitus position. The Olympus video gastroscope was introduced into the esophagus, stomach, and duodenum. Examination was performed, and the scope was removed. She was repositioned for colonoscopy. A digital rectal exam was performed and was found to be normal. The Olympus pediatric video colonoscope was introduced into the rectum and advanced to the cecum. The cecum was identified by transillumination, palpation, and identification of ileocecal valve. Examination was performed, and the scope was removed. She tolerated both procedures well, and was returned to recovery in stable condition. FINDINGS: Upper endoscopy: 1. Esophagus. The esophagus was normal. There was no esophagitis. There was a 6 cm hiatal hernia. 2. Stomach. The stomach showed no evidence of masses or ulcers. The previously identified antral ulcers were healed. There were several benign-appearing, less than 10 mm gastric polyps in the body of the stomach. 3. Duodenum, the bulb and second portion were normal. Random biopsies were obtained from the second portion. Colonoscopy: The terminal ileum was not examined. There was some liquid stool and a few pieces of solid stool, which were washed and suctioned as best possible. There were several polyps identified and removed with a cold snare. These were located at 80 cm and 40 cm. No other polyps were identified. There was moderate diverticulosis. Retroflexed examination showed moderately large internal hemorrhoids. IMPRESSION: 1. Hiatal hernia. 2. Gastric polyps. 3. Colon polyps. RECOMMENDATION: Follow up the biopsy results. MD KAIA Loera/LEO / [id number]
== END 2023-01-26 12:41 | disposition home or self-care (01) ==
PROVIDERS: PCP Internal Medicine; Visit Provider Internal Medicine Gastroenterology
PROC: (CPT 43239; principal; 2023-01-26 11:10)
DX: K31.7 Polyp of stomach and duodenum (principal); K21.9 Gastro-esophageal reflux disease without esophagitis; K44.9 Diaphragmatic hernia without obstruction or gangrene; D12.4 Benign neoplasm of descending colon; D12.5 Benign neoplasm of sigmoid colon; K57.30 Diverticulosis of large intestine without perforation or abscess without bleeding; K64.8 Other hemorrhoids; D50.9 Iron deficiency anemia, unspecified; H53.2 Diplopia; K25.9 Gastric ulcer, unspecified as acute or chronic, without hemorrhage or perforation; G70.00 Myasthenia gravis without (acute) exacerbation
CPT/HCPCS: 43239; 45385; 88305

== ENCOUNTER 2023-02-03 11:27 | Outpatient (REF) | payer MEDICARE, SELFPAY ==
--- NOTE | ~2023-02-03 | MR_ITS ---
MRI OF THE BRAIN WITHOUT IV CONTRAST INDICATION: Unspecified ptosis of unspecified eyelid COMPARISON: None available. TECHNIQUE: Multiplanar multisequence MR imaging of the brain was obtained without IV contrast. FINDINGS: There is a 2.2 x 1.8 x 2.4 cm (AP x CC x TV) T2/FLAIR hyperintense lesion centered in the anterior cranial fossa image demonstrates susceptibility artifact. This lesion appears to be extra-axial, along the fovea ethmoidalis/cribriform plate with associated mass effect on the subadjacent left greater than right rectus gyri. There is suggestion of mass effect on the left greater than right orbital contents with medial displacement of the left medial rectus muscle. There is also suggestion of mass effect on the left intraorbital optic nerve. There is no abnormal enhancement or mass effect on the optic chiasm. No acute intracranial hemorrhage or infarct. Scattered and confluent periventricular white matter T2/FLAIR hyperintensities, nonspecific however commonly seen with small vessel ischemic disease. No midline shift or hydrocephalus. No acute extra-axial fluid collections. The osseous structures are unremarkable. The pituitary gland, pineal gland and remaining midline structures are unremarkable. Sequela bilateral lens replacement. orbital pathology. Mild mucosal thickening of the paranasal sinuses. The mastoid air cells are clear. MR/MR head/brain wo con IMPRESSION: -2.4 cm T2/FLAIR hyperintense lesion centered in the anterior cranial fossa, along the fovea ethmoidalis/cribriform plate with associated mass effect on the left greater than right orbital contents and medial rectus gyri. There is also suggestion of mass effect on the left medial rectus muscle and intraorbital optic nerve. Findings are favored to reflect a meningioma. Recommend contrast-enhanced MRI of the brain and orbits for further characterization.
== END 2023-02-03 11:28 | disposition home or self-care (01) ==
LOC: HO.MRI 11:27
PROVIDERS: PCP Internal Medicine; Visit Provider Psychiatry & Neurology Neurology
DX: H53.2 Diplopia (principal); H02.409 Unspecified ptosis of unspecified eyelid
CPT/HCPCS: 70551

== ENCOUNTER 2023-02-19 10:17 | Outpatient (REF) | payer MEDICARE, SELFPAY ==
[2023-02-19 13:44] LABS: MANUAL DIFF FLAG NO
[2023-02-19 13:51] LABS: Basophils Absolute Auto 0.1 X10*3/uL (0.0-0.2); Basophils Percent Auto 1.1 % (0-2); Eosinophils Absolute Auto 0.1 X10*3/uL (0.0-0.4); Eosinophils Percent Auto 1.1 % (0-4); Hematocrit 39.2 % (37.0-47.0); Hemoglobin 12.2 g/dl (12.0-16.0); Imm Gran Abs Auto 0.01 X10*3/uL (0.00-0.03); Imm Gran Pct Auto 0.2 % (0.0-0.4); Lymphocytes Absolute Auto 1.8 X10*3/uL (1.2-4.9); Lymphocytes Percent Auto 32.8 % (20-40); Mean Corpuscular HGB Conc 31.1 g/dl (31.0-35.0); Mean Corpuscular Hemoglobin 28.8 pg (27.0-33.0); Mean Corpuscular Volume 92.7 fL (80.0-98.0); Mean Platelet Volume 10.7 fL (9.4-12.3); Monocytes Absolute Auto 0.5 X10*3/uL (0.1-1.2); Monocytes Percent Auto 9.5 % (2-11); Neutrophils Percent Auto 55.3 % (45-73); Platelet Count 317 X10*3/uL (160-400); Red Blood Count 4.23 X10*6/uL (4.20-5.50); Red Cell Distribution Width 15.4 % (11.0-16.0); White Blood Count 5.5 X10*3/uL (4.8-10.8)
[2023-02-19 14:13] LABS: Alanine Aminotransferase 16 U/L (0-31); Alkaline Phosphatase 52 U/L (39-117); Anion Gap 11 (12-20); Aspartate Amino Transferase 21 U/L (5-31); Bilirubin Total 0.4 mg/dL (0.0-1.0); Blood Urea Nitrogen 15 mg/dL (9-16); Calcium 9.4 mg/dL (8.4-10.2); Carbon Dioxide 27 mmol/L (22-29); Chloride 108 mmol/L (96-108); Estimated Glomerular Filt Rate > 60; Glucose Random 90 mg/dL (60-115); Iron 106 mcg/dL (30-160); Percent Iron Saturation 35 % (15-50); Potassium 4.2 mmol/L (3.3-5.1); Sodium 142 mmol/L (135-145); Total Iron Binding Capacity 300 mcg/dL (228-428); Total Protein 6.9 g/dL (6.5-8.0); Unsaturated Iron Binding 194 ug/dL
== END 2023-02-19 10:18 | disposition home or self-care (01) ==
LOC: HO.HMGCLDS 10:17
PROVIDERS: PCP Internal Medicine; Visit Provider Internal Medicine
DX: D64.9 Anemia, unspecified (principal); K21.9 Gastro-esophageal reflux disease without esophagitis
CPT/HCPCS: 36415; 80053; 83540; 85025

== ENCOUNTER 2023-03-10 13:01 | Outpatient (AMB) | payer MEDICARE, SELFPAY ==
--- NOTE | 2023-03-10 13:09 | A.SPINEOV_ITS ---
Intake Intake Visit Reasons: Back pain Intake Note: Ms. Bright is here today c/o low back pain. MRI done @ [facility]/brought disc. Mohs Surgeon Required: No Allergies ciprofloxacin [Cipro] Allergy (Intermediate, Verified 12/22/22 14:36) Itching Biaxin Allergy (Severe, Uncoded 02/18/21 06:15) Dizziness Assessment & Plan Assessment & Plan (1) Scoliosis of lumbosacral region due to degenerative disease of spine in adult: Code(s): M41.57 - Other secondary scoliosis, lumbosacral region (2) Ocular myasthenia gravis: Code(s): G70.00 - Myasthenia gravis without (acute) exacerbation Plan Dear colleague Thank you for referring Leni Bright to the office today with a chief complaint of left sided back pain hip pain. 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 Laying down provides complete relief. She denies radiation down her legs. She denies numbness or weakness. She has done physical therapy and chiropractic therapy. No injections. She had 2 falls in the last few weeks and injured her coccyx. She states her balance is off PMH: TIA, appendectomy, left knee replacement and cataract surgery, myasthenia gravis Medications: Omeprazole, pyridostigmine, Allergies: Ciprofloxacin, Bactrim Physical Exam: Pleasant female. Ophthalmoplegia. She ambulates with a walker. On inspection there is a thoracolumbar scoliosis with the curvature towards the left side. Radiological Studies: MRI done at [facility] shows a impressive lumbar degenerative scoliosis with the apex at L1-2 and L2-3. Impression/Plan: This patient is suffering from left-sided back pain and hip pain with standing or walking. I explained that gravity increases the curvature and then produces symptoms most likely the facet joints or from compression of a nerve in the L1 or L2 foramen. Unfortunately, I do not have a minor surgical option to address this her symptom. I will refer her to pain management to see if she is a candidate for a left L1 or L2 nerve block or any other form of intervention. Thank you for allowing me to participate in your patients care. total time spent was 45 minutes in counseling ,coordination of plan, personal review of imaging, surgical decision making and subsequent plan Simone Dumont MD, PhD Spine Fellowship Trained Neurosurgeon Director, [facility] Coding Level of Care Code New Pt Level 4 (94489) Diagnoses Scoliosis of lumbosacral region due to degenerative disease of spine in adult M41.57 Ocular myasthenia gravis G70.00
== END 2023-03-10 14:22 | disposition home or self-care (01) ==
PROVIDERS: PCP Internal Medicine; Referring Provider Internal Medicine; Visit Provider Neurological Surgery
DX: M41.57 Other secondary scoliosis, lumbosacral region (principal); G70.00 Myasthenia gravis without (acute) exacerbation
CPT/HCPCS: 99204

== ENCOUNTER → 2023-03-10 13:01 | Outpatient (BNVA) | payer MEDICARE, SELFPAY | PROVIDERS: PCP Internal Medicine; Visit Provider Neurological Surgery | DX: M41.57 Other secondary scoliosis, lumbosacral region (principal); G70.00 Myasthenia gravis without (acute) exacerbation | CPT/HCPCS: 99202 ==

== ENCOUNTER 2023-04-13 14:01 | Outpatient (AMB) | payer MEDICARE, SELFPAY ==
--- NOTE | 2023-04-13 14:10 | MHC.OFFVIS ---
Intake Vital Signs 04/13/23 14:12 Height 5 ft 2 in Weight 158 lb 2 oz BMI 28.9 BP 140/70 H Position Sitting Pulse 66 Pulse Source Pulse Oximeter Pulse Oximetry (%) 97 Oxygen Delivery Method Room Air Intake Visit Reasons: 3 mnts f/u appt - Confirmed Allergies ciprofloxacin [Cipro] Allergy (Intermediate, Verified 04/13/23 14:15) Itching Biaxin Allergy (Severe, Uncoded 02/18/21 06:15) Dizziness HPI HPI Comments History of Present Illness Details 78y/o female is referred here for follow up of seronegative ocular myasthenia.she noticed improvement with pyridostigmine. she reports droopy eyelids for 4 years now. It fluctuates and worsens in the evenings. its worse in her right eye.she also has double vision worsens when she is fatigued. she denies speech difficulty or any problems with swallowing she also has lumbar spondylosis and has gait issues related to that. she uses a walker and had some falls. she has a diagnosis of peripheral neuropathy. Her MRI showed an anterior cranial fossa lesion ( extra axial with mass effect on the orbital muscles ) she is scheduled for MRI with kayla and orbits next week. she denies any pain [facility] Medical History (Updated 04/13/23 @ 14:29 by Haritha Green MD) Abnormal brain MRI Meningioma of orbit Diplopia Ocular myasthenia gravis Cervicalgia Cervical spondylosis Ptosis Anemia Stress incontinence Hayfever Osteoarthritis Lumbar disc disease GERD (gastroesophageal reflux disease) Arthritis of left knee Surgical History Hx of esophagogastroduodenoscopy S/P D&C (status post dilation and curettage) History of total left knee replacement (TKR) (02/18/21) History of cataract extraction Hx of appendectomy Hx of tonsillectomy Family History Mother Pancreatic cancer Ovarian cancer Father Heart attack Pancreatic cancer Social History Household Members: Spouse Household Members Other:: 3 Housing: House Are you a primary caregivers homecare to a significant other at home: No Do you presently have visiting nurse or other home services: No Alcohol intake: never Patient Tobacco Use Status: Former Tobacco user Quit Date: Tobacco use type: Cigarette Second Hand Smoke Exposure: No service: No Current occupational status: retired Current occupation: rt handed Physical Exam Vital Signs: Last Vital Signs Pulse 66 04/13/23 14:12 BP 140/70 H 04/13/23 14:12 Pulse Ox 97 04/13/23 14:12 Oxygen Delivery Method Room Air 04/13/23 14:12 BMI result Body Mass Index 28.9 Const General: cooperative; No comfortable Nutritional Appearance: overweight Orientation/consciousness: patient oriented x3 Eyes Pupils: Equal, round and reactive pupils present Neuro Other: ptosis bilateral- no upgaze - better than last visit kyphosis - slow using walker General: patient oriented x3, tone normal and moves all extremities Cranial nerves: Yes Equal, round and reactive pupils present, Yes Nystagmus not present, Yes Normal facial strength present and Yes Midline tongue present Cognition (Neuro): normal cognition Gait exam (Neuro): Antalgic gait present Motor exam (neuro): 5/5 motor strength present throughout and Normal motor muscle tone present throughout Deep tendon reflexes (DTR's): Right triceps reflex intensity grade: 3+, Left triceps reflex intensity grade: 3+, Rt Biceps (C5, C6): 3+, Left biceps reflex intensity grade: 3+, Right brachioradialis reflex intensity grade: 3+, Left brachioradialis reflex intensity grade: 3+, Right patellar reflex intensity grade: 2+ and Left patellar reflex intensity grade: 2+ Coordination: [id number] test normal Results Reviewed Results Reviewed: [place] [id number] Magnetic Resonance Report Signed Patient: Leni Bright MR#: [id number] : 1945 Acct:[id number] Age/Sex: 78 / F ADM Date: 02/03/23 Loc: HO.MRI Attending Dr: Haritha Green MD Ordering Physician: Haritha Green MD Date of Service: 02/03/23 Procedure(s): MR head/brain wo con Accession Number(s): [id number] cc: Haritha Green MD; Andry Mendoza MD~ MRI OF THE BRAIN WITHOUT IV CONTRAST INDICATION: Unspecified ptosis of unspecified eyelid COMPARISON: None available. TECHNIQUE: Multiplanar multisequence MR imaging of the brain was obtained without IV contrast. FINDINGS: There is a 2.2 x 1.8 x 2.4 cm (AP x CC x TV) T2/FLAIR hyperintense lesion centered in the anterior cranial fossa image demonstrates susceptibility artifact. This lesion appears to be extra-axial, along the fovea ethmoidalis/cribriform plate with associated mass effect on the subadjacent left greater than right rectus gyri. There is suggestion of mass effect on the left greater than right orbital contents with medial displacement of the left medial rectus muscle. There is also suggestion of mass effect on the left intraorbital optic nerve. There is no abnormal enhancement or mass effect on the optic chiasm. No acute intracranial hemorrhage or infarct. Scattered and confluent periventricular white matter T2/FLAIR hyperintensities, nonspecific however commonly seen with small vessel ischemic disease. No midline shift or hydrocephalus. No acute extra-axial fluid collections. The osseous structures are unremarkable. The pituitary gland, pineal gland and remaining midline structures are unremarkable. Sequela bilateral lens replacement. orbital pathology. Mild mucosal thickening of the paranasal sinuses. The mastoid air cells are clear. MR/MR head/brain wo con IMPRESSION: -2.4 cm T2/FLAIR hyperintense lesion centered in the anterior cranial fossa, along the fovea ethmoidalis/cribriform plate with associated mass effect on the left greater than right orbital contents and medial rectus gyri. There is also suggestion of mass effect on the left medial rectus muscle and intraorbital optic nerve. Findings are favored to reflect a meningioma. Recommend contrast-enhanced MRI of the brain and orbits for further characterization. Assessment & Plan Assessment & Plan (1) Ocular myasthenia gravis: Code(s): G70.00 - Myasthenia gravis without (acute) exacerbation (2) Cervicalgia: Code(s): M54.2 - Cervicalgia (3) Abnormal brain MRI: Comment: anterior cranial fossa lesion - extra axial Code(s): R90.89 - Other abnormal findings on diagnostic imaging of central nervous system Plan Anti MUSK antibody was negative Pyridostigmine 60mg tid Awaiting MRI brain with kayla and orbits - will consider referral to neurosurgery Coding Level of Care Code Est Pt Level 4 (32779) Diagnoses Ocular myasthenia gravis G70.00 Cervicalgia M54.2 Abnormal brain MRI R90.89
[2023-04-13 14:12] VITALS: BP 140/70; PULSE 66; O2SAT 97; BMI 28.9
== END 2023-04-13 16:08 | disposition home or self-care (01) ==
PROVIDERS: PCP Internal Medicine; Visit Provider Psychiatry & Neurology Neurology
DX: G70.00 Myasthenia gravis without (acute) exacerbation (principal); M54.2 Cervicalgia; R90.89 Other abnormal findings on diagnostic imaging of central nervous system
CPT/HCPCS: 99214

== ENCOUNTER → 2023-04-13 14:01 | Outpatient (BNVA) | payer MEDICARE, SELFPAY | PROVIDERS: PCP Internal Medicine; Visit Provider Psychiatry & Neurology Neurology | DX: G70.00 Myasthenia gravis without (acute) exacerbation (principal); M54.2 Cervicalgia; R90.89 Other abnormal findings on diagnostic imaging of central nervous system | CPT/HCPCS: 99212 ==

== ENCOUNTER 2023-04-20 13:30 | Outpatient (REF) | payer MEDICARE, SELFPAY ==
--- NOTE | ~2023-04-20 | MR_ITS ---
EXAMINATION: MRI brain. CLINICAL INFORMATION: Cerebral vascular disease, diplopia. COMPARISON: MRI brain on 02/03/2023 TECHNIQUE: Examination was performed in a high field strength MRI scanner. Multiplanar multisequence MR imaging of the brain was performed without IV contrast. Post contrast axial, sagittal and coronal T1 weighted images of the brain were obtained after IV injection of 7 mL Gadavist. FINDINGS: Ventricles, sulci and cisterns are dilated. Several nonenhancing T2 hyperintense focal lesions are seen in bilateral frontal and parietal deep white matter. Midline anterior cranial fossa extra-axial T1 isointense diffusely enhancing mass lesion is seen over the cribriform plate, measuring 2.4 cm in AP diameter and width, 1.8 cm in vertical height (previously 2.2 x 2.4 x 1.8 cm). No focal brainstem or cerebellar lesions with abnormal signal can be seen. Diffusion weighted images show no abnormal regional decrease in diffusion. Post contrast images show no enhancing cerebral, brainstem or cerebellar lesions. No abnormal meningeal enhancement is seen. The pituitary gland is normal. Optic chiasm is not displaced. Cerebellar tonsils position is normal. MR/MR orbits face neck wo/w con IMPRESSION: 1. Unchanged age related cerebral atrophy and focal ischemic white matter lesions compatible with microangiopathy. 2. No acute cerebral infarction is seen. 3. No interval change in size of the midline anterior cranial fossa extra-axial mass lesion, compatible with stable meningioma. No evidence of impingement of extraocular muscles or optic chiasm displacement could be seen. 4. No evidence of intracranial hemorrhage. EXAMINATION: MRI of orbits. CLINICAL INFORMATION: Diplopia. COMPARISON: MRI brain on 02/03/2023 TECHNIQUE: Examination was performed in a high field strength MRI scanner. Multiplanar multisequence MR imaging of the orbits was performed without IV contrast enhancement. Axial and coronal T1 weighted fat suppressed images of the orbits were obtained after IV injection of 7 mL Gadavist. FINDINGS: Midline anterior cranial fossa extra-axial T1 isointense diffusely enhancing mass lesion is seen over the cribriform plate, measuring 2.4 cm in AP diameter and width, 1.8 cm in vertical height (previously 2.2 x 2.4 x 1.8 cm). There is no invasion into the bony orbits. ORBITS: Bilateral eyeballs are intact. Once again, the picayune crystalline lenses are not seen. The extraocular muscles, bilateral optic nerve/ophthalmic vein complexes are intact with normal signal intensity, enhancement and symmetrical. Bilateral intraorbital fat planes are normal. At the superior medial border of bilateral orbits, the visualized bilateral superior and oblique muscles, bilateral superior rectus muscles are normal in position. No evidence of displacement by the midline tumor could be seen. PARANASAL SINUSES: Bilateral frontal, ethmoid, maxillary and sphenoid sinuses are clear. There is mild deviation of nasal septum to the left by 0.5 cm. PHARYNX: The visualized nasopharynx, oropharynx, hypopharynx are normal with no focal mass lesion. PHARYNGEAL STRUCTURES: Bilateral valleculae, epiglottis, piriform sinuses, vocal cords and arytenoids are normal. SALIVARY GLANDS: Bilateral parotid and submandibular salivary glands are symmetrical without focal lesion. LYMPH NODES: No abnormally enlarged cervical or superior mediastinal lymph nodes are seen. BONES: No fracture or dislocation. No focal bone lesion diagnostic of metastatic disease could be seen in the cervical spine and visualized skull base. IMPRESSION: 1. Right anterior cranial fossa meningioma is seen without invasion into the orbits or displacement of extraocular muscle. 2. Status post bilateral crystalline lens replacement.
[2023-04-20] MEDS: gadobutroL 7.5 ML VIAL IVPUSH (14:46)
== END 2023-04-20 13:31 | disposition home or self-care (01) ==
LOC: HO.MRI 13:30
PROVIDERS: PCP Internal Medicine; Visit Provider Psychiatry & Neurology Neurology
DX: H53.2 Diplopia (principal); D31.60 Benign neoplasm of unspecified site of unspecified orbit; H02.409 Unspecified ptosis of unspecified eyelid
CPT/HCPCS: 70543; 70553; A9585

== ENCOUNTER 2023-04-22 12:55 | Outpatient (AMB) | payer MEDICARE, SELFPAY ==
--- NOTE | 2023-04-22 12:57 | A.OFFVIS_ITS ---
Intake Vital Signs 04/22/23 13:10 Height 5 ft 2 in Weight 159 lb 3 oz BMI 29.1 BP 163/77 H Blood Pressure Location Lt brachial Position Sitting Pulse 78 Pulse Source Pulse Oximeter Pulse Oximetry (%) 98 Oxygen Delivery Method Room Air Intake Visit Reasons: Other secondary scoliosis, lumbrosacral region Intake Note: Leni comes in today for back pain that has been radiating down to left hip, states that it has been getting worse for the last few months. Currently takes Tylenol for the pain which she feels only gives her about 45 mins of relief. Has done physical therapy for her back about 2 years ago but does not feel like it helped. 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 Patient recently evaluated by neuro spine office, referred here for consideration of L1-L2 GATITO. Recent LS MRI reviewed, Neuro Spine office note reviewed. Patient reports left lower back pain for last 1.5 years, denies inciting injury. She reports pain into the hip, denies pain down either leg. Denies numbness, tingling, burning pain of lower extremities. She has taken OTC medication and completed PT without improvement in her pain. She does HEP but pain persists. Denies red flag symptoms including new loss of bowel, bladder or saddle anesthesia. Pain today is rated as 1/10, constant, worse throughout the day. In terms of muscle damage condition is described as aching, stabbing, sharp. Pain is negatively impacting patients enjoyment of life, general activity, mood, normal work, recreational activities, relationships with people and walking. She currently lives in 2 story home, needs stair chair lift to access the upper floor. They are in the process of cleaning out the house so they can move to a single story home. Her condition is significantly limiting her function, mobility and activities of daily living. reports she has fallen a couple times over the last several months, currently using rollator walker for stability/support. [facility] Medical History (Updated 04/22/23 @ 13:09 by Dorys Reid, ELECTRICAL INSTALLATION INSPECTOR, SENIOR ACCOUNT REPRESENTATIVE) Abnormal brain MRI Meningioma of orbit Diplopia Ocular myasthenia gravis Cervicalgia Cervical spondylosis Ptosis Anemia Stress incontinence Hayfever Osteoarthritis Lumbar disc disease GERD (gastroesophageal reflux disease) Arthritis of left knee Surgical History Hx of esophagogastroduodenoscopy S/P D&C (status post dilation and curettage) History of total left knee replacement (TKR) (02/18/21) History of cataract extraction Hx of appendectomy Hx of tonsillectomy Family History Mother Pancreatic cancer Ovarian cancer Father Heart attack Pancreatic cancer Social History Household Members: Spouse Household Members Other:: 3 Housing: House Are you a primary career resource specialist to a significant other at home: No Do you presently have visiting nurse or other home services: No Alcohol intake: never Patient Tobacco Use Status: Former Tobacco user Quit Date: Tobacco use type: Cigarette Second Hand Smoke Exposure: No service: No Current occupational status: retired Current occupation: rt handed Review of Systems Const All systems reviewed & are unremarkable except as noted in HPI and below Physical Exam General: awake, alert, oriented. Answers questions appropriately. Fully engaged in examination. Skin: warm, dry, intact HEENT: Normocephalic. Hearing intact. Cardiac: External chest normal in appearance. Respiratory: No cough, audible wheezing or stridor. Abdomen: without gross distension. MS: significant curvature of the spine Able to transition from sit to stand unassisted. Ambulates with bilaterally normal heel strike and toe off Nontender to palpation over midline lumbar vertebrae SLR negative bilaterally no pain with forward flexion, unable to extend BLE strength 5/5 Neurological: Oriented to person, place, time and situation. Thought process intact. Ambulates with rollator walker Psychiatric: Appropriate mood and affect. Good judgment and insight. Results Reviewed Results Reviewed: 12/15/22 MR SPINE LUMBAR without CONTRAST FINDINGS: Routine spinal anatomy is presumed. There are no comparison examinations. The last well-formed intervertebral disc is annotated as L5-S1. A saved screen has been sent to PACS for reference. There is grade 1 anterolisthesis L1 on L2. There is right lateral subluxation of L1 on L2 and L2 on L3.. There is left lateral subluxation of L4 on L5. Vertebral heights are well maintained. Multilevel Modic reactive endplate change seen. Bone marrow signal is otherwise within normal limits, and no suspicious osseous lesion is identified. Conus medullaris is unremarkable. Mild extra convex scoliosis upper lumbar junction. Levoconvex scoliosis lumbar spine centered at L3-4. Paraspinal soft tissues and visualized portions of the abdomen and pelvis are unremarkable. At T12-L1 minor annular bulging. The lateral facet arthropathy. Mild left neural foraminal narrowing. No central canal narrowing. At L1-2 there is disc desiccation with disc space narrowing. There is mild diffuse disc bulging with posterior disc osteophyte complex. Bilateral facet arthropathy with ligamentum flavum thickening. There is mild to moderate central canal narrowing. Mild right and moderate left neural foraminal narrowing. At L2-3 there is disc desiccation with disc space narrowing. Diffuse disc bulging with posterior disc osteophyte complex. Facet arthropathy seen, greater on the right. There is moderate central canal narrowing. Right lateral recess narrowing. Moderate right and mild left neural foraminal narrowing. At L3-4 there is disc desiccation with disc space narrowing. Diffuse disc bulging posterior disc bulge complex. Bilateral facet arthropathy, greater on the right. There is ligament flavum thickening. Mild central canal narrowing. Right lateral recess narrowing. Moderate right neural foraminal narrowing. At L4-5 there is disc desiccation with disc space narrowing. Mild diffuse disc bulging. Bilateral facet arthropathy, greater on the left. Ligament flavum thickening is seen. Moderate central canal narrowing. At L5-S1 there is disc desiccation with disc space narrowing. Mild diffuse disc bulging with posterior disc osteophyte complex. Bilateral facet arthropathy, greater on the left. Mild central canal narrowing. Moderate bilateral neural foraminal narrowing, greater on the left. IMPRESSION: No evidence of acute fracture or traumatic subluxation of the lumbar spine. Grade 1 anterolisthesis L1 on L2. Right lateral subluxation of L1 on L2 and L2 on L3. Left lateral subluxation of L4 on L5. Mild dextroconvex scoliosis upper lumbar junction. Levoconvex scoliosis lumbar spine centered at L3-4. Multilevel degenerative disc disease as described. Assessment & Plan Assessment & Plan (1) Scoliosis of lumbosacral region due to degenerative disease of spine in adult: Code(s): M41.57 - Other secondary scoliosis, lumbosacral region (2) Lumbar spondylosis: Code(s): M47.816 - Spondylosis without myelopathy or radiculopathy, lumbar region Plan Patient presented to the office today on referral from neuro spine center for consideration of left L1-L2 therapeutic injections. She us suffering with chronic lower back pain secondary to significant scoliosis and spondylosis. MRI reviewed, Neuro Surgery referral and recent office note reviewed. Patient has exhausted conservative therapy including OTC medications, PT and HEP. Discussed options for treatment including diagnostic interventional testing, epidural steroid injections, peripheral nerve stimulation with Sprint, RFA and more permanent neuromodulation. As per neuro spine center request, will schedule for Fluoroscopy guided left L2- L2 GATITO with local anesthetic. All questions and concerns have been answered and patient agrees with the plan. Follow up after injections and sooner if needed. Coding Level of Care Code New Pt Level 4 (91370) Diagnoses Scoliosis of lumbosacral region due to degenerative disease of spine in adult M41.57 Lumbar spondylosis M47.816
[2023-04-22 13:10] VITALS: BP 163/77; PULSE 78; O2SAT 98; BMI 29.1
== END 2023-04-22 14:08 | disposition home or self-care (01) ==
PROVIDERS: PCP Internal Medicine; Visit Provider Registered Nurse Emergency
DX: M41.57 Other secondary scoliosis, lumbosacral region (principal); M47.816 Spondylosis without myelopathy or radiculopathy, lumbar region
CPT/HCPCS: 99204

== ENCOUNTER → 2023-04-22 12:55 | Outpatient (BNVA) | payer MEDICARE, SELFPAY | PROVIDERS: PCP Internal Medicine; Visit Provider Registered Nurse Emergency | DX: M41.57 Other secondary scoliosis, lumbosacral region (principal); M47.816 Spondylosis without myelopathy or radiculopathy, lumbar region | CPT/HCPCS: 99202 ==

== ENCOUNTER 2023-05-04 06:26 | Outpatient (REF) | payer MEDICARE, SELFPAY ==
--- NOTE | ~2023-05-04 | FL_ITS ---
INDICATION: Intraoperative fluoroscopy. FLUOROSCOPY: Fluoroscopy Time: 0.4 minutes Dose/air kerma: 17.2 mGy Images saved: 3 FINDINGS: Multiple intraoperative fluoroscopic images are submitted during attempted procedure of the lumbar spine. Correlation with operative report. Evaluation is limited secondary to fluoroscopic technique. IMPRESSION: Intra-operative fluoroscopic imaging provided by radiology during attempted procedure of the lumbar spine. Please refer to operative note for further information.
== END 2023-05-04 06:27 | disposition home or self-care (01) ==
LOC: CF 06:26
PROVIDERS: Visit Provider Anesthesiology
DX: M47.26 Other spondylosis with radiculopathy, lumbar region (principal); M41.57 Other secondary scoliosis, lumbosacral region
CPT/HCPCS: 64483; J1100; Q9967

== ENCOUNTER 2023-05-04 15:06 | Outpatient (AMB) | payer MEDICARE, SELFPAY ==
--- NOTE | 2023-05-04 15:37 | MHC.OFFVIS ---
Intake Vital Signs 05/04/23 16:25 05/04/23 16:27 Height 5 ft 2 in 5 ft 2 in Weight 159 lb 3 oz 159 lb 3 oz BMI 29.1 29.1 BP 130/82 134/76 Blood Pressure Location Lt brachial Lt brachial Position Sitting Sitting Respiration 12 12 Pulse 79 80 Pulse Source Pulse Oximeter Pulse Oximeter Pulse Oximetry (%) 98 98 Oxygen Delivery Method Room Air Room Air Comment pre-op post-op Intake Visit Reasons: LEFT L1, L2 TFESI Allergies ciprofloxacin [Cipro] Allergy (Intermediate, Verified 05/04/23 16:28) Itching Biaxin Allergy (Severe, Uncoded 02/18/21 06:15) Dizziness [facility] Medical History (Updated 04/22/23 @ 13:09 by Dorys Reid APRN, FAMILY SERVICES COORDINATOR) Abnormal brain MRI Meningioma of orbit Diplopia Ocular myasthenia gravis Cervicalgia Cervical spondylosis Ptosis Anemia Stress incontinence Hayfever Osteoarthritis Lumbar disc disease GERD (gastroesophageal reflux disease) Arthritis of left knee Surgical History Hx of esophagogastroduodenoscopy S/P D&C (status post dilation and curettage) History of total left knee replacement (TKR) (02/18/21) History of cataract extraction Hx of appendectomy Hx of tonsillectomy Family History Mother Pancreatic cancer Ovarian cancer Father Heart attack Pancreatic cancer Social History Household Members: Spouse Household Members Other:: 3 Housing: House Are you a primary career and transition teacher to a significant other at home: No Do you presently have visiting nurse or other home services: No Alcohol intake: never Patient Tobacco Use Status: Former Tobacco user Quit Date: Tobacco use type: Cigarette Second Hand Smoke Exposure: No service: No Current occupational status: retired Current occupation: rt handed Physical Exam Vital Signs: Last Vital Signs Pulse 80 05/04/23 16:27 Resp 12 05/04/23 16:27 BP 134/76 05/04/23 16:27 Pulse Ox 98 05/04/23 16:27 Oxygen Delivery Method Room Air 05/04/23 16:27 BMI result Body Mass Index 29.1 Assessment & Plan Assessment & Plan (1) Scoliosis of lumbosacral region due to degenerative disease of spine in adult: Code(s): M41.57 - Other secondary scoliosis, lumbosacral region (2) Lumbar spondylosis: Code(s): M47.816 - Spondylosis without myelopathy or radiculopathy, lumbar region Plan: Attempt at L1-L2 left transforaminal epidural steroid injection Informed consent was thoroughly explained to the patient before the procedure.? The patient came to the operating room.? She was positioned prone on operating table with a pillow under his abdomen.? Time-out was performed delineating correct site and side of the procedure, nature of the injection, name and date of of the patient. The lower back of the patient was prepped with ChloraPrep and draped with sterile utility towels.? C-arm was brought over the operating field sq picture of the L1 vertebra was attempted to be delineated on the screen. To see the sq picture of the L1 vertebra I had to rotate the C-arm ipsilateral to the left 25 degrees. The quality of the images was very poor. The patient had significant osteoporosis. She has abnormal locations of the spinal vertebras which are not only rotated one against the other but also shifted sideways creating lateral listhesis. Large osteophytes also do not improve the view. Tilting C-arm for the to the left oblique view was attempted to delineate the most prominent silhouette of the left pedicle of L1 vertebra. After numerous attempts the presumable silhouette of the left L1 pedicle was demonstrated on the screen 2 mm below the level of the lowest point of the pedicle projection to the skin injection of the local anesthetic was performed and skin wheal was raised. After that 22 gauge 5 in needle was inserted through the skin wheal and started to advance to presumable position of the foramina on oblique and lateral views. When on the lateral view the tip of the needle was in the most superior and posterior portion of the foramina the projection of the C-arm was turned to the presumable sq image. To my surprise on the sq image I saw a tip of the needle position against the center of the vertebra. The aspiration of the needle however did not result in any CSF or blood. At this moment the procedure was aborted no medications of any kind were injected. Upon completion of the procedure sterile Band-Aids were applied. Patient tolerated procedure well he was taken outside of the operating room where she recovered uneventfully.? She went home without immediate complications. Plan Patient presented to the office today on referral from neuro spine center for consideration of left L1-L2 therapeutic injections. She us suffering with chronic lower back pain secondary to significant scoliosis and spondylosis. MRI reviewed, Neuro Surgery referral and recent office note reviewed. Patient has exhausted conservative therapy including OTC medications, PT and HEP. Discussed options for treatment including diagnostic interventional testing, epidural steroid injections, peripheral nerve stimulation with Sprint, RFA and more permanent neuromodulation. As per neuro spine center request, will schedule for Fluoroscopy guided left L2-L2 GATITO with local anesthetic. All questions and concerns have been answered and patient agrees with the plan. Follow up after injections and sooner if needed. Orders: Orders FL guidance in treatment room 05/04/23 M41.57 - Other secondary scoliosis, lumbosacral region Coding Level of Care Code Procedure Only Diagnoses Scoliosis of lumbosacral region due to degenerative disease of spine in adult M41.57 Lumbar spondylosis M47.816
[2023-05-04 16:25] VITALS: BP 130/82; PULSE 79; RESP 12; O2SAT 98; BMI 29.1
[2023-05-04 16:27] VITALS: BP 134/76; PULSE 80; RESP 12; O2SAT 98; BMI 29.1
== END 2023-05-04 16:07 | disposition home or self-care (01) ==
LOC: HO.PMCPRC 15:06
PROVIDERS: PCP Internal Medicine; Visit Provider Anesthesiology
DX: M47.25 Other spondylosis with radiculopathy, thoracolumbar region (principal)
CPT/HCPCS: 64483

== ENCOUNTER 2023-05-10 11:32 | Outpatient (AMB) | payer MEDICARE, SELFPAY ==
--- NOTE | 2023-05-10 11:33 | MHC.OFFVIS ---
Intake Vital Signs 05/10/23 11:39 Height 5 ft 2 in Weight 159 lb BMI 29.1 BP 134/80 Blood Pressure Location Lt brachial Position Sitting Respiration 16 Pulse 72 Pulse Source Pulse Oximeter Pulse Oximetry (%) 98 Oxygen Delivery Method Room Air Intake Visit Reasons: LEFT L1, L2 TFESI/05/04/23 Intake Note: Patient comes in for post-op appointment. Reports pain 2/10. Allergies ciprofloxacin [Cipro] Allergy (Intermediate, Verified 05/10/23 11:38) Itching Biaxin Allergy (Severe, Uncoded 02/18/21 06:15) Dizziness HPI HPI Comments History of Present Illness Details Leni is a very pleasant 78 year old female who presents to the office today, accompanied by her , for evaluation and management of her chronic lower back pain. I attempted to perform L1-L2 transforaminal epidural steroid injection on the left. The procedure was extremely difficult to perform. The details of the procedure description are in my procedural note. Today the patient came and I explained her her choices. Unfortunately I do not believe that with her scoliosis and spondylosis SCS would be easy endeavor. I personally would not be interested in performing a trial of SCS for this patient. She has severe rotational and significant angulation deformity of the spinal column. However I explained to her that I would not mind to try intrathecal drug delivery system pain pump. I explained to her that she needs to go for psychological evaluation before we try pain pump. I also explained to her that I might consider to admit her to our chronic opioid program. She also can ask her primary care physician to put her on moderate doses of the opioid medications orally. Prior: Patient reports left lower back pain for last 1.5 years, denies inciting injury. She reports pain into the hip, denies pain down either leg. Denies numbness, tingling, burning pain of lower extremities. She has taken OTC medication and completed PT without improvement in her pain. She does HEP but pain persists. Denies red flag symptoms including new loss of bowel, bladder or saddle anesthesia. Pain today is rated as 1/10, constant, worse throughout the day. In terms of muscle damage condition is described as aching, stabbing, sharp. Pain is negatively impacting patients enjoyment of life, general activity, mood, normal work, recreational activities, relationships with people and walking. She currently lives in [address], needs stair chair lift to access the upper floor. They are in the process of cleaning out the house so they can move to a single story home. Her condition is significantly limiting her function, mobility and activities of daily living. reports she has fallen a couple times over the last several months, currently using rollator walker for stability/support. [facility] Medical History (Updated 05/10/23 @ 12:42 by Gustavo Anderson MD) Abnormal brain MRI Meningioma of orbit Diplopia Ocular myasthenia gravis Cervicalgia Cervical spondylosis Ptosis Anemia Stress incontinence Hayfever Osteoarthritis Lumbar disc disease GERD (gastroesophageal reflux disease) Arthritis of left knee Surgical History Hx of esophagogastroduodenoscopy S/P D&C (status post dilation and curettage) History of total left knee replacement (TKR) (02/18/21) History of cataract extraction Hx of appendectomy Hx of tonsillectomy Family History Mother Pancreatic cancer Ovarian cancer Father Heart attack Pancreatic cancer Social History Household Members: Spouse Household Members Other:: 3 Housing: House Are you a primary childcare attendant to a significant other at home: No Do you presently have visiting nurse or other home services: No Alcohol intake: never Patient Tobacco Use Status: Former Tobacco user Quit Date: Tobacco use type: Cigarette Second Hand Smoke Exposure: No service: No Current occupational status: retired Current occupation: rt handed Review of Systems Const All systems reviewed & are unremarkable except as noted in HPI and below Physical Exam Vital Signs: Last Vital Signs Pulse 72 05/10/23 11:39 Resp 16 05/10/23 11:39 BP 134/80 05/10/23 11:39 Pulse Ox 98 05/10/23 11:39 Oxygen Delivery Method Room Air 05/10/23 11:39 BMI result Body Mass Index 29.1 General: awake, alert, oriented. Answers questions appropriately. Fully engaged in examination. Skin: warm, dry, intact HEENT: Normocephalic. Hearing intact. Cardiac: External chest normal in appearance. Respiratory: No cough, audible wheezing or stridor. Abdomen: without gross distension. MS: significant curvature of the spine Able to transition from sit to stand unassisted. Ambulates with bilaterally normal heel strike and toe off Nontender to palpation over midline lumbar vertebrae SLR negative bilaterally no pain with forward flexion, unable to extend BLE strength 5/5 Neurological: Oriented to person, place, time and situation. Thought process intact. Ambulates with rollator walker Psychiatric: Appropriate mood and affect. Good judgment and insight. Assessment & Plan Assessment & Plan (1) Scoliosis of lumbosacral region due to degenerative disease of spine in adult: Code(s): M41.57 - Other secondary scoliosis, lumbosacral region Plan: 1 (2) Lumbar spondylosis: Code(s): M47.816 - Spondylosis without myelopathy or radiculopathy, lumbar region Plan: As opioid naive patient she would be a good candidate for intrathecal drug delivery system pain pump. Those could be Prialt as well as opioids. I do not think bupivacaine is a good option for this patient because she is suffering from myasthenia gravis. I do not think she would be a good candidate for spinal cord stimulator. She might be appropriate candidate for chronic opioid oral program, she seemed to be to be very responsible person however this will impose certain limitations on her life because she would need to come here for frequent pill counts, possible random pill counts, possible random UDS and possible regular UDS. Alternatively she may consider to request primary care physician to us her small doses of the opioid medications. The roles of the opioid administration might be more relaxed than in it is in our office. (3) Chronic pain syndrome: Code(s): G89.4 - Chronic pain syndrome Plan: 1. (4) Myasthenia gravis: Code(s): G70.00 - Myasthenia gravis without (acute) exacerbation Plan: 1 Patient Instructions: I here by testify that I spent 35 minutes in conversation with this patient as well as evaluating her prior records, evaluating prior images and organizing this note. Coding Level of Care Code Est Pt Level 4 (67020) Diagnoses Scoliosis of lumbosacral region due to degenerative disease of spine in adult M41.57 Lumbar spondylosis M47.816 Chronic pain syndrome G89.4 Myasthenia gravis G70.00
[2023-05-10 11:39] VITALS: BP 134/80; PULSE 72; RESP 16; O2SAT 98; BMI 29.1
== END 2023-05-10 14:00 | disposition home or self-care (01) ==
PROVIDERS: PCP Internal Medicine; Visit Provider Anesthesiology
DX: G89.4 Chronic pain syndrome (principal); M41.57 Other secondary scoliosis, lumbosacral region; M47.816 Spondylosis without myelopathy or radiculopathy, lumbar region; G70.00 Myasthenia gravis without (acute) exacerbation
CPT/HCPCS: 99214

== ENCOUNTER → 2023-05-10 11:32 | Outpatient (BNVA) | payer MEDICARE, SELFPAY | PROVIDERS: PCP Internal Medicine; Visit Provider Anesthesiology | DX: M47.816 Spondylosis without myelopathy or radiculopathy, lumbar region (principal); M41.57 Other secondary scoliosis, lumbosacral region; G89.4 Chronic pain syndrome; G70.00 Myasthenia gravis without (acute) exacerbation | CPT/HCPCS: 99212 ==

== ENCOUNTER 2023-07-02 12:52 | Outpatient (AMB) | payer MEDICARE, SELFPAY ==
--- NOTE | 2023-07-02 12:53 | MHC.OFFVIS ---
Intake Intake Visit Reasons: Follow up-Conf Intake Note: Pt presents for follow up for cervicalgia via telehealth. Information Analyst Required: No Allergies ciprofloxacin [Cipro] Allergy (Intermediate, Verified 07/02/23 12:53) Itching Biaxin Allergy (Severe, Uncoded 07/02/23 12:53) Dizziness Medication List - Last Reconciled 07/02/23 by Haritha Green MD acetaminophen 650 mg (2 x 325 mg) PO Q6H PRN 30 days [id number] C-E-herbal 1,250 mcg-50 mg -67.5 mg-15 mg tabs PO calcium carbonate-vitamin D2 600 mg calcium- 200 unit 1 tab PO DAILY multivitamin 1 tab PO DAILY omeprazole 40 mg PO DAILY pyridostigmine bromide (Mestinon) 90 mg (1.5 x 60 mg) PO TID quinine-vitamin E caps PO HPI HPI Comments History of Present Illness Details 78y/o female calls for follow up of seronegative ocular myasthenia.she noticed worsening. she reports droopy eyelids for 4 years now. It fluctuates and worsens in the evenings. its worse in her right eye.she also has double vision worsens when she is fatigued. she denies speech difficulty or any problems with swallowing she also has lumbar spondylosis and has gait issues related to that. she uses a walker and had some falls. she has a diagnosis of peripheral neuropathy. [facility] Medical History Abnormal brain MRI Meningioma of orbit Diplopia Ocular myasthenia gravis Cervicalgia Cervical spondylosis Ptosis Anemia Stress incontinence Hayfever Osteoarthritis Lumbar disc disease GERD (gastroesophageal reflux disease) Arthritis of left knee Surgical History Hx of esophagogastroduodenoscopy S/P D&C (status post dilation and curettage) History of total left knee replacement (TKR) (02/18/21) History of cataract extraction Hx of appendectomy Hx of tonsillectomy Family History Mother Pancreatic cancer Ovarian cancer Father Heart attack Pancreatic cancer Social History Household Members: Spouse Household Members Other:: 3 Housing: House Are you a primary housekeeper caregiver to a significant other at home: No Do you presently have visiting nurse or other home services: No Alcohol intake: never Patient Tobacco Use Status: Former Tobacco user Quit Date: Tobacco use type: Cigarette Second Hand Smoke Exposure: No service: No Current occupational status: retired Current occupation: rt handed Results Reviewed Results Reviewed: MRI Orbits- Unchanged age related cerebral atrophy and focal ischemic white matter lesions compatible with microangiopathy. 2. No acute cerebral infarction is seen. 3. No interval change in size of the midline anterior cranial fossa extra-axial mass lesion, compatible with stable meningioma. No evidence of impingement of extraocular muscles or optic chiasm displacement could be seen. 4. No evidence of intracranial hemorrhage. Assessment & Plan Assessment & Plan (1) Ocular myasthenia gravis: Code(s): G70.00 - Myasthenia gravis without (acute) exacerbation (2) Cervicalgia: Code(s): M54.2 - Cervicalgia (3) Abnormal brain MRI: Comment: anterior cranial fossa lesion - extra axial Code(s): R90.89 - Other abnormal findings on diagnostic imaging of central nervous system Plan Anti MUSK antibody was negative Pyridostigmine 60mg tid MRI brain with kayla and orbits - reviewed- Right anterior cranial fossa meningioma is seen without invasion into the orbits or displacement of extraocular muscle. Medications: Changed From pyridostigmine bromide (Mestinon) 60 mg PO TID 90 tabs 3RF To pyridostigmine bromide (Mestinon) 90 mg (1.5 x 60 mg) PO TID 150 tabs 3RF Telehealth Telehealth Location of provider rendering services: practice address Location of patient: address on file Patient Identification confirmed using: Name, : Yes Telehealth method: voice only Patient verbally consented to treatment: Yes Patient verbally consented to billing insurance company: Yes Patient informed of any privacy concerns related to visit: Yes Minutes spent on Phone/Video with Pt.: 16 Coding Level of Care Code Tele Est Pt Level 4 (92247) Diagnoses Ocular myasthenia gravis G70.00 Cervicalgia M54.2 Abnormal brain MRI R90.89
== END 2023-07-02 14:46 | disposition home or self-care (01) ==
LOC: HO.HSMS 12:52
PROVIDERS: PCP Internal Medicine; Visit Provider Psychiatry & Neurology Neurology
DX: G70.00 Myasthenia gravis without (acute) exacerbation (principal); M54.2 Cervicalgia; R90.89 Other abnormal findings on diagnostic imaging of central nervous system
CPT/HCPCS: 99442

== ENCOUNTER → 2023-07-02 12:52 | Outpatient (BNVA) | payer MEDICARE, SELFPAY | PROVIDERS: PCP Internal Medicine; Visit Provider Psychiatry & Neurology Neurology ==

== ENCOUNTER 2023-08-09 12:54 | Outpatient (REF) | payer MEDICARE, SELFPAY ==
[2023-08-09 16:12] LABS: MANUAL DIFF FLAG NO
[2023-08-09 16:29] LABS: Basophils Absolute Auto 0.1 X10*3/uL (0.0-0.2); Basophils Percent Auto 0.9 % (0-2); Eosinophils Absolute Auto 0.1 X10*3/uL (0.0-0.4); Eosinophils Percent Auto 1.2 % (0-4); Hematocrit 37.6 % (37.0-47.0); Hemoglobin 11.9 g/dl (12.0-16.0); Imm Gran Abs Auto 0.02 X10*3/uL (0.00-0.03); Imm Gran Pct Auto 0.3 % (0.0-0.4); Lymphocytes Absolute Auto 1.6 X10*3/uL (1.2-4.9); Lymphocytes Percent Auto 26.7 % (20-40); Mean Corpuscular HGB Conc 31.6 g/dl (31.0-35.0); Mean Corpuscular Hemoglobin 29.9 pg (27.0-33.0); Mean Corpuscular Volume 94.5 fL (80.0-98.0); Mean Platelet Volume 10.7 fL (9.4-12.3); Monocytes Absolute Auto 0.4 X10*3/uL (0.1-1.2); Monocytes Percent Auto 7.5 % (2-11); Neutrophils Absolute Auto 3.7 x10*3/uL (2.0-8.3); Neutrophils Percent Auto 63.4 % (45-73); Platelet Count 303 X10*3/uL (160-400); Red Blood Count 3.98 X10*6/uL (4.20-5.50); Red Cell Distribution Width 13.5 % (11.0-16.0); White Blood Count 5.9 X10*3/uL (4.8-10.8)
[2023-08-09 17:12] LABS: Alanine Aminotransferase 15 U/L (0-31); Albumin Level 4.2 g/dL (3.5-5.0); Alkaline Phosphatase 54 U/L (39-117); Anion Gap 14 (12-20); Aspartate Amino Transferase 21 U/L (5-31); Bilirubin Total 0.4 mg/dL (0.0-1.0); Blood Urea Nitrogen 12 mg/dL (9-16); Calcium 9.7 mg/dL (8.4-10.2); Carbon Dioxide 25 mmol/L (22-29); Chloride 108 mmol/L (96-108); Estimated Glomerular Filt Rate > 60; Glucose Random 92 mg/dL (60-115); Potassium 4.3 mmol/L (3.3-5.1); Sodium 143 mmol/L (135-145); Total Protein 7.3 g/dL (6.5-8.0)
[2023-08-09 17:24] LABS: Folate 14.7 ng/mL (> or = 4.0); Vitamin B12 481 pg/mL (200-900)
[2023-08-09 17:28] LABS: Vitamin D 25-OH Total 66.5 ng/mL (>30)
== END 2023-08-09 12:55 | disposition home or self-care (01) ==
LOC: HO.HMGCLDS 12:54
PROVIDERS: PCP Internal Medicine; Visit Provider Internal Medicine
DX: K21.9 Gastro-esophageal reflux disease without esophagitis (principal); G62.9 Polyneuropathy, unspecified; G70.00 Myasthenia gravis without (acute) exacerbation
CPT/HCPCS: 36415; 80053; 82306; 82607; 82746; 83735; 85025

== ENCOUNTER 2023-09-21 13:04 | Outpatient (AMB) | payer MEDICARE, SELFPAY ==
--- NOTE | 2023-09-21 13:05 | MHC.OFFVIS ---
Intake Visit Reasons: Follow Up Intake Note: Pt presents for 3 month follow up for seronegative ocular myasthenia. 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 Allergies ciprofloxacin [Cipro] Allergy (Intermediate, Verified 09/21/23 13:06) Itching Biaxin Allergy (Severe, Uncoded 09/21/23 13:06) Dizziness Medication List - Last Reconciled 09/21/23 by Haritha Green MD acetaminophen 650 mg (2 x 325 mg) PO Q6H PRN 30 days [id number] C-E-herbal 1,250 mcg-50 mg -67.5 mg-15 mg tabs PO calcium carbonate-vitamin D2 600 mg calcium- 200 unit 1 tab PO DAILY multivitamin 1 tab PO DAILY omeprazole 40 mg PO DAILY pyridostigmine bromide (Mestinon) 90 mg (1.5 x 60 mg) PO TID quinine-vitamin E caps PO HPI Comments Details: 78y/o female calls for follow up of seronegative ocular myasthenia.she noticed worsening when she stopped pyridostigmine for 2 days . she reports droopy eyelids for 4 years now. It fluctuates and worsens in the evenings. its worse in her right eye.she also has double vision worsens when she is fatigued. she denies speech difficulty or any problems with swallowing she also has lumbar spondylosis and has gait issues related to that. she uses a walker and had some falls. she has a diagnosis of peripheral neuropathy. [facility] Medical History Abnormal brain MRI Meningioma of orbit Diplopia Ocular myasthenia gravis Cervicalgia Cervical spondylosis Ptosis Anemia Stress incontinence Hayfever Osteoarthritis Lumbar disc disease GERD (gastroesophageal reflux disease) Arthritis of left knee Surgical History Hx of esophagogastroduodenoscopy S/P D&C (status post dilation and curettage) History of total left knee replacement (TKR) (02/18/21) History of cataract extraction Hx of appendectomy Hx of tonsillectomy Family History Mother Pancreatic cancer Ovarian cancer Father Heart attack Pancreatic cancer Social History Household Members: Spouse Household Members Other:: 3 Housing: House Are you a primary health care attorney to a significant other at home: No Do you presently have visiting nurse or other home services: No Alcohol intake: never Patient Tobacco Use Status: Former Tobacco user Tobacco use type: Cigarette Second Hand Smoke Exposure: No service: No Current occupational status: retired Current occupation: rt handed Physical Exam Const General: cooperative Orientation/consciousness: patient oriented x3 Neuro General: patient oriented x3 Telehealth Telehealth Telehealth Platform: Telephone Location of provider rendering services: practice address Location of patient: address on file Patient Identification confirmed using: Name, : Yes Telehealth method: voice only Patient verbally consented to treatment: Yes Patient verbally consented to billing insurance company: Yes Patient informed of any privacy concerns related to visit: Yes Assessment & Plan Assessment & Plan (1) Ocular myasthenia gravis: Code(s): G70.00 - Myasthenia gravis without (acute) exacerbation Category: Medical (2) Cervicalgia: Code(s): M54.2 - Cervicalgia Category: Medical (3) Abnormal brain MRI: Comment: anterior cranial fossa lesion - extra axial Code(s): R90.89 - Other abnormal findings on diagnostic imaging of central nervous system Category: Medical (4) Lumbar spondylosis: Code(s): M47.816 - Spondylosis without myelopathy or radiculopathy, lumbar region Category: Medical (5) Chronic pain syndrome: Code(s): G89.4 - Chronic pain syndrome Category: Medical Plan Anti MUSK antibody was negative Pyridostigmine 90mg tid- F/u with Dr Hodges MRI brain with kayla and orbits - reviewed- Right anterior cranial fossa meningioma is seen without invasion into the orbits or displacement of extraocular muscle. Coding Level of Care Code Tele Est Pt Level 4 (52635) Diagnoses Ocular myasthenia gravis G70.00 Cervicalgia M54.2 Abnormal brain MRI R90.89 Lumbar spondylosis M47.816 Chronic pain syndrome G89.4
== END 2023-09-21 16:00 ==
LOC: HO.HSMS 13:04
PROVIDERS: PCP Internal Medicine; Visit Provider Psychiatry & Neurology Neurology
DX: G70.00 Myasthenia gravis without (acute) exacerbation (principal); M54.2 Cervicalgia; D32.0 Benign neoplasm of cerebral meninges; M47.816 Spondylosis without myelopathy or radiculopathy, lumbar region; G89.4 Chronic pain syndrome
CPT/HCPCS: 99442

== ENCOUNTER → 2023-09-21 13:04 | Outpatient (BNVA) | payer MEDICARE, SELFPAY | PROVIDERS: PCP Internal Medicine; Visit Provider Psychiatry & Neurology Neurology ==

== ENCOUNTER 2023-12-09 10:57 | Outpatient (AMB) | payer MEDICARE, SELFPAY ==
--- NOTE | 2023-12-09 11:09 | MHC.OFFVIS ---
Vital Signs 12/09/23 11:11 Height 5 ft 2 in Weight 154 lb 4 oz BMI 28.2 BP 164/88 H Blood Pressure Location Rt brachial Position Sitting Respiration 17 Pulse 66 Pulse Source Pulse Oximeter Pulse Oximetry (%) 98 Oxygen Delivery Method Room Air Intake Visit Reasons: Follow up Intake Note: Pt presents to the office for a 2 month follow up for seronegative ocular myasthenia. Bumboater Required: No Allergies ciprofloxacin [Cipro] Allergy (Intermediate, Verified 12/09/23 11:10) Itching Biaxin Allergy (Severe, Uncoded 12/09/23 11:10) Dizziness Medication List - Last Reconciled 12/09/23 by Haritha Green MD acetaminophen 650 mg (2 x 325 mg) PO Q6H PRN 30 days [id number]-[id number] C-E-herbal 1,250 mcg-50 mg -67.5 mg-15 mg tabs PO calcium carbonate-vitamin D2 600 mg calcium- 200 unit 1 tab PO DAILY multivitamin 1 tab PO DAILY omeprazole 40 mg PO DAILY pyridostigmine bromide (Mestinon) 90 mg (1.5 x 60 mg) PO TID quinine-vitamin E caps PO HPI Comments Details: 78y/o female comes for follow up of seronegative ocular myasthenia. she reports droopy eyelids for 4 years now. It fluctuates and worsens in the evenings. its worse in her right eye.she also has double vision worsens when she is fatigued. she denies speech difficulty or any problems with swallowing she also has lumbar spondylosis and has gait issues related to that. she uses a walker and had some falls. she has a diagnosis of peripheral neuropathy. [facility] Medical History Abnormal brain MRI Meningioma of orbit Diplopia Ocular myasthenia gravis Cervicalgia Cervical spondylosis Ptosis Anemia Stress incontinence Hayfever Osteoarthritis Lumbar disc disease GERD (gastroesophageal reflux disease) Arthritis of left knee Surgical History Hx of esophagogastroduodenoscopy S/P D&C (status post dilation and curettage) History of total left knee replacement (TKR) (02/18/21) History of cataract extraction Hx of appendectomy Hx of tonsillectomy Family History Mother Pancreatic cancer Ovarian cancer Father Heart attack Pancreatic cancer Social History Household Members: Spouse Household Members Other:: 3 Housing: House Are you a primary medicare sales representative to a significant other at home: No Do you presently have visiting nurse or other home services: No Alcohol intake: never Patient Tobacco Use Status: Former Tobacco user Tobacco use type: Cigarette Second Hand Smoke Exposure: No service: No Current occupational status: retired Current occupation: rt handed Physical Exam Vital Signs: Last Vital Signs Pulse 66 12/09/23 11:11 Resp 17 12/09/23 11:11 BP 164/88 H 12/09/23 11:11 Pulse Ox 98 12/09/23 11:11 Oxygen Delivery Method Room Air 12/09/23 11:11 BMI result Body Mass Index 28.2 Const General: cooperative; No comfortable Nutritional Appearance: overweight Orientation/consciousness: patient oriented x3 Eyes Pupils: Equal, round and reactive pupils present Neuro Other: Severe ptosis bilateral- no upgaze - better than last visit kyphosis - slow using walker General: patient oriented x3, tone normal and moves all extremities Cranial nerves: Yes Equal, round and reactive pupils present, Yes Nystagmus not present, Yes Normal facial strength present and Yes Midline tongue present Cognition (Neuro): normal cognition Gait exam (Neuro): Antalgic gait present Motor exam (neuro): 5/5 motor strength present throughout and Normal motor muscle tone present throughout Deep tendon reflexes (DTR's): Right triceps reflex intensity grade: 3+, Left triceps reflex intensity grade: 3+, Rt Biceps (C5, C6): 3+, Left biceps reflex intensity grade: 3+, Right brachioradialis reflex intensity grade: 3+, Left brachioradialis reflex intensity grade: 3+, Right patellar reflex intensity grade: 2+ and Left patellar reflex intensity grade: 2+ Coordination: [id number] test normal Assessment & Plan Assessment & Plan (1) Ocular myasthenia gravis: Code(s): G70.00 - Myasthenia gravis without (acute) exacerbation Category: Medical (2) Cervicalgia: Code(s): M54.2 - Cervicalgia Category: Medical (3) Abnormal brain MRI: Comment: anterior cranial fossa lesion - extra axial Code(s): R90.89 - Other abnormal findings on diagnostic imaging of central nervous system Category: Medical (4) Lumbar spondylosis: Code(s): M47.816 - Spondylosis without myelopathy or radiculopathy, lumbar region Category: Medical (5) Chronic pain syndrome: Code(s): G89.4 - Chronic pain syndrome Category: Medical Plan Anti MUSK antibody was negative Increase Pyridostigmine 120mg tid- I will trial her on imuran 50mg qd will consider IVIg or vygart CT chest for thymus eval F/u with Dr Hodges MRI brain with kayla and orbits - reviewed- Right anterior cranial fossa meningioma is seen without invasion into the orbits or displacement of extraocular muscle. Orders: Orders CT chest wo IV con Today E32.9 - Disease of thymus, unspecified, G70.00 - Myasthenia gravis without (acute) exacerbation Complete Blood Count Auto Diff Today G70.00 - Myasthenia gravis without (acute) exacerbation Comprehensive Met. Panel Today G70.00 - Myasthenia gravis without (acute) exacerbation Medications: New azathioprine (Imuran) 50 mg PO DAILY 30 tabs 6RF Changed From pyridostigmine bromide (Mestinon) 90 mg (1.5 x 60 mg) PO TID 150 tabs 3RF To pyridostigmine bromide (Mestinon) 120 mg (2 x 60 mg) PO TID 180 tabs 3RF Coding Level of Care Code Est Pt Level 4 (85275) Complex EM visit Add On G2211 Diagnoses Ocular myasthenia gravis G70.00 Cervicalgia M54.2 Abnormal brain MRI R90.89 Lumbar spondylosis M47.816 Chronic pain syndrome G89.4
[2023-12-09 11:11] VITALS: BP 164/88; PULSE 66; RESP 17; O2SAT 98; BMI 28.2
== END 2023-12-09 11:37 | disposition home or self-care (01) ==
PROVIDERS: PCP Internal Medicine; Visit Provider Psychiatry & Neurology Neurology
DX: G70.00 Myasthenia gravis without (acute) exacerbation (principal); M54.2 Cervicalgia; R90.89 Other abnormal findings on diagnostic imaging of central nervous system; M47.816 Spondylosis without myelopathy or radiculopathy, lumbar region; G89.4 Chronic pain syndrome
CPT/HCPCS: 99214; G2211

== ENCOUNTER → 2023-12-09 10:57 | Outpatient (BNVA) | payer MEDICARE, SELFPAY | PROVIDERS: PCP Internal Medicine; Visit Provider Psychiatry & Neurology Neurology ==

== ENCOUNTER 2023-12-09 11:48 | Outpatient (REF) | payer MEDICARE, SELFPAY ==
[2023-12-09 17:46] LABS: MANUAL DIFF FLAG NO
[2023-12-09 18:04] LABS: Basophils Absolute Auto 0.1 X10*3/uL (0.0-0.2); Basophils Percent Auto 0.9 % (0-2); Eosinophils Absolute Auto 0.1 X10*3/uL (0.0-0.4); Eosinophils Percent Auto 0.9 % (0-4); Hematocrit 40.2 % (37.0-47.0); Hemoglobin 12.9 g/dl (12.0-16.0); Imm Gran Abs Auto 0.01 X10*3/uL (0.00-0.03); Imm Gran Pct Auto 0.2 % (0.0-0.4); Lymphocytes Absolute Auto 1.3 X10*3/uL (1.2-4.9); Lymphocytes Percent Auto 21.2 % (20-40); Mean Corpuscular HGB Conc 32.1 g/dl (31.0-35.0); Mean Corpuscular Volume 93.5 fL (80.0-98.0); Mean Platelet Volume 10.5 fL (9.4-12.3); Monocytes Absolute Auto 0.5 X10*3/uL (0.1-1.2); Monocytes Percent Auto 7.9 % (2-11); Neutrophils Absolute Auto 4.4 x10*3/uL (2.0-8.3); Neutrophils Percent Auto 68.9 % (45-73); Platelet Count 316 X10*3/uL (160-400); Red Cell Distribution Width 13.9 % (11.0-16.0); White Blood Count 6.3 X10*3/uL (4.8-10.8)
[2023-12-09 18:22] LABS: Alanine Aminotransferase 13 U/L (0-31); Albumin Level 4.3 g/dL (3.5-5.0); Alkaline Phosphatase 49 U/L (39-117); Anion Gap 11 (12-20); Aspartate Amino Transferase 19 U/L (5-31); Bilirubin Total 0.3 mg/dL (0.0-1.0); Blood Urea Nitrogen 11 mg/dL (9-16); Calcium 10.1 mg/dL (8.4-10.2); Carbon Dioxide 29 mmol/L (22-29); Chloride 106 mmol/L (96-108); Estimated Glomerular Filt Rate > 60; Glucose Random 102 mg/dL (60-115); Potassium 4.5 mmol/L (3.3-5.1); Sodium 141 mmol/L (135-145); Total Protein 7.2 g/dL (6.5-8.0)
== END 2023-12-09 11:49 | disposition home or self-care (01) ==
LOC: HO.HKASLDS 11:48
PROVIDERS: Visit Provider Psychiatry & Neurology Neurology
DX: G70.00 Myasthenia gravis without (acute) exacerbation (principal); M54.2 Cervicalgia; R90.89 Other abnormal findings on diagnostic imaging of central nervous system; M47.816 Spondylosis without myelopathy or radiculopathy, lumbar region; G89.4 Chronic pain syndrome; E32.9 Disease of thymus, unspecified
CPT/HCPCS: 36415; 80053; 85025; 99212

== ENCOUNTER 2023-12-28 12:38 | Outpatient (REF) | payer MEDICARE, SELFPAY ==
--- NOTE | ~2023-12-28 | MM_ITS ---
EXAMINATION: MM SCREENING DIGITAL BREAST TOMOSYNTHESIS, BILATERAL CLINICAL INFORMATION: Screening. Asymptomatic. COMPARISON: Mammography: Comparison is made with available priors TECHNIQUE: Digital breast mammography with tomosynthesis is performed in both the craniocaudal and mediolateral oblique views along with computer-aided detection (CAD). FINDINGS: There are scattered areas of fibroglandular density (ACR BI-RADS breast composition Category b). There are no significant masses, abnormal calcifications, or other abnormalities. MM/MM tomosynthesis screening BI IMPRESSION: No mammographic evidence of malignancy. ASSESSMENT: BI-RADS BI-RADS 1 - Negative RECOMMENDATION: Routine annual mammography screening. 1 year F/U This examination should not preclude the clinical evaluation of a suspicious palpable abnormality. This patient's information was entered into a reminder system with a target due date for their next mammogram. Electronically signed by: Ann Doe DO 01/07/2024 08:14 PM EDT
== END 2023-12-28 12:39 | disposition home or self-care (01) ==
LOC: HO.MAMMO 12:38
PROVIDERS: PCP Internal Medicine; Visit Provider Internal Medicine
DX: Z12.31 Encounter for screening mammogram for malignant neoplasm of breast (principal)
CPT/HCPCS: 77063; 77067

== ENCOUNTER → 2023-12-28 13:15 | Outpatient (BNV) | payer MEDICARE, SELFPAY | PROVIDERS: PCP Internal Medicine; Visit Provider Internal Medicine | DX: Z12.31 Encounter for screening mammogram for malignant neoplasm of breast (principal) | CPT/HCPCS: 77063; 77067 ==

== ENCOUNTER 2024-01-31 16:52 | Outpatient (REF) | payer MEDICARE, SELFPAY | END 2024-01-31 16:53 | disposition home or self-care (01) | LOC: HO.CT 16:52 | PROVIDERS: PCP Internal Medicine; Visit Provider Psychiatry & Neurology Neurology | DX: G70.00 Myasthenia gravis without (acute) exacerbation (principal) | CPT/HCPCS: 71250 ==

== ENCOUNTER → 2024-01-31 16:54 | Outpatient (BNV) | payer MEDICARE, SELFPAY | PROVIDERS: PCP Internal Medicine; Visit Provider Radiology Diagnostic Radiology | DX: G70.00 Myasthenia gravis without (acute) exacerbation (principal) | CPT/HCPCS: 71250 ==

== ENCOUNTER 2024-02-10 16:26 | Emergency (ER) | payer MEDICARE, SELFPAY ==
--- NOTE | ~2024-02-10 | CT_ITS ---
EXAMINATION: CT HEAD WITHOUT CONTRAST CT CERVICAL SPINE WITHOUT CONTRAST CLINICAL INFORMATION: Fall. COMPARISON: Brain MRI from 04/20/2023. TECHNIQUE: Contiguous axial imaging was performed from the skull base to vertex without intravenous administration of contrast. Contiguous axial imaging was performed from the upper chest through the skull base without intravenous administration of contrast. Coronal and sagittal reformats were obtained at the acquisition workstation. This CT examination was performed using dose optimization techniques as appropriate, variously including the following: *Automated exposure control. *Adjustment of mA and/or kV according to patient size (this includes techniques or standardized protocols for targeted exams where dose is matched to indication/reason for exam; i.e. extremities or head). *Use of iterative reconstruction technique. DLP: 989 mGy-cm FINDINGS: Head: There is no evidence of acute intracranial hemorrhage or edematous territorial infarction. Hutchins-white matter differentiation is preserved. An extra-axial mass along the cribriform plate is better demonstrated on prior MRI, measuring approximately 2.3 cm. Similar appearance of mild perilesional edema in the anterior-inferior aspect of the left frontal lobe. A few foci of hypoattenuation in the periventricular and deep white matter are consistent with mild microangiopathy. Proportional prominence of the ventricles and sulcal spaces without evidence of obstructive hydrocephalus. No abnormal mass effect or midline shift. No extra-axial fluid collections. Mild soft tissue edema along the right aspect of the frontal bone. No associated acute osseous abnormalities. The mastoid air cells and visualized paranasal sinuses are clear. Mild degenerative arthropathy of the right temporal mandibular joint. Cervical Spine: The atlantooccipital and atlantoaxial articulations remain well aligned. Advanced degenerative arthropathy of the atlantodental articulation. Straightening of the normal cervical lordosis. Otherwise, there is anatomic alignment of the vertebral bodies and posterior elements. Ankylosis of the C2-C3 facets. No evidence of acute fracture or subluxation. The vertebral body heights are maintained. Moderate degenerative disc disease from C3-C6. Facet and uncovertebral joint arthropathy leads to osseous encroachment on the neural foramina from C3-T1. There is no prevertebral soft tissue swelling. The thyroid gland and remaining cervical soft tissues are within normal limits. The lung apices demonstrate no abnormalities. Moderate left convex curvature of the visualized thoracic spine. CT/CT cervical spine wo IV con IMPRESSION: 1. No evidence of acute intracranial hemorrhage or edematous territorial infarction. Mild underlying microangiopathy and generalized cerebral volume loss. 2. No evidence of acute fracture or traumatic subluxation of the cervical spine. Moderate multilevel degenerative spondyloarthropathy of the cervical spine. 3. Similar appearance of a meningioma along the cribriform plate, better demonstrated on prior MRI. Similar appearance of mild perilesional edema in the anterior-inferior aspect of the left frontal lobe. Electronically signed by: Mumtaz Mary DO 02/10/2024 07:04 PM DINA
--- NOTE | ~2024-02-10 | XR_ITS ---
EXAMINATION: XR HIP, RIGHT CLINICAL INFORMATION: Fall with pain. COMPARISON: No similar priors. TECHNIQUE: Two views of the right hip. FINDINGS: No acute fracture or subluxation. Mild to moderate multifocal degenerative osteoarthritis. SI joints are symmetric. Pubic symphysis and pelvic rim are maintained. No significant soft tissue abnormality. XR/XR hip RT w PEL1V IMPRESSION: 1. No acute fracture or subluxation. 2. Mild to moderate multifocal degenerative osteoarthritis. Electronically signed by: Yoly Knight MD 02/10/2024 06:23 PM [facility]
--- NOTE | 2024-02-10 16:42 | ED.FALL ---
HPI - Fall General Chief Complaint: Fall Stated Complaint: fall-r hip pain Related Data Home Medications ?Medication ?Instructions ?Recorded ?Confirmed calcium carb-ergocalciferol (vit 1 tab PO DAILY 09/23/22 12/09/23 D2) 600 mg calcium-200 unit tablet multivitamin 1 tab PO DAILY 09/23/22 12/09/23 biotin 1,250 mcg-collagen 50 tab PO 12/22/22 12/09/23 mg-vit C 67.5 mg-vit E-herbal chew tablet quinine-vitamin E capsule cap PO 04/13/23 12/09/23 Previous Rx's ?Medication ?Instructions ?Recorded acetaminophen 325 mg tablet 650 mg (2 x 325 mg) PO Q6H PRN 02/20/21 Pain, Mild (Pain Scale 1-3) 30 days #240 tabs omeprazole 40 mg capsule,delayed 40 mg PO DAILY #90 caps 09/24/22 release azathioprine 50 mg tablet (Imuran) 50 mg PO DAILY #30 tabs 12/09/23 pyridostigmine bromide 60 mg 120 mg (2 x 60 mg) PO TID #180 tabs 12/09/23 tablet (Mestinon) Allergies Allergy/AdvReac Type Severity Reaction Status Date / Time ciprofloxacin [Cipro] Allergy Intermediate Itching Verified 02/10/24 16:46 Biaxin Allergy Severe Dizziness Uncoded 12/09/23 11:10 PMFSH Past Medical History Medical History Abnormal brain MRI Meningioma of orbit Diplopia Ocular myasthenia gravis Cervicalgia Cervical spondylosis Ptosis Anemia Stress incontinence Hayfever Osteoarthritis Lumbar disc disease GERD (gastroesophageal reflux disease) Arthritis of left knee Surgical History Hx of esophagogastroduodenoscopy S/P D&C (status post dilation and curettage) History of total left knee replacement (TKR) (02/18/21) History of cataract extraction Hx of appendectomy Hx of tonsillectomy Family History Family History Mother Pancreatic cancer Ovarian cancer Father Heart attack Pancreatic cancer Social History Social History Household Members: Spouse Household Members Other:: 3 Housing: House Are you a primary congregational care pastor to a significant other at home: No Do you presently have visiting nurse or other home services: No Alcohol intake: never Patient Tobacco Use Status: Former Tobacco user Tobacco use type: Cigarette Second Hand Smoke Exposure: No Advance Directives: No Advance Directives Information Provided: No service: No Current occupational status: retired Current occupation: rt handed Physical Exam Vital Signs: Vital Signs: Last Vital Signs Temp 97.2 F 02/10/24 16:43 Pulse 72 02/10/24 16:43 Resp 16 02/10/24 16:43 BP 194/79 H 02/10/24 16:43 Pulse Ox 98 02/10/24 16:43 O2 Del Method Room Air 02/10/24 16:43 BMI result Body Mass Index 26.5 Course Course Course Narrative: This is an RME: Additional HPI, ROS, PE not included below will be deferred to primary provider. RME assessment and note performed by: Nicki Whitehead PA-C This is a 88-khvm-ekm-female, with a PMHx of myasthenia gravis, scolicosis, who presents to the ER with complaints of right hip pain since yesterday. Pt states that yesterday she lost her balance and fell onto her right hip. No head strike or LOC. She is not on anticoagulation. Elevated blood pressure in triage. Plan: CT head and neck, labs, and EKG ordered Reevaluation(s) Reevaluation #1: Patient left without completing treatment. Medical Decision Making Lab Data 02/10/24 17:52 02/10/24 17:52 Labs: Lab Results 02/10/24 Range/Units 17:52 WBC 5.8 (4.8-10.8) X10*3/uL RBC 4.03 L (4.20-5.50) X10*6/uL Hgb 12.1 (12.0-16.0) g/dl Hct 37.8 (37.0-47.0) % MCV 93.8 (80.0-98.0) fL MCH 30.0 (27.0-33.0) pg MCHC 32.0 (31.0-35.0) g/dl RDW 13.9 (11.0-16.0) % Plt Count 288 (160-400) X10*3/uL MPV 10.2 (9.4-12.3) fL Immature Gran % (Auto) 0.3 (0.0-0.4) % Neut % (Auto) 70.9 (45-73) % Lymph % (Auto) 19.5 L (20-40) % Grundy % (Auto) 7.9 (2-11) % Eos % (Auto) 0.7 (0-4) % Baso % (Auto) 0.7 (0-2) % Lymph # (Auto) 1.1 L (1.2-4.9) X10*3/uL Grundy # (Auto) 0.5 (0.1-1.2) X10*3/uL Eos # (Auto) 0.0 (0.0-0.4) X10*3/uL Baso # (Auto) 0.0 (0.0-0.2) X10*3/uL Abs Immat Gran (auto) 0.02 (0.00-0.03) X10*3/uL Absolute Neuts (auto) 4.1 (2.0-8.3) x10*3/uL Absolute Nucleated RBC 0.000 (0.0-0.012) X10*3/uL Nucleated RBC % (auto) 0.0 (0.0-0.2) /100WBC Sodium 144 (135-145) mmol/L Potassium 4.2 (3.3-5.1) mmol/L Chloride 109 H (96-108) mmol/L Carbon Dioxide 25 (22-29) mmol/L Anion Gap 14 (12-20) BUN 13 (9-16) mg/dL Creatinine 0.82 (0.5-1.4) mg/dL Estim Creat Clear Calc 54.3 Estimated GFR > 60 Random Glucose 106 (60-115) mg/dL Calcium 9.5 (8.4-10.2) mg/dL Magnesium 2.2 (1.6-2.6) mg/dL Total Bilirubin 0.2 (0.0-1.0) mg/dL Direct Bilirubin < 0.2 (0.0-0.5) mg/dL AST 28 (5-31) U/L ALT 15 (0-31) U/L Alkaline Phosphatase 48 (39-117) U/L Troponin I High Sens 4.1 D (<3.5-17.0) ng/L Total Protein 7.2 (6.5-8.0) g/dL Albumin 4.3 (3.5-5.0) g/dL Discharge Plan Discharge Clinical Impression: Hip pain, right Patient Disposition: Left W/O Completing Treatment Prescriptions: No Action acetaminophen 325 mg Tablet 650 mg PO Q6H PRN (Reason: Pain, Mild (Pain Scale 1-3)) 30 Days Qty: 240 0RF multivitamin Tablet 1 tab PO DAILY calcium carbonate-vitamin D2 600 mg calcium- 200 unit Tablet 1 tab PO DAILY omeprazole 40 mg capsule,delayed release(DR/EC) 40 mg PO DAILY Qty: 90 2RF quinine-vitamin E Capsule PO [id number] C-E-herbal 1,250 mcg-50 mg -67.5 mg-15 mg tablet,chewable PO pyridostigmine bromide [Mestinon] 60 mg tablet 120 mg PO TID Qty: 180 3RF azathioprine [Imuran] 50 mg tablet 50 mg PO DAILY Qty: 30 6RF Discharge Date/Time: 02/10/24 21:40
[2024-02-10 16:43] VITALS: BP 194/79; PULSE 72; RESP 16; TEMP 36.2; O2SAT 98; BMI 26.5
--- NOTE | 2024-02-10 16:46 | ECG_ITS ---
Test Reason : fall Blood Pressure : / mmHG Vent. Rate : 069 BPM Atrial Rate : 069 BPM P-R Int : 130 ms QRS Dur : 076 ms QT Int : 404 ms P-R-T Axes : 052 -06 041 degrees QTc Int : 432 ms Normal sinus rhythm Normal ECG When compared with ECG of 23-SEP-2022 11:58, No significant change was found Referred By: Nicki Whitehead Electronically Signed By:THOMAS BELLO MD
[2024-02-10 18:03] LABS: MANUAL DIFF FLAG NO
[2024-02-10 18:09] LABS: Basophils Percent Auto 0.7 % (0-2); Eosinophils Percent Auto 0.7 % (0-4); Hematocrit 37.8 % (37.0-47.0); Hemoglobin 12.1 g/dl (12.0-16.0); Imm Gran Abs Auto 0.02 X10*3/uL (0.00-0.03); Imm Gran Pct Auto 0.3 % (0.0-0.4); Lymphocytes Absolute Auto 1.1 X10*3/uL (1.2-4.9); Lymphocytes Percent Auto 19.5 % (20-40); Mean Corpuscular Volume 93.8 fL (80.0-98.0); Mean Platelet Volume 10.2 fL (9.4-12.3); Monocytes Absolute Auto 0.5 X10*3/uL (0.1-1.2); Monocytes Percent Auto 7.9 % (2-11); Neutrophils Absolute Auto 4.1 x10*3/uL (2.0-8.3); Neutrophils Percent Auto 70.9 % (45-73); Platelet Count 288 X10*3/uL (160-400); Red Blood Count 4.03 X10*6/uL (4.20-5.50); Red Cell Distribution Width 13.9 % (11.0-16.0); White Blood Count 5.8 X10*3/uL (4.8-10.8)
[2024-02-10 18:23] LABS: Alanine Aminotransferase 15 U/L (0-31); Albumin Level 4.3 g/dL (3.5-5.0); Alkaline Phosphatase 48 U/L (39-117); Anion Gap 14 (12-20); Aspartate Amino Transferase 28 U/L (5-31); Bilirubin Direct < 0.2 mg/dL (0.0-0.5); Bilirubin Total 0.2 mg/dL (0.0-1.0); Blood Urea Nitrogen 13 mg/dL (9-16); Calcium 9.5 mg/dL (8.4-10.2); Carbon Dioxide 25 mmol/L (22-29); Chloride 109 mmol/L (96-108); Creatinine Clr Calc Pharmacy 54.3; Estimated Glomerular Filt Rate > 60; Glucose Random 106 mg/dL (60-115); Magnesium 2.2 mg/dL (1.6-2.6); Potassium 4.2 mmol/L (3.3-5.1); Sodium 144 mmol/L (135-145); Total Protein 7.2 g/dL (6.5-8.0)
[2024-02-10 18:27] LABS: Troponin-I High Sensitivity 4.1 ng/L (<3.5-17.0)
== END 2024-02-10 21:40 | disposition left against medical advice (07) ==
PROVIDERS: Physician Assistant Medical; Emergency Provider Emergency Medicine; PCP Internal Medicine
DX: M25.551 Pain in right hip (principal); R51.9 Headache, unspecified; M54.2 Cervicalgia; Z87.891 Personal history of nicotine dependence; Z79.899 Other long term (current) drug therapy
CPT/HCPCS: 36415; 70450; 72125; 73502; 80048; 80076; 83735; 84484; 85025; 93005; 99283; 99284

== ENCOUNTER → 2024-02-10 16:46 | Outpatient (BNV) | payer MEDICARE, SELFPAY | PROVIDERS: Emergency Provider Emergency Medicine; PCP Internal Medicine; Visit Provider Internal Medicine Cardiovascular Disease | DX: R03.0 Elevated blood-pressure reading, without diagnosis of hypertension (principal); W01.0XXA Fall on same level from slipping, tripping and stumbling without subsequent striking against object, initial encounter | CPT/HCPCS: 93010 ==

== ENCOUNTER 2024-02-14 14:46 | Outpatient (AMB) | payer MEDICARE, SELFPAY ==
[2024-02-14 14:46] VITALS: BMI 26.4
--- NOTE | 2024-02-14 14:46 | A.OFFVIS_ITS ---
Vital Signs 02/14/24 14:46 Height 5 ft 4 in Weight 154 lb BMI 26.4 Intake Visit Reasons: Follow up Intake Note: Patient presents for follow up. Allergies ciprofloxacin [Cipro] Allergy (Intermediate, Verified 02/14/24 14:48) Itching Biaxin Allergy (Severe, Uncoded 02/14/24 14:48) Dizziness Medication List - Last Reconciled 02/14/24 by Haritha Green MD acetaminophen 650 mg (2 x 325 mg) PO Q6H PRN 30 days azathioprine 75 mg PO DAILY ugsabo-vhkcjbmz-kpz C-E-herbal 1,250 mcg-50 mg -67.5 mg-15 mg tabs PO calcium carbonate-vitamin D2 600 mg calcium- 200 unit 1 tab PO DAILY multivitamin 1 tab PO DAILY omeprazole 40 mg PO DAILY pyridostigmine bromide (Mestinon) 120 mg (2 x 60 mg) PO TID quinine-vitamin E caps PO HPI Comments Details: 79y/o female comes for follow up of seronegative ocular myasthenia.she is doing good - wants to increase dose in evenings she reports droopy eyelids for 4 years now. It fluctuates and worsens in the evenings. its worse in her right eye.she also has double vision worsens when she is fatigued. she denies speech difficulty or any problems with swallowing she also has lumbar spondylosis and has gait issues related to that. she uses a walker and had some falls. she has a diagnosis of peripheral neuropathy. [facility] Medical History Abnormal brain MRI Meningioma of orbit Diplopia Ocular myasthenia gravis Cervicalgia Cervical spondylosis Ptosis Anemia Stress incontinence Hayfever Osteoarthritis Lumbar disc disease GERD (gastroesophageal reflux disease) Arthritis of left knee Surgical History Hx of esophagogastroduodenoscopy S/P D&C (status post dilation and curettage) History of total left knee replacement (TKR) (02/18/21) History of cataract extraction Hx of appendectomy Hx of tonsillectomy Family History Mother Pancreatic cancer Ovarian cancer Father Heart attack Pancreatic cancer Social History Household Members: Spouse Household Members Other:: 3 Housing: House Are you a primary nurse healthcare manager to a significant other at home: No Do you presently have visiting nurse or other home services: No Alcohol intake: never Patient Tobacco Use Status: Former Tobacco user Tobacco use type: Cigarette Second Hand Smoke Exposure: No service: No Current occupational status: retired Current occupation: rt handed Physical Exam Vital Signs: BMI result Body Mass Index 26.4 Const General: cooperative; No comfortable Nutritional Appearance: overweight Orientation/consciousness: patient oriented x3 Eyes Pupils: Equal, round and reactive pupils present Neuro Other: Severe ptosis bilateral- no upgaze - better than last visit kyphosis - slow using walker General: patient oriented x3, tone normal and moves all extremities Cranial nerves: Yes Equal, round and reactive pupils present, Yes Nystagmus not present, Yes Normal facial strength present and Yes Midline tongue present Cognition (Neuro): normal cognition Gait exam (Neuro): Antalgic gait present Motor exam (neuro): 5/5 motor strength present throughout and Normal motor muscle tone present throughout Coordination: lhpvqr-qe-vyfk test normal Assessment & Plan Assessment & Plan (1) Ocular myasthenia gravis: Code(s): G70.00 - Myasthenia gravis without (acute) exacerbation Category: Medical (2) Cervicalgia: Code(s): M54.2 - Cervicalgia Category: Medical (3) Abnormal brain MRI: Comment: anterior cranial fossa lesion - extra axial Code(s): R90.89 - Other abnormal findings on diagnostic imaging of central nervous system Category: Medical (4) Lumbar spondylosis: Code(s): M47.816 - Spondylosis without myelopathy or radiculopathy, lumbar region Category: Medical (5) Chronic pain syndrome: Code(s): G89.4 - Chronic pain syndrome Category: Medical Plan Anti MUSK antibody was negative Pyridostigmine 60mg 1-2-2-1 increase imuran 75mg qd will consider IVIg or vygart CT chest for thymus - report F/u with Dr Hodges MRI brain with kayla and orbits - reviewed- Right anterior cranial fossa meningioma is seen without invasion into the orbits or displacement of extraocular muscle. Medications: Changed From azathioprine (Imuran) 50 mg PO DAILY 30 tabs 6RF To azathioprine 75 mg PO DAILY 30 tabs 6RF Refilled pyridostigmine bromide (Mestinon) 120 mg (2 x 60 mg) PO TID 180 tabs 3RF Coding Level of Care Code Est Pt Level 4 (07171) Complex EM visit Add On G2211 Diagnoses Ocular myasthenia gravis G70.00 Cervicalgia M54.2 Abnormal brain MRI R90.89 Lumbar spondylosis M47.816 Chronic pain syndrome G89.4
== END 2024-02-14 15:07 | disposition home or self-care (01) ==
PROVIDERS: PCP Internal Medicine; Visit Provider Psychiatry & Neurology Neurology
DX: G70.00 Myasthenia gravis without (acute) exacerbation (principal); M54.2 Cervicalgia; R90.89 Other abnormal findings on diagnostic imaging of central nervous system; M47.816 Spondylosis without myelopathy or radiculopathy, lumbar region; G89.4 Chronic pain syndrome
CPT/HCPCS: 99214; G2211

== ENCOUNTER → 2024-02-14 14:46 | Outpatient (BNVA) | payer MEDICARE, SELFPAY | PROVIDERS: PCP Internal Medicine; Visit Provider Psychiatry & Neurology Neurology | DX: G70.00 Myasthenia gravis without (acute) exacerbation (principal); M54.2 Cervicalgia; R90.89 Other abnormal findings on diagnostic imaging of central nervous system; M47.816 Spondylosis without myelopathy or radiculopathy, lumbar region; G89.4 Chronic pain syndrome; G62.9 Polyneuropathy, unspecified | CPT/HCPCS: 99212 ==

== ENCOUNTER 2024-05-25 11:44 | Outpatient (AMB) | payer MEDICARE, SELFPAY ==
--- NOTE | 2024-05-25 11:45 | A.OFFVIS_ITS ---
Vital Signs 05/25/24 11:46 Height 5 ft 4 in Weight 149 lb BMI 25.6 BP 164/90 H Blood Pressure Location Rt brachial Position Sitting Intake Visit Reasons: Follow up Intake Note: patient following up for medication change. pyridostigmine bromide (Mestinon) Allergies ciprofloxacin [Cipro] Allergy (Intermediate, Verified 05/25/24 11:49) Itching Biaxin Allergy (Severe, Uncoded 05/25/24 11:49) Dizziness HPI Comments Details: 79y/o female comes for follow up of seronegative ocular myasthenia. she is scheduled to see a specialist for her eye in [place] this November. she reports droopy eyelids for 4 years now. It fluctuates and worsens in the evenings. its worse in her right eye.she also has double vision worsens when she is fatigued. she denies speech difficulty or any problems with swallowing she also has lumbar spondylosis and has gait issues related to that. she uses a walker and had some falls. she has a diagnosis of peripheral neuropathy. [facility] Medical History Abnormal brain MRI Meningioma of orbit Diplopia Ocular myasthenia gravis Cervicalgia Cervical spondylosis Ptosis Anemia Stress incontinence Hayfever Osteoarthritis Lumbar disc disease GERD (gastroesophageal reflux disease) Arthritis of left knee Surgical History Hx of esophagogastroduodenoscopy S/P D&C (status post dilation and curettage) History of total left knee replacement (TKR) (02/18/21) History of cataract extraction Hx of appendectomy Hx of tonsillectomy Family History Mother Pancreatic cancer Ovarian cancer Father Heart attack Pancreatic cancer Social History Household Members: Spouse Household Members Other:: 3 Housing: House Are you a primary nurse wound care to a significant other at home: No Do you presently have visiting nurse or other home services: No Alcohol intake: never Patient Tobacco Use Status: Former Tobacco user Tobacco use type: Cigarette Second Hand Smoke Exposure: No service: No Current occupational status: retired Current occupation: rt handed Physical Exam Vital Signs: Last Vital Signs BP 164/90 H 05/25/24 11:46 BMI result Body Mass Index 25.6 Const General: cooperative; No comfortable Nutritional Appearance: overweight Orientation/consciousness: patient oriented x3 Eyes Pupils: Equal, round and reactive pupils present Neuro Other: Severe ptosis bilateral- no upgaze - better than last visit kyphosis - slow using walker General: patient oriented x3, tone normal and moves all extremities Cranial nerves: Yes Equal, round and reactive pupils present, Yes Nystagmus not present, Yes Normal facial strength present and Yes Midline tongue present Cognition (Neuro): normal cognition Gait exam (Neuro): Antalgic gait present Motor exam (neuro): 5/5 motor strength present throughout and Normal motor muscle tone present throughout Coordination: yhaczb-hr-hyrn test normal Assessment & Plan Assessment & Plan (1) Ocular myasthenia gravis: Code(s): G70.00 - Myasthenia gravis without (acute) exacerbation Category: Medical (2) Cervicalgia: Code(s): M54.2 - Cervicalgia Category: Medical (3) Abnormal brain MRI: Comment: anterior cranial fossa lesion - extra axial Code(s): R90.89 - Other abnormal findings on diagnostic imaging of central nervous system Category: Medical (4) Lumbar spondylosis: Code(s): M47.816 - Spondylosis without myelopathy or radiculopathy, lumbar region Category: Medical (5) Chronic pain syndrome: Code(s): G89.4 - Chronic pain syndrome Category: Medical Plan Anti MUSK antibody was negative Pyridostigmine 60mg 1-2-2-1 Imuran 75mg qd will consider IVIg or vygart CT chest for thymus - report F/u with Dr Hodges MRI brain with kayla and orbits - reviewed- Right anterior cranial fossa meningioma is seen without invasion into the orbits or displacement of extraocular muscle. Medications: New azathioprine 100 mg (2 x 50 mg) PO DAILY 60 tabs 6RF Discontinued azathioprine Discontinued Reason: Patient no longer taking 75 mg (1.5 x 50 mg) PO DAILY 135 tabs 6RF Coding Level of Care Code Est Pt Level 4 (47924) Complex EM visit Add On G2211 Diagnoses Ocular myasthenia gravis G70.00 Cervicalgia M54.2 Abnormal brain MRI R90.89 Lumbar spondylosis M47.816 Chronic pain syndrome G89.4
[2024-05-25 11:46] VITALS: BP 164/90; BMI 25.6
--- OUTSIDE RECORDS SUMMARY | 2024-05-25 12:57 | XMS_ITS ---
Author Organization [facility] Address [address] [place] [id number] Care Team Providers Care Bowling Pin Refinisher Name Role Phone Andry Mendoza MD Primary Care Provider Unavaila Randall Fisher Unavailable [phone] Ole Adorno Jr Unavailable [phone] REASON FOR VISIT gastric ulcers, anemia Encounters Encounter Location Date Provider [place] [facility] [place] [address] [place] [id number] 12/30/2022 Ole Adorno Jr PLAN OF TREATMENT No Information
--- OUTSIDE RECORDS SUMMARY | 2024-05-25 12:57 | XMS_ITS | Patient Health Record ---
Author [facility] [place] Address [address] [place] [address] Care Team Providers Care Italian Tutor Name Role Phone Andry Mendoza MD Primary Care Provider Unavaila Jerrod Lugo Unavailable [phone] Allergies Allergen (clinical drug ingredient) Drug/Non Drug Allergy documented on EMR Reaction Allergy Type Onset Date Status Biaxin dizziness Drug Allergy Active ciprofloxacin Cipro itching Drug Allergy Act brett Levaquin itching Drug Allergy Active azithromycin Azithromycin dizziness Drug Allergy A ctive erythromycin Erythromycin dizziness Drug Allergy A ctive Reason For Referral No Information Medications Medication SIG (Take, Route, Frequency, Duration) Notes Start Date End Date Status Melatonin PRN Active Multivitamin Active Ibuprofen 3x a day Active Omeprazole 20 MG Orally Act brett Calcium + D Active Sudafed Active Tylenol PM Extra Strength Active Tums Active Immunizations Vaccine Route Administration Date Status Comme nts COVID-19 Pfizer BioNTech Vaccine Unknown 06/16/2020 Administered 1st 05/23/2020 Social History Tobacco Use: Social History Observation Description Date Details (start date - stop date) Former Smoker NA - NA Tobacco Use/Smoking Question Answer Notes Are you a: former smoker Additional Findings: Tobacco User Light cigarett e smoker ((1-9 cigs/day) Additional Findings: Tobacco Non-User Current no n-smoker Alcohol Screen Question Answer Notes Did you have a drink containing alcohol in the p ast year? No Points 0 Interpretation Negative Tobacco use other than smoking: Question Answer Notes Are you an other tobacco user? No Problems Problem Type SNOMED Code ICD Code Onset Dates Problem Status W/U Status Risk Notes Problem Plantar wart (62363891) Plantar wart (B07.0) Active confirmed Plan Of Treatment Pending Test Test Name Order Date [id number] Destruction, 04-1812/27/2020 [id number] Destruction, 04-1807/11/2021 [id number] Destruction, 04-1802/03/2022 [id number] Plate 05/17/2015 Insurance Providers Payer Name Payer Address Payer Phone Subscriber Number Group Number Insured Name Patient Relationship to Insured Coverage Start Date Coverage End Date [employer] 65 Medicare Preferred [address] [place] [address] [id number] Leni Bright Self - patient is the insured Medical (General) History Medical History History ICD Code arthritis Back pain Cataracts Reflux Sinus conditions Measles Mumps Chicken pox Surgical History Surgery Date(Month/Year) tonsillectomy and adenoidectomy 1952 appendectomy 1966 dilatation and curettage 2000
--- OUTSIDE RECORDS SUMMARY | 2024-05-25 12:57 | XMS_ITS | Patient Health Record ---
Author Organization [facility] Address [address] [place] [address] Care Team Providers Care Valve Technician Name Role Phone Andry Mendoza MD Primary Care Provider Randall Bhat Unavailable [phone] REASON FOR REFERRAL No Information SOCIAL HISTORY Sex Assigned At : Social History Observation Description Sex Assigned At Unknown PROBLEMS Problem Type ICD Code Onset Dates Problem Status W/U Status Risk SNOMED Code Notes Problem Iron deficiency anemia (D50.9) Active confirmed Iron deficiency anemia (10400423) Problem Gastric ulcer (K25.9) Active confirmed Gastric ulcer (690130166) PLAN OF TREATMENT No Information Insurance Providers Payer Name Payer Address Payer Phone Subscriber Number Group Number Insured Name Patient Relationship to Insured Coverage Start Date Coverage End Date [facility] [address] [place] [address] [id number] ELIZABETH ARAGON Self - patient is the insured
--- OUTSIDE RECORDS SUMMARY | 2024-05-25 12:58 | XMS_ITS ---
Author Organization [facility] Address [address] [place] [address] Care Team Providers Care Machine Adjuster Leader Case Trim Name Role Phone Andry Mendoza MD Primary Care Provider Unavaila Randall Fisher Unavailable [phone] Ole Adorno Jr Unavailable REASON FOR VISIT anemia, gastric ulcers PROBLEMS Problem Type ICD Code Onset Dates Problem Status W/U Status Risk SNOMED Code Notes Problem Gastric ulcer (K25.9) Active confirmed Gastric ulcer (556790746) Encounters Encounter Location Date Provider Diagnosis [facility] [place] [address] [place] [id number] 01/26/2023 Ole Adorno Jr Colon polyp K63.5 ; Iron deficiency anemia D50.9 and Gastric ulcer K25.9 ASSESSMENTS Encounter Date Diagnosis Assessment Notes Treatment Notes Treatment Clinical Notes 01/26/2023 Colon polyp (ICD-10 - K63.5) 01/26/2023 Iron deficiency anemia (ICD-10 - D50.9) 01/26/2023 Gastric ulcer (ICD-10 - K25.9) PLAN OF TREATMENT No Information
--- OUTSIDE RECORDS SUMMARY | 2024-05-25 12:58 | XMS_ITS ---
Author Organization [facility] Address [address] [place] [phone] Care Team Providers Care It Service Continuity Supervisor Name Role Phone Andry Mendoza MD Primary Care Provider Unavaila Randall Fisher Unavailable [phone] REASON FOR VISIT pathology Encounters Encounter Location Date Provider Diagnosis [facility] [address] [place] [phone] 01/28/2023 Randall Proctor PLAN OF TREATMENT No Information
== END 2024-05-25 12:11 | disposition home or self-care (01) ==
PROVIDERS: PCP Internal Medicine; Visit Provider Psychiatry & Neurology Neurology
DX: G70.00 Myasthenia gravis without (acute) exacerbation (principal); M54.2 Cervicalgia; R90.89 Other abnormal findings on diagnostic imaging of central nervous system; M47.816 Spondylosis without myelopathy or radiculopathy, lumbar region; G89.4 Chronic pain syndrome
CPT/HCPCS: 99214; G2211

== ENCOUNTER → 2024-05-25 11:44 | Outpatient (BNVA) | payer MEDICARE, SELFPAY | PROVIDERS: PCP Internal Medicine; Visit Provider Psychiatry & Neurology Neurology | DX: G70.00 Myasthenia gravis without (acute) exacerbation (principal); M54.2 Cervicalgia; R90.89 Other abnormal findings on diagnostic imaging of central nervous system; M47.816 Spondylosis without myelopathy or radiculopathy, lumbar region; G89.4 Chronic pain syndrome | CPT/HCPCS: 99212 ==

== ENCOUNTER 2024-06-26 07:38 | Outpatient (REF) | payer MEDICARE, SELFPAY ==
--- NOTE | ~2024-06-26 | XR_ITS ---
EXAMINATION: XR KNEE 3 VIEWS RIGHT HISTORY: Z98.890 - Other specified postprocedural states COMPARISON: Comparison is made to prior examination dated 02/12/2022. FINDINGS: Standing AP views of both knees and additional lateral and sunrise patellar views of the right knee are submitted. Osseous mineralization is normal. There is no fracture or dislocation. Again seen is severe osteoarthritis of the medial compartment with joint space narrowing and osteophyte formation. There is moderate osteoarthritis of the lateral and patellofemoral compartments. The soft tissues are unremarkable. There is no joint effusion. Incidental note is made of the left total knee prosthesis. XR/XR knee RT 3V IMPRESSION: Osteoarthritis of the right knee as described. Electronically signed by: Randall Geronimo MD 06/27/2024 10:26 AM EDT
== END 2024-06-26 07:39 | disposition home or self-care (01) ==
LOC: HO.HOSX 07:38
PROVIDERS: Visit Provider Orthopaedic Surgery
DX: M25.562 Pain in left knee (principal); M17.11 Unilateral primary osteoarthritis, right knee; G70.00 Myasthenia gravis without (acute) exacerbation; G89.4 Chronic pain syndrome
CPT/HCPCS: 73562; 99212

== ENCOUNTER 2024-06-26 09:38 | Outpatient (AMB) | payer MEDICARE, SELFPAY ==
--- NOTE | 2024-06-26 09:42 | MHC.OFFVIS ---
Vital Signs 06/26/24 09:47 Height 5 ft 4 in Weight 149 lb BMI 25.6 Intake Visit Reasons: New Prob - Right Knee OA - Discuss TKA Intake Note: Leni is a 79 year old female who presents today for a new problem visit with complaints of Right Knee OA. Patient had a Left TKA in 2020 & she would like to discuss having her right knee replaced. Allergies ciprofloxacin [Cipro] Allergy (Intermediate, Verified 06/26/24 09:42) Itching Biaxin Allergy (Severe, Uncoded 06/26/24 09:42) Dizziness HPI HPI New Prob - Right Knee OA - Discuss TKA: Details: Leni is a 79 year old female who presents today for a new problem visit with complaints of Right Knee OA. Patient had a Left TKA in 2020 & she would like to discuss having her right knee replaced. She is having complications related to her Myasthenia Gravis and is using a walker and having cognitive difficulty. She is here with her today. She states that her knee pain is not currently painful. She does not want injections. She is not sure if it is her knee that is preventing her from walking more. [facility] Medical History Abnormal brain MRI Meningioma of orbit Diplopia Ocular myasthenia gravis Cervicalgia Cervical spondylosis Ptosis Anemia Stress incontinence Hayfever Osteoarthritis Lumbar disc disease GERD (gastroesophageal reflux disease) Arthritis of left knee Surgical History Hx of esophagogastroduodenoscopy S/P D&C (status post dilation and curettage) History of total left knee replacement (TKR) (02/18/21) History of cataract extraction Hx of appendectomy Hx of tonsillectomy Family History Mother Pancreatic cancer Ovarian cancer Father Heart attack Pancreatic cancer Social History Household Members: Spouse Household Members Other:: 3 Housing: House Are you a primary wound care physician to a significant other at home: No Do you presently have visiting nurse or other home services: No Alcohol intake: never Patient Tobacco Use Status: Former Tobacco user Tobacco use type: Cigarette Second Hand Smoke Exposure: No service: No Current occupational status: retired Current occupation: rt handed Physical Exam Vital Signs: BMI result Body Mass Index 25.6 Extrem Other: 10-125 sable ligamentous exam mild medial compartment ttp. Assessment & Plan Assessment & Plan (1) Arthritis of right knee: Code(s): M17.11 - Unilateral primary osteoarthritis, right knee Category: Medical Plan: Right knee is arthritic and moderately painful some of the time. She is not a candidate for arthroplasty given her ongoing neurological problem which seems to be affecting her balance and cogntivie dysfunction. She does not want injections. She has an appt scheduled in [place] to further discuss neuro issue. I explained my recommendation to her and she expressed understanding. (2) Myasthenia gravis: Code(s): G70.00 - Myasthenia gravis without (acute) exacerbation Category: Medical Plan: (3) Chronic pain syndrome: Code(s): G89.4 - Chronic pain syndrome Category: Medical Plan: Orders: Orders XR knee LT 1V Today M25.569 - Pain in unspecified knee Coding Level of Care Code Est Pt Level 3 (15743) Complex EM visit Add On G2211 Diagnoses Arthritis of right knee M17.11 Myasthenia gravis G70.00 Chronic pain syndrome G89.4
[2024-06-26 09:47] VITALS: BMI 25.6
== END 2024-06-26 10:15 | disposition home or self-care (01) ==
LOC: HO.HOS 09:39
PROVIDERS: PCP Internal Medicine; Visit Provider Orthopaedic Surgery
DX: M17.11 Unilateral primary osteoarthritis, right knee (principal); G70.00 Myasthenia gravis without (acute) exacerbation; G89.4 Chronic pain syndrome
CPT/HCPCS: 99213; G2211

== ENCOUNTER → 2024-06-26 09:40 | Outpatient (BNV) | payer MEDICARE, SELFPAY | PROVIDERS: Visit Provider Radiology Diagnostic Radiology | DX: M17.0 Bilateral primary osteoarthritis of knee (principal) | CPT/HCPCS: 73562 ==

== ENCOUNTER 2024-06-27 10:47 | Outpatient (AMB) | payer MEDICARE, SELFPAY ==
--- NOTE | 2024-06-27 10:47 | MHC.OFFVIS ---
Intake Visit Reasons: 6wk follow-up Intake Note: Patient presents for medication increase azathioprine/chest CT 01/31/24 Allergies ciprofloxacin [Cipro] Allergy (Intermediate, Verified 06/27/24 10:47) Itching Biaxin Allergy (Severe, Uncoded 06/27/24 10:47) Dizziness HPI Comments Details: 79y/o female calls for follow up of seronegative ocular myasthenia.she is worse since her last visit. she is scheduled to see a specialist for her eye in [place] this November. she reports droopy eyelids for 4 years now. It fluctuates and worsens in the evenings. its worse in her right eye.she also has double vision worsens when she is fatigued. she denies speech difficulty or any problems with swallowing she also has lumbar spondylosis and has gait issues related to that. she uses a walker and had some falls. she has a diagnosis of peripheral neuropathy. [facility] Medical History Abnormal brain MRI Meningioma of orbit Diplopia Ocular myasthenia gravis Cervicalgia Cervical spondylosis Ptosis Anemia Stress incontinence Hayfever Osteoarthritis Lumbar disc disease GERD (gastroesophageal reflux disease) Arthritis of left knee Surgical History Hx of esophagogastroduodenoscopy S/P D&C (status post dilation and curettage) History of total left knee replacement (TKR) (02/18/21) History of cataract extraction Hx of appendectomy Hx of tonsillectomy Family History Mother Pancreatic cancer Ovarian cancer Father Heart attack Pancreatic cancer Social History Household Members: Spouse Household Members Other:: 3 Housing: House Are you a primary continuum of care manager to a significant other at home: No Do you presently have visiting nurse or other home services: No Alcohol intake: never Patient Tobacco Use Status: Former Tobacco user Tobacco use type: Cigarette Second Hand Smoke Exposure: No service: No Current occupational status: retired Current occupation: rt handed Telehealth Telehealth Telehealth Platform: Telephone Location of provider rendering services: practice address Location of patient: address on file Patient Identification confirmed using: Name, : Yes Telehealth method: voice only Patient verbally consented to treatment: Yes Patient verbally consented to billing insurance company: Yes Patient informed of any privacy concerns related to visit: Yes Assessment & Plan Assessment & Plan (1) Ocular myasthenia gravis: Code(s): G70.00 - Myasthenia gravis without (acute) exacerbation Category: Medical (2) Cervicalgia: Code(s): M54.2 - Cervicalgia Category: Medical (3) Abnormal brain MRI: Comment: anterior cranial fossa lesion - extra axial Code(s): R90.89 - Other abnormal findings on diagnostic imaging of central nervous system Category: Medical (4) Lumbar spondylosis: Code(s): M47.816 - Spondylosis without myelopathy or radiculopathy, lumbar region Category: Medical (5) Chronic pain syndrome: Code(s): G89.4 - Chronic pain syndrome Category: Medical Plan Anti MUSK antibody was negative Pyridostigmine 60mg 1-2-2-[address] chest reviewed . No enlarged thymus F/u with Dr Hodges MRI brain with kayla and orbits - reviewed- Right anterior cranial fossa meningioma is seen without invasion into the orbits or displacement of extraocular muscle. Orders: Referrals Neurology Referral R90.89 - Other abnormal findings on diagnostic imaging of central nervous system, G70.00 - Myasthenia gravis without (acute) exacerbation Coding Level of Care Code Est Pt Level 4 (75060) Complex EM visit Add On G2211 Diagnoses Ocular myasthenia gravis G70.00 Cervicalgia M54.2 Abnormal brain MRI R90.89 Lumbar spondylosis M47.816 Chronic pain syndrome G89.4
== END 2024-06-28 08:28 | disposition home or self-care (01) ==
LOC: HO.HSMS 10:47
PROVIDERS: PCP Internal Medicine; Visit Provider Psychiatry & Neurology Neurology
DX: G70.00 Myasthenia gravis without (acute) exacerbation (principal); M54.2 Cervicalgia; R90.89 Other abnormal findings on diagnostic imaging of central nervous system; M47.816 Spondylosis without myelopathy or radiculopathy, lumbar region; G89.4 Chronic pain syndrome
CPT/HCPCS: 99214; G2211

== ENCOUNTER → 2024-06-27 10:47 | Outpatient (BNVA) | payer MEDICARE, SELFPAY | PROVIDERS: PCP Internal Medicine; Visit Provider Psychiatry & Neurology Neurology | DX: G70.00 Myasthenia gravis without (acute) exacerbation (principal); M54.2 Cervicalgia; M47.816 Spondylosis without myelopathy or radiculopathy, lumbar region; R90.89 Other abnormal findings on diagnostic imaging of central nervous system; G89.4 Chronic pain syndrome | CPT/HCPCS: 99212 ==

== ENCOUNTER → 2024-08-16 12:06 | Outpatient (BNVA) | payer MEDICARE, SELFPAY | PROVIDERS: PCP Internal Medicine; Visit Provider Psychiatry & Neurology Neurology ==

== ENCOUNTER 2024-12-19 15:40 | Outpatient (AMB) | payer MEDICARE, SELFPAY ==
--- NOTE | 2024-12-19 15:42 | A.OFFPC_ITS ---
Vital Signs 12/19/24 15:52 Height 5 ft 4 in BP 140/66 H Respiration 16 Pulse 66 Pulse Source Pulse Oximeter Temp 97.2 F Temp Source Temporal Artery Scan Pulse Oximetry (%) 99 Oxygen Delivery Method Room Air Intake Visit Reasons: MONTRELL/ Dr Mendoza Verifying Specialist Required: No Accompanied by: Spouse Allergies ciprofloxacin (Cipro) Allergy (Intermediate, Verified 12/19/24 15:42) Itching Biaxin Allergy (Severe, Uncoded 12/19/24 15:42) Dizziness Tobacco use date assessed: 12/19/24 Fall risk assessment: 2 + Falls in past year (10+) Last assessed Fall Risk: 12/19/24 Dental Screening Dental Screen Date: 12/19/24 Did you have a dental visit in the last 12 months?: Yes Did you have a dental problem in the last 6 months where you did not have access to dental care?: No Was dental information given to patient?: No HPI HPI Comments History of Present Illness Details 79-year-old female with history of hyper cholesterolemia, osteoarthritis of multiple joints, urge incontinence, meningioma, myasthenia gravis, iron- deficiency anemia, hypertension, GERD, scoliosis, peripheral neuropathy, colon polyp, varicose veins presents to the office today for management of chronic conditions and to establish care. She is a former patient of Dr. Mendoza, last seen February 2024. Here with and caregiver, Baldo. Neuro-had previously been [place] [facility] for question of ocular myasthenia gravis. She was referred to [facility] to Dr. Chacon for further evaluation and 2nd opinion. Per the patient/her , uncertain if diagnosis is myasthenia gravis versus Parkinson's disease. She does have history of chronic low back pain with multiple falls and weakness in the lower legs. She also has diplopia and ptosis as well as shaking voice. No tremor or dysphagia. Has upcoming MRI of the lumbar spine and brain on 12[place]30 [place] [facility] Does continue on Vyvgart, azathioprine, and Mestinon. Ambulates with a walker. Has follow-up with Dr. Green on 12/28 Psych- mood fluctuations reported. PHQ-9 score 23, gia 7 score 16. No SI/HI. Not interested in therapy or medication. Possibly related to above Peripheral neuropathy-no bothersome symptoms Urge incontinence-symptoms managed Iron-deficiency anemia-not taking iron supplement Hypertension-blood pressure borderline 140/66, not on antihypertensives GERD-ppi Hypercholesterolemia-not on statin. Due for lipid panel Concerns: None ROS: See HPI EXAM: Constitutional - Awake and Alert, No apparent distress Eyes - PERRL Cardiovascular - S1S2, RRR, No edema Respiratory - Normal lung expansion, Normal respiratory effort, No respiratory distress, CTA bilaterally Extremities - no calf tenderness bilaterally, no swelling Skin - Warm/Dry Neurological - Alert & oriented x3. Bilateral blepharoptosis covering about 50% pupils, weakness of forehead muscles. Otherwise CN II-XII intact. Gait ataxic/slow, ambulates with walker Psychological - Appropriate affect [facility] Medical History (Updated 12/19/24 @ 17:20 by JASON Roper) Anemia Abnormal brain MRI Meningioma of orbit Diplopia Ocular myasthenia gravis Cervicalgia Cervical spondylosis Ptosis Stress incontinence Hayfever Osteoarthritis Lumbar disc disease GERD (gastroesophageal reflux disease) Arthritis of left knee Surgical History History of colonoscopy (~01/26/23) Hx of esophagogastroduodenoscopy S/P D&C (status post dilation and curettage) History of total left knee replacement (TKR) (02/18/21) History of cataract extraction Hx of appendectomy Hx of tonsillectomy Family History Mother Pancreatic cancer Ovarian cancer Father Heart attack Pancreatic cancer Social History Household Members: Spouse Household Members Other:: 3 Housing: House Are you a primary medicare biller to a significant other at home: No Do you presently have visiting nurse or other home services: No Alcohol intake: never Patient Tobacco Use Status: Former Tobacco user Tobacco use type: Cigarette e-Cigarette/Vaping Use: Never Used Second Hand Smoke Exposure: No service: No Current occupational status: retired Current occupation: rt handed Cognitive needs: Yes (Walker) Hearing needs: No Vision needs: Yes (Reading glasses) Questionnaire PHQ-9 Over the last 2 weeks, how often have you been bothered by any of the following problems? 1. Little interest or pleasure in doing things: nearly every day 2. Feeling down, depressed, or hopeless: nearly every day 3. Trouble falling or staying asleep, or sleeping too much: nearly every day 4. Feeling tired or having little energy: nearly every day 5. Poor appetite or overeating: several days 6. Feeling bad about yourself - or that you are a failure or have let yourself or your family down: more than half the days 7. Trouble concentrating on things, such as reading the newspaper or watching television: nearly every day 8. Moving or speaking so slowly that other people could have noticed. Or the opposite - being so fidgety or restless that you have been moving around a lot more than usual: nearly every day 9. Thoughts that you would be better off or of hurting yourself in some way: more than half the days Total score: 23 Depression Screening Interpretation: Positive Depression Screening Done: Yes 44687 - PHQ-9 Billing: Yes Source: Developed by Drs. Randall Otoole, Abbie Neil, Waldo Taylor and colleagues, with an educational arabella from [employer]. Thrive Questionnaire Date Thrive assessed: 09/24/22 I am a: Parent/Caregiver What is your living situation today?: I have a steady place to live Within the past 12 months, did the food you bought not last and you didn't have the money to get more?: Never true Within the past 12 months, did you worry whether your food would run out before you got money to buy more?: Never true Do you have trouble paying for medicines?: No Do you have trouble getting transportation to medical appointments?: No Do you have trouble paying your heating and electricity bill?: No Do you have trouble taking care of your child, family member or friend?: No Do you have trouble with day-to-day activities such as bathing, preparing meals, shopping, managing finances, etc.?: No Are you currently unemployed and looking for a job?: No Are you interested in more education?: No Please select the resources that you would like help with: None Currently or been in a relationship where the following occur: No concerns reported THRIVE Score: 0 GIA-7 AMB Questionnaire GIA-7 Feeling nervous, anxious, or on edge: 3 = Nearly every day Not being able to stop or control worryin = Nearly every day Worrying too much about different things: 3 = Nearly every day Trouble relaxin = More than half the days Being so restless that it is hard to sit still: 2 = More than half the days Becoming easily annoyed or irritable: 2 = More than half the days Feeling afraid as if something awful might happen: 1 = Several days Total GIA-7 score (0-4 normal; 5-9 mild; 10-14 moderate; 15-21 severe): 16 Source: Developed by Drs. Randall Otoole, Abbie Neil, Waldo Taylor and colleagues, with an educational arabella from [employer]. GIA-7 Assessment Billing GIA-7 Assessment Tool: GIA-7 Assessment 83622 Physical exam (Primary Care) Vital Signs: Last Vital Signs Temp 97.2 F 12/19/24 15:52 Pulse 66 12/19/24 15:52 Resp 16 12/19/24 15:52 BP 140/66 H 12/19/24 15:52 Pulse Ox 99 12/19/24 15:52 Oxygen Delivery Method Room Air 12/19/24 15:52 Tobacco/Smoking Status: Tobacco use Status Tobacco use date assessed 12/19/24 12/19/24 15:54 Patient Tobacco Use Status Former Tobacco user 12/19/24 15:43 Tobacco use type Cigarette 12/19/24 15:43 e-Cigarette/Vaping Use Never Used 12/19/24 15:54 Depression Screening Interpretation: Positive Thrive Assessment: Date of Thrive Assessment Date Thrive assessed 09/24/22 12/19/24 15:43 Currently or been in a relationship where the following occur: No concerns reported Coding Level of Care Code New Pt Level 4 (14369) Complex EM visit Add On G2211 Diagnoses Ocular myasthenia gravis G70.00 GERD (gastroesophageal reflux disease) K21.9 Cervical spondylosis M47.812 Additional Codes PHQ-9 - 80162 - PHQ-9 Billing: Yes ([id number]) GIA-7 Assessment Billing - GIA-7 Assessment Tool: GIA-7 Assessment 22284 ([id number]) Assessment & Plan Assessment & Plan (1) Ocular myasthenia gravis: Code(s): G70.00 - Myasthenia gravis without (acute) exacerbation Category: Medical Plan: Reviewed last notes from Dr. Green and Dr. Chacon. Proceed with MRIs as ordered, will await results. Recommend continuing azathioprine, Vyvgart, Mestinon for now as advised by Neurology. Questions of Parkinsons (2) GERD (gastroesophageal reflux disease): Code(s): K21.9 - Gastro-esophageal reflux disease without esophagitis Category: Medical Plan: Stable. Continue omeprazole (3) Cervical spondylosis: Code(s): M47.812 - Spondylosis without myelopathy or radiculopathy, cervical region Category: Medical Plan: Proceed with MRI of the cervical spine is ordered to assess for any underlying structural or upper motor neuron pathology. Follow-up with neurology as scheduled Plan Follow-up in the office in 4 months with labs completed following visit today Orders: Orders Complete Blood Count Auto Diff Today D64.9 - Anemia, unspecified, G70.00 - Myasthenia gravis without (acute) exacerbation Lipid Panel Today D64.9 - Anemia, unspecified, G70.00 - Myasthenia gravis without (acute) exacerbation Hemoglobin A1c Today D64.9 - Anemia, unspecified, G70.00 - Myasthenia gravis without (acute) exacerbation Basic Metabolic Panel Today D64.9 - Anemia, unspecified, G70.00 - Myasthenia gravis without (acute) exacerbation Liver Panel Today D64.9 - Anemia, unspecified, G70.00 - Myasthenia gravis without (acute) exacerbation
[2024-12-19 15:52] VITALS: BP 140/66; PULSE 66; RESP 16; TEMP 36.2; O2SAT 99
--- OUTSIDE RECORDS SUMMARY | 2024-12-19 18:53 | XMS_ITS | Clinical Summary ---
Author Organization [facility] Address [address] [place] [address] Care Team Providers Care Foreclosure Home Inspector Name Role Phone System, Provider Not In Primary Care Provider Un available Allergies Active Allergy Reactions Criticality Noted Date Comments Azithromycin Cough Low 10/19/2024 Medications diphenhydrAMINE -acetaminophen (Tylenol PM Extra Strength) 25-500 MG Tab Take by mouth. 3 times Active azaTHIOprine (IMURAN) 50 MG tablet TAKE 2 TABLETS (100 MG TOTAL) BY MOUTH DAILY FOR MYASTHENIA GRAVIS. Active pyridostigmine (MESTINON) 60 MG tablet Take 1 tablet (60 mg total) by mouth 3 (three) times a day. Active OMEprazole (PriLOSEC) 40 MG capsule Take by mouth. Acti ve Calcium-Vitamin D-Vitamin K (Calcium + D) 500-1000-40 MG-UNT-MCG Chew Tab Calcium + D Active Active Problems Problem Noted Date Diagnosed Date PSP (progressive supranuclear palsy) 10/19/2024 Encounters Date Type Department Care Team Description 11/15/2024 Telephone [facility] [address] [place] [phone] Salvatore Mancini MD Appointment; Prior Authorization 11/10/2024 Telephone [facility] [address] [place] [phone] Salvatore Mancini MD Prior Authorization; Other 11/06/2024 Orders Only [facility] [address] [place] [phone] Salvatore Mancini MD PSP (progressive supranuclear palsy) (HCC) (Primary Dx) 11/03/2024 Telephone [facility] [address] [place] [phone] Salvatore Mancini MD Medical Complaint 10/24/2024 Orders Only [facility] [address] [place] [phone] Salvatore Mancini MD Parkinson's disease, unspecified whether dyskinesia present, unspecified whether manifestations fluctuate (HCC) (Primary Dx); Myelopathy (HCC) 10/24/[address] [facility] [address] [place] [phone] Salvatore Mancini MD Other 10/19/2024 12:40 PM EDT Office Visit [facility] [address] [phone] Salvatore Mancini MD Myasthenia gravis without (acute) exacerbation (HCC) (Primary Dx); Parkinson's disease, unspecified whether dyskinesia present, unspecified whether manifestations fluctuate (HCC); PSP (progressive supranuclear palsy) (HCC); Myelopathy (HCC) 10/19/2024 Travel from Last 3 Months Social History Tobacco Use Types Packs/Day Years Used Date Smoking Tobacco: Never Assessed Comments Unknown Sex and Gender Information Value Date Recorded Sex Assigned at Not on file Legal Sex Female 6:58 PM EST Gender Identity Not on file Sexual Orientation Not on file Last Filed Vital Signs Vital Sign Reading Time Taken Comments Blood Pressure 170/83 10/19/2024 12:26 PM EDT Pulse 66 10/19/2024 12:26 PM EDT Temperature - - Respiratory Rate 18 10/19/2024 12:26 PM EDT Oxygen Saturation - - Inhaled Oxygen Concentration - - Weight - - Height - - Body Mass Index - - Plan of Treatment Upcoming Encounters Date Type Department Care Team (Late st Contact Info) Description 12/28/2024 11:10 AM EDT Office Visit [facility] [address] [place] [phone] Salvatore Mancini MD [address] [place], [place] [id number] 01/03/2025 1:00 PM EDT Office Visit [facility] Neurology Nathanael [address] [facility] [address] [place] [phone] Salvatore Mancini MD [address] [place], [place] [id number] Anatoliy Motley DO [address] [facility] [address] [place] [address] Health Maintenance Due Date Last Done Comments Advance Care Planning 1945 Hepatitis C Virus Screening 1945 DTaP/Tdap/Td Vaccines (1 - Tdap) 1965 Pneumococcal Vaccines 50+ (1 of 2 - PCV) 1965 Zoster (Shingles) Vaccine (1 of 2) 1965 DXA Bone Density (Females,Ag es 65 and older) 2011 COVID-19 Vaccine (2 - Pfizer risk series) 07/07/2020 06/16/2020 RSV Vaccine 60 years and old er and Patients (1 - 1-dose 75+ series) 2021 Influenza Vaccine 11/03/2024 Hepatitis B Vaccines Aged Out No long er eligible based on patient's age to complete this [place] [id number] MEDICARE PART A & B [facility] PPO Care Teams Foreclosure Home Inspector Relationship Specialty Start Date End Date System, Provider Not In PCP - General 09/29/24
--- OUTSIDE RECORDS SUMMARY | 2024-12-19 18:53 | XMS_ITS | Encounter Summary ---
Author Organization [facility] Address [address] [place] [address] Care Team Providers Care Mine Inspector Name Role Phone System, Provider Not In Primary Care Provider Un available Reason for Visit * Reason Onset Date Comments Appointment 11/15/2024 Prior Authorization 11/15/2024 Encounter Details Date Type Department Care Team (Late st Contact Info) Description 11/15/[address] [facility] 85 [facility] [address] [place] [phone] Salvatore Mancini MD [facility]4 [place] [address] Appointment; Prior Authorization Social History Tobacco Use Types Packs/Day Years Used Date Smoking Tobacco: Never Assessed Comments Unknown Sex and Gender Information Value Date Recorded Sex Assigned at Not on file Legal Sex Female 6:58 PM EST Gender Identity Not on file Sexual Orientation Not on file documented as of this encounter Miscellaneous Notes * Telephone Encounter - Sunil Branch - 12/14/2024 11:00 AM EDT Radiology called and wanted to know if patient has completed her imaging, they stated she was approved to do imaging from 11/10/24-01/08/25 PA# [id number] with [facility] and curious to patient status... Please advise, thank you. * Telephone Encounter - Phillip Gross MA - 11/15/2024 2:11 PM EDT Received a call in regards to MRI brain and Cervical spine. documented in this encounter Plan of Treatment Upcoming Encounters Date Type Department Care Team (Late st Contact Info) Description 12/28/2024 11:10 AM EDT Office Visit [facility] 85 [facility] [address] [place] [address] Salvatore Mancini MD [facility] [place], [place] [phone] 01/03/2025 1:00 PM EDT Office Visit [facility] Neurology [address] [address] Salvatore Mancini MD [facility] [place], [place] [phone] Anatoliy Motley DO [address] [place] [phone] documented as of this encounter Visit Diagnoses Not on filedocumented in this encounter Care Teams Mine Inspector Relationship Specialty Start Date End Date System, Provider Not In PCP - General 09/29/24 documented as of this encounter
--- OUTSIDE RECORDS SUMMARY | 2024-12-19 18:53 | XMS_ITS | Encounter Summary ---
Author Organization [facility] Address [address] [place] [address] Care Team Providers Care Fitting Room Attendant Name Role Phone System, Provider Not In Primary Care Provider Un available Reason for Visit * Reason Onset Date Comments Prior Authorization 11/10/2024 Other 11/10/2024 Encounter Details Date Type Department Care Team (Late st Contact Info) Description 11/10/2024 Telephone [facility] 85 [facility] [address] [place] [phone] Salvatore Mancini MD [address] [place] [address] Prior Authorization; Other Social History Tobacco Use Types Packs/Day Years Used Date Smoking Tobacco: Never Assessed Comments Unknown Sex and Gender Information Value Date Recorded Sex Assigned at Not on file Legal Sex Female 6:58 PM EST Gender Identity Not on file Sexual Orientation Not on file documented as of this encounter Miscellaneous Notes * Telephone Encounter - Narcisa Salomon MA - 12/15/2024 11:14 AM EDT Spoke with the patient, who confirmed she has an appointment scheduled for imaging on December 18 at 1:15 PM. Location: [facility] Address: [address] [place] [address], [address] [address] * Telephone Encounter - Narcisa Salomon MA - 11/15/2024 3:54 PM EDT I contacted the patient to inform her that her prior authorization was pending. Her informed me that Leni has an appointment at [facility] in [place], [place]. No prior authorization [id number] is needed. * Telephone Encounter - Narcisa Salomon MA - 11/10/2024 2:15 PM EDT Contacted the insurance company and spoke with prior nuclear medicine specialist Pita. She stated that a link will be sent via email to download the clinical notes. Once the notes are submitted, a [id number] review will be conducted by the physician. The best callback number for the [id number] [phone]. Prior authorization is currently pending under . Andrew * Telephone Encounter - Narcisa Salomon MA - 11/10/2024 10:40 AM EDT Initiated prior authorization for MRI of the cervical spine with and without contrast and MRI of the brain without contrast by contacting the patient's insurance to verify if authorization is required. documented in this encounter Plan of Treatment Upcoming Encounters Date Type Department Care Team (Late st Contact Info) Description 12/28/2024 11:10 AM EDT Office Visit [facility] 85 [facility] [address] [place] [phone] Salvatore Mancini MD [facility] [place], [place] [phone] 01/03/2025 1:00 PM EDT Office Visit [facility] Neurology [address] [place] [address] Salvatore Mancini MD [facility] [place], [place] [phone] Anatoliy Motley, 35 [facility] 6 [place] [address] documented as of this encounter Visit Diagnoses Not on filedocumented in this encounter Care Teams Fitting Room Attendant Relationship Specialty Start Date End Date System, Provider Not In PCP - General 09/29/24 documented as of this encounter
--- OUTSIDE RECORDS SUMMARY | 2024-12-19 18:53 | XMS_ITS ---
Author Name [facility] Organization Unknown History of Medication Use Medication Directions Dispensed Refills Start Date End Date Stat us azaTHIOprine (IMURAN) 50 MG tablet TAKE 2 TABLETS (100 MG TOTAL) BY MOUTH DAILY FOR MYASTHENIA GRAVIS. 08/26/2024 active Calcium-Vitamin D-Vitamin K (Calcium + D) 500-1000-40 MG-UNT-MCG Chew Tab Calcium + D acti ve diphenhydrAMINE-acetam inophen (Tylenol PM Extra Strength) 25-500 MG Tab Take by mouth. 3 times active OMEprazole (PriLOSEC) 40 MG capsule Take by mouth. active pyridostigmine (MESTINON) 60 MG tablet Take 1 tablet (60 mg total) by mouth 3 (three) times a day. active Allergies Allergen Reaction Severity Comment Documented Date Source Statu s AZITHROMYCIN COUGH 10/19/2024 CCT active Problems Problem Status Onset Date Problem Type Date of Resoluti on Source PSP (progressive supranuclear palsy) active 2024-10-19 ProblemAct CCT Encounters Encounter Type Encounter Reason Primary Diagnosis Location Date Ambulatory Myasthenia gravis without (acute) exacerbation Myasthenia gravis without (acute) exacerbation [facility] 10/19/2024 Care Team Organization Name Specialty Phone Email Start Date End Da oziel [facility]ervoir Engineering Manager 10/19/2024 11/17/2024 [facility] PROVIDER SYSTEM Primary Care 09/29/2024
--- OUTSIDE RECORDS SUMMARY | 2024-12-19 18:53 | XMS_ITS | Patient Health Record ---
Author [facility] [place] Address [address] [facility] [place] [address] Care Team Providers Care Retail Stock Clerk Name Role Phone Andry Mendoza MD Primary Care Provider Unavaila Jerrod Lugo Unavailable [phone] Allergies Allergen (clinical drug ingredient) Drug/Non Drug [...] COVID-19 Pfizer BioNTech Vaccine Unknown 06/16/2020 Administered 05/23/2020 Social History Tobacco Use: Social History [...] W/U Status Risk Notes Problem Plantar wart (15206006) Plantar wart (B07.0) Active confirmed Plan Of Treatment Pending Test Test Name Order Date [id number] Destruction, 04-1812/27/2020 [id number] Destruction, 04-1807/11/2021 [id number] Destruction, 04-1802/03/2022 [id number] Plate 05/17/2015 Insurance Providers Payer Name Payer Address Payer Phone Subscriber Number Group Number Insured Name Patient Relationship to Insured Coverage Start Date Coverage End Date BlueCare 65 Medicare Preferred [address] [place] [address] [id number] Leni Bright Self - patient is the insured Medical (General) History Medical History History ICD Code arthritis Back pain Cataracts Reflux Sinus conditions Measles Mumps Chicken pox Surgical History Surgery Date(Month/Year) tonsillectomy and adenoidectomy 1952 appendectomy 1966 dilatation and curettage 2000
--- OUTSIDE RECORDS SUMMARY | 2024-12-19 18:53 | XMS_ITS | Patient Health Record ---
Author Organization [facility] Address [address] [place] [address] Care Team Providers Care Asbestos Cloth Inspector Name Role Phone Reji (RETIRED) Andry NIELSON Primary Care Provide r Unavailable Randall Proctor Unavailable [phone] Reason For Referral No Information Problems Problem Type SNOMED Code ICD Code Onset Dates Problem Status W/U Status Risk Notes Problem Iron deficiency anemia (92752197) Iron deficiency anemia (D50.9) Active confirmed Problem Gastric ulcer (572990759) Gastric ulcer (K25.9) Active confirmed Plan Of Treatment No Information Insurance Providers Payer Name Payer Address Payer Phone Subscriber Number Group Number Insured Name Patient Relationship to Insured Coverage Start Date Coverage End Date [facility] [address] [place] [address] [id number] ELIZABETH ARAGON Self - patient is the insured
== END 2024-12-19 16:18 | disposition home or self-care (01) ==
LOC: HO.HMCHD 15:40
PROVIDERS: Visit Provider Physician Assistant
DX: G70.00 Myasthenia gravis without (acute) exacerbation (principal); K21.9 Gastro-esophageal reflux disease without esophagitis; M47.812 Spondylosis without myelopathy or radiculopathy, cervical region

== ENCOUNTER → 2024-12-19 15:40 | Outpatient (BNVA) | payer MEDICARE, SELFPAY | PROVIDERS: Visit Provider Physician Assistant | DX: G70.00 Myasthenia gravis without (acute) exacerbation (principal); K21.9 Gastro-esophageal reflux disease without esophagitis; M47.812 Spondylosis without myelopathy or radiculopathy, cervical region; G62.9 Polyneuropathy, unspecified; N39.41 Urge incontinence; D50.9 Iron deficiency anemia, unspecified; I10 Essential (primary) hypertension; Z79.899 Other long term (current) drug therapy; Z13.31 Encounter for screening for depression | CPT/HCPCS: 96127; 99202 ==

== ENCOUNTER 2024-12-28 13:55 | Outpatient (AMB) | payer MEDICARE, SELFPAY ==
--- NOTE | 2024-12-28 13:57 | A.OFFVIS_ITS ---
Vital Signs 12/28/24 14:02 Height 5 ft 4 in BP 148/82 H Blood Pressure Location Rt brachial Position Sitting Pulse 65 Pulse Source Pulse Oximeter Pulse Oximetry (%) 98 Oxygen Delivery Method Room Air Intake Visit Reasons: 4 mo follow up Intake Note: Follow up Cervicalgia, MG Delivery Coordinator Required: No Accompanied by: Spouse Allergies ciprofloxacin (Cipro) Allergy (Intermediate, Verified 12/28/24 14:03) Itching Biaxin Allergy (Severe, Uncoded 12/19/24 15:42) Dizziness HPI Comments Details: 79y/o female calls for follow up of seronegative ocular myasthenia.she was seen by Neuromuscular specialist at [place] - reviewed notes . she is scheduled to see a specialist for her eye in [place] this November. she reports droopy eyelids for 4 years now. It fluctuates and worsens in the evenings. its worse in her right eye.she also has double vision worsens when she is fatigued. she denies speech difficulty or any problems with swallowing she also has lumbar spondylosis and has gait issues related to that. she uses a walker and had some falls. she has a diagnosis of peripheral neuropathy. [facility] Medical History (Updated 12/28/24 @ 14:24 by Haritha Green MD) Bradykinesia Anemia Abnormal brain MRI Meningioma of orbit Diplopia Ocular myasthenia gravis Cervicalgia Cervical spondylosis Ptosis Stress incontinence [place] Osteoarthritis Lumbar disc disease GERD (gastroesophageal reflux disease) Arthritis of left knee Surgical History History of colonoscopy (~01/26/23) Hx of esophagogastroduodenoscopy S/P D&C (status post dilation and curettage) History of total left knee replacement (TKR) (02/18/21) History of cataract extraction Hx of appendectomy Hx of tonsillectomy Family History Mother Pancreatic cancer Ovarian cancer Father Heart attack Pancreatic cancer Social History Household Members: Spouse Household Members Other:: 3 Housing: House Are you a primary student career development specialist to a significant other at home: No Do you presently have visiting nurse or other home services: No Alcohol intake: never Patient Tobacco Use Status: Former Tobacco user Tobacco use type: Cigarette e-Cigarette/Vaping Use: Never Used Second Hand Smoke Exposure: No service: No Current occupational status: retired Current occupation: rt handed Cognitive needs: Yes (Walker) Hearing needs: No Vision needs: Yes (Reading glasses) Physical Exam Vital Signs: Last Vital Signs Pulse 65 12/28/24 14:02 BP 148/82 H 12/28/24 14:02 Pulse Ox 98 12/28/24 14:02 Oxygen Delivery Method Room Air 12/28/24 14:02 Const General: cooperative; No comfortable Nutritional Appearance: overweight Orientation/consciousness: patient oriented x3 Eyes Pupils: Equal, round and reactive pupils present Neuro Other: Severe ptosis bilateral- no upgaze - better than last visit kyphosis - slow using walker cog wheel rigidity 2 UE and bradykinesia General: patient oriented x3, tone normal and moves all extremities Cranial nerves: Yes Equal, round and reactive pupils present, Yes Nystagmus not present, Yes Normal facial strength present and Yes Midline tongue present Cognition (Neuro): normal cognition Gait exam (Neuro): Antalgic gait present Motor exam (neuro): 5/5 motor strength present throughout and Normal motor muscle tone present throughout Coordination: [id number]-ht-[id number] test normal Assessment & Plan Assessment & Plan (1) Ocular myasthenia gravis: Code(s): G70.00 - Myasthenia gravis without (acute) exacerbation Category: Medical (2) Cervicalgia: Code(s): M54.2 - Cervicalgia Category: Medical (3) Abnormal brain MRI: Comment: anterior cranial fossa lesion - extra axial Code(s): R90.89 - Other abnormal findings on diagnostic imaging of central nervous system Category: Medical (4) Lumbar spondylosis: Code(s): M47.816 - Spondylosis without myelopathy or radiculopathy, lumbar region Category: Medical (5) Chronic pain syndrome: Code(s): G89.4 - Chronic pain syndrome Category: Medical Plan Anti MUSK antibody was negative Pyridostigmine 60mg 1-2-2-1 Imuran 100mg qd - taper to 50mg qd and stop CT chest reviewed . No enlarged thymus F/u with Dr Hodges Reviewed notes from [facility] . He does not think it is Myasthenia so i will cancell Vyvgart order He thinks that it could be parkinsonism . I dont believe it is parkinsons but will trial a small dose of carbidopa/ levodopa 25/100 1 tab 2 bid TRACE scan MRI brain with kayla and orbits - reviewed- Right anterior cranial fossa meningioma is seen without invasion into the orbits or displacement of extraocular muscle. Orders: Orders [facility] Today G20.C - Parkinsonism, unspecified, R25.8 - Other abnormal involuntary movements Medications: New carbidopa-levodopa 25-100 mg (Sinemet) 1 tab PO BID 60 tabs 0RF Coding Level of Care Code Est Pt Level 4 (75152) Complex EM visit Add On G2211 Diagnoses Ocular myasthenia gravis G70.00 Cervicalgia M54.2 Abnormal brain MRI R90.89 Lumbar spondylosis M47.816 Chronic pain syndrome G89.4
[2024-12-28 14:02] VITALS: BP 148/82; PULSE 65; O2SAT 98
--- OUTSIDE RECORDS SUMMARY | 2024-12-28 18:25 | XMS_ITS | Clinical Summary ---
Author Organization [facility] Address [address] [place] [address] Care Team Providers Care Poultry Tender Name Role Phone System, Provider Not In [...] Type Department Care Team Description 11/15/[address] [facility] [address] [place] [phone] Salvatore Mancini MD Appointment; Prior Authorization 11/10/[address] [facility] [address] [place] [phone] Salvatore Mancini MD Prior Authorization; Other 11/06/2024 Orders Only [facility] [address] [place] [phone] Salvatore Mancini MD PSP (progressive supranuclear palsy) ([facility]) (Primary Dx) 11/03/2024 Telephone [facility]rom[facility] 85 [facility] [address] [place] [address] Salvatore Mancini MD Medical Complaint 10/24/2024 Orders Only [facility] 85 [facility] [address] [place] [address] Salvatore Mancini MD Parkinson's disease, unspecified whether dyskinesia present, unspecified whether manifestations fluctuate (HCC) (Primary Dx); Myelopathy (HCC) 10/24/2024 Telephone [facility] [address] [address] Salvatore Mancini MD Other 10/19/2024 12:40 PM EDT Office Visit [facility] [address] [address] Salvatore Mancini MD Myasthenia gravis [...] Care Team (Late st Contact Info) Description 01/03/2025 1:00 PM EDT Office Visit [facility] Neurology [address] [phone] Salvatore Mancini MD [address] [place], [place] [phone] Tolu Anatoliy, 35 [facility] [address] [place] [address] 04/25/2025 1:00 PM EST Procedure visit [facility] 85 [facility] [address] [place] [address] Salvatore Mancini MD [address] [place], [place] [phone] Lidia Whitehead MD [address] [facility] [address] [place] [address] Health Maintenance Due Date Last Done Comments [...] patient's age to complete this topic Insurance MEDICARE PART A & B [facility] PPO Care Teams Poultry Tender Relationship Specialty Start Date End Date System, Provider Not In PCP - General 09/29/24
--- OUTSIDE RECORDS SUMMARY | 2024-12-28 18:25 | XMS_ITS | Patient Health Record ---
Author Organization [facility] Address [address] [place] [address] Care Team Providers Care Visual Communications Instructor Name Role Phone Reji (RETIRED) Andry NIELSON Primary Care Provide r Unavailable Randall Proctor Unavailable [phone] Reason For Referral No Information Problems Problem Type SNOMED Code ICD Code Onset Dates Problem Status W/U Status Risk Notes Problem Iron deficiency anemia (52927099) Iron deficiency anemia (D50.9) Active confirmed Problem Gastric ulcer (113993816) Gastric ulcer (K25.9) Active confirmed Plan Of Treatment No Information Insurance Providers Payer Name Payer Address Payer Phone Subscriber Number Group Number Insured Name Patient Relationship to Insured Coverage Start Date Coverage End Date [facility] [address] [place] [address] [id number] ELIZABETH ARAGON Self - patient is the insured
--- OUTSIDE RECORDS SUMMARY | 2024-12-28 18:26 | XMS_ITS | Patient Health Record ---
Author [facility] [place] Address [address] [facility] [place] [address] Care Team Providers Care Manager Aviation Name Role Phone Andry Mendoza MD Primary Care Provider Unavaila Jerrod Lugo Unavailable [phone] Allergies Allergen (clinical drug ingredient) Drug/Non Drug [...] W/U Status Risk Notes Problem Plantar wart (44911970) Plantar wart (B07.0) Active confirmed Plan Of Treatment Pending Test Test Name Order Date [id number] Destruction, 04-1812/27/2020 [id number] Destruction, 04-1807/11/2021 [id number] Destruction, 04-1802/03/2022 [id number] Plate 05/17/2015 Insurance Providers Payer Name Payer Address Payer Phone Subscriber Number Group Number Insured Name Patient Relationship to Insured Coverage Start Date Coverage End Date BlueCare 65 Medicare Preferred [address] [place] [address] [id number] Leni Bright Self - patient is the insured Medical (General) History Medical History History ICD Code arthritis Back pain Cataracts Reflux Sinus conditions Measles Mumps Chicken pox Surgical History Surgery Date(Month/Year) tonsillectomy and adenoidectomy 1952 appendectomy 1966 dilatation and curettage 2000
== END 2024-12-28 14:39 | disposition home or self-care (01) ==
LOC: HO.HSMS 13:56
PROVIDERS: PCP Internal Medicine; Visit Provider Psychiatry & Neurology Neurology
DX: G70.00 Myasthenia gravis without (acute) exacerbation (principal); M54.2 Cervicalgia; R90.89 Other abnormal findings on diagnostic imaging of central nervous system; M47.816 Spondylosis without myelopathy or radiculopathy, lumbar region; G89.4 Chronic pain syndrome
CPT/HCPCS: 99214; G2211

== ENCOUNTER → 2024-12-28 13:55 | Outpatient (BNVA) | payer MEDICARE, SELFPAY | PROVIDERS: PCP Internal Medicine; Visit Provider Psychiatry & Neurology Neurology | DX: M54.2 Cervicalgia (principal); M47.816 Spondylosis without myelopathy or radiculopathy, lumbar region; G89.4 Chronic pain syndrome; R90.89 Other abnormal findings on diagnostic imaging of central nervous system; G70.00 Myasthenia gravis without (acute) exacerbation | CPT/HCPCS: 99212 ==

== ENCOUNTER 2024-12-30 14:49 | Outpatient (REF) | payer MEDICARE, SELFPAY ==
--- NOTE | ~2024-12-30 | MR_ITS ---
EXAMINATION: MR CERVICAL SPINE WITHOUT AND WITH CONTRAST CLINICAL INFORMATION: Disease of the spine. COMPARISON: Correlated to CT dated February 10, 2024. TECHNIQUE: MRI of the cervical spine was obtained using routine sequences with and without contrast. Intravenous contrast: (Gadavist) 6.5 mL. No reported immediate complications FINDINGS: There is a 27 mm extra-axial homogeneously enhancing mass centered above the cribriform plate posterior to the apophysis alberto nagi with a likely dural tail enhancement. No abnormal enhancement within the cervical spinal cord or the prevertebral compartment is. Craniocervical junction is intact. Normal position of the cerebellar tonsils. No bone marrow STIR signal abnormality. Bone marrow inhomogeneity. Multilevel disc desiccation and marginal osteophyte formation from C3-4 to C6-7 pronounced at C3-4 and C4-5 levels. Grade 1 anterolisthesis C4-5, C6-7 and C7-T1. Grade 1 anterolisthesis, T2-3, T3-4 and T4-5 levels. There is buckling deformity of the dorsal aspect of the thecal sac likely secondary to ligamentum flavum hypertrophy at C5-6. The cervical spinal cord signal is normal. C2-3: No disc herniation. No neuroforamina stenosis. C3-4: No disc herniation. Left neuroforamina narrowing on a jet disc basis. C4-5: Broad-based disc bulging. Left facet joint hypertrophy. Reduced AP diameter of the thecal sac and ventral deformity of the thecal sac without cord compression. No neuroforamina stenosis. C5-6: Left-sided disc osteophyte compresses formation extending into the foramen resulting in ventral deformity of the spinal cord and left neuroforamina and stenosis. C6-7: Broad-based disc osteophyte consummation. No cord compression. No neuroforamina stenosis. Right-sided perineural cysts. C7-T1: No disc herniation. No cord compression or neuroforamina stenosis. T1-T2: No disc herniation. No neuroforamina stenosis. No prevertebral compartment hematoma, mass or fluid collection. Flow-void signal within the main vessels is normal. Left vertebral artery is dominant. MR/MR cervical spine wo/w con IMPRESSION: Multilevel cervical thoracic spondylosis resulting in left neuroforamina stenosis C3-4 and central spinal canal and left neuroforamina and stenosis at C5-6. No cord compression, cord edema and or myelopathy. No abnormal enhancement within the cervical spinal cord or the prevertebral compartment. 27 mm enhancing lesion, anterior cranial fossa, cribriform plate, likely meningioma. Please refer to the MRI brain. Electronically signed by: Tanner Gregorio MD 01/01/2025 08:24 AM EDT
--- NOTE | ~2024-12-30 | MR_ITS ---
EXAMINATION: MR BRAIN WITHOUT CONTRAST CLINICAL INFORMATION: Disease of spinal cord. Parkinson's disease. COMPARISON: April 20, 2023. TECHNIQUE: MRI of the brain was obtained using routine sequences without contrast. FINDINGS: There is a 26 x 26 x 16 mm extra-axial isointense T1 slightly hyperintense T2 FLAIR with slight restricted diffusion and susceptibility signal abnormality mass center at the cribriform plate and slightly posterior to the apophysis alberto nagi. There is mass effect and extrinsic compression upon the inferior frontal gyri/orbital frontal gyri and a 36 mm hyperintense T2 FLAIR signal in the left perilesional frontal white matter. No acute intracranial hemorrhage, hydrocephalus or herniation. There is no gross midline shift. There is a susceptibility signal within the right superior frontal gyrus/cingulate gyrus. Bilateral multifocal punctate hyperintense T2 FLAIR signal within the deep periventricular and deep white matter both the hemispheres involving centrum semiovale and mcmahon radiata. Probable old lacunar infarcts in basal ganglia and extracapsular. Hyperintense T2 FLAIR signal within the quadrigeminal plate and superior cerebellar peduncles. Flow-void signal within the main cerebral vessels is normal. Prominence of the extra-axial CSF spaces cerebral sulci and ventricles. Cisterna magna, right posterior cranial fossa. CSF prominence in the Meckel's caves. Sellar/suprasellar region demonstrated no gross masses or signal abnormality. The cerebellar tonsils are in normal position. MR/MR head/brain wo con IMPRESSION: 26 x 26 x 16 mm extra-axial , restricted diffusion midline cribriform plate/olfactory groove mass with NEW left-sided perilesional vasogenic edema involving left frontal lobe.. 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 No acute stroke/nonhemorrhagic ischemia or acute intracranial hemorrhage.. Electronically signed by: Tanner Gregorio MD 01/01/2025 07:56 AM EDT
--- OUTSIDE RECORDS SUMMARY | 2024-12-30 15:07 | XMS_ITS | Patient Health Record ---
Author [facility] [place] Address [address] [facility] [place] [address] Care Team Providers Care Canvas Cutter Machine Name Role Phone Andry Mendoza MD Primary Care Provider Unavaila Jerrod Lugo Unavailable [phone] Allergies Allergen (clinical drug ingredient) Drug/Non Drug [...] W/U Status Risk Notes Problem Plantar wart (09936645) Plantar wart (B07.0) Active confirmed Plan Of Treatment Pending Test Test Name Order Date [id number] Destruction, 04-1812/27/2020 [id number] Destruction, 04-1807/11/2021 [id number] Destruction, 04-1802/03/2022 [id number] Plate 05/17/2015 Insurance Providers Payer Name Payer Address Payer Phone Subscriber Number Group Number Insured Name Patient Relationship to Insured Coverage Start Date Coverage End Date BlueCare 65 Medicare Preferred [address] [place] [address] [id number] Leni Bright Self - patient is the insured Medical (General) History Medical History History ICD Code arthritis Back pain Cataracts Reflux Sinus conditions Measles Mumps Chicken pox Surgical History Surgery Date(Month/Year) tonsillectomy and adenoidectomy 1952 appendectomy 1966 dilatation and curettage 2000
--- OUTSIDE RECORDS SUMMARY | 2024-12-30 15:07 | XMS_ITS | Patient Health Record ---
Author Organization [facility] Address [address] [place] [address] Care Team Providers Care Inspector Multifocal Lens Name Role Phone Reji (RETIRED) Andry NIELSON Primary Care Provide r Unavailable Randall Proctor Unavailable [phone] Reason For Referral No Information Problems Problem Type SNOMED Code ICD Code Onset Dates Problem Status W/U Status Risk Notes Problem Iron deficiency anemia (44546427) Iron deficiency anemia (D50.9) Active confirmed Problem Gastric ulcer (386870783) Gastric ulcer (K25.9) Active confirmed Plan Of Treatment No Information Insurance Providers Payer Name Payer Address Payer Phone Subscriber Number Group Number Insured Name Patient Relationship to Insured Coverage Start Date Coverage End Date [facility] [address] [place] [address] [id number] ELIZABETH ARAGON Self - patient is the insured
--- OUTSIDE RECORDS SUMMARY | 2024-12-30 15:07 | XMS_ITS | Clinical Summary ---
Author Organization [facility] Address [address] [place] [address] Care Team Providers Care Admissions Clinician Name Role Phone System, Provider Not In [...] Type Department Care Team Description 11/15/2024 Telephone [facility] [address] [place] [id number] Salvatore Mancini MD Appointment; Prior Authorization 11/10/2024 Telephone [facility] [address] [place] [phone] Salvatore Mancini MD Prior Authorization; Other 11/06/2024 Orders Only [facility] [address] [place] [phone] Salvatore Mancini MD PSP (progressive supranuclear palsy) ([facility]) (Primary Dx) 11/03/2024 Telephone [facility] [address] [facility] [address] [place] [phone] Salvatore Mancini MD Medical Complaint 10/24/2024 Orders Only [facility] [address] [facility] [address] [place] [phone] Salvatore Mancini MD Parkinson's disease, unspecified whether dyskinesia present, unspecified whether manifestations fluctuate (HCC) (Primary Dx); Myelopathy (HCC) 10/24/2024 Telephone [facility] [address] [phone] Salvatore Mancini MD Other 10/19/2024 12:40 PM EDT Office Visit [facility] [address] [phone] Salvatore Mancini MD Myasthenia gravis [...] Description 01/03/2025 1:00 PM EDT Office Visit [facility] Neurology [address] [phone] Salvatore Mancini MD [address] [place], [place] [id number] Tolu Anatoliy, [address] [facility] [address] [place] [address] 04/25/2025 1:00 PM EST Procedure visit [facility] [address] [facility] [address] [place] [address] Salvatore Mancini MD [address] [place], [place] [id number] Lidia Whitehead MD [address] [facility] [address] [place] [address] Health Maintenance Due Date Last Done Comments [...] topic Insurance MEDICARE PART A & B [facility] PPO Care Teams Admissions Clinician Relationship Specialty Start Date End Date System, Provider Not In PCP - General 09/29/24
== END 2024-12-30 14:50 | disposition home or self-care (01) ==
LOC: HO.MRI 14:49
PROVIDERS: Visit Provider Psychiatry & Neurology Neurology
DX: G95.9 Disease of spinal cord, unspecified (principal); G20.A1 Parkinson's disease without dyskinesia, without mention of fluctuations
CPT/HCPCS: 70551; 72156; A9585

== ENCOUNTER → 2024-12-30 15:06 | Outpatient (BNV) | payer MEDICARE, SELFPAY | PROVIDERS: Visit Provider Radiology Diagnostic Radiology | DX: M47.813 Spondylosis without myelopathy or radiculopathy, cervicothoracic region (principal); M48.02 Spinal stenosis, cervical region; R90.0 Intracranial space-occupying lesion found on diagnostic imaging of central nervous system; G20.C Parkinsonism, unspecified; G95.9 Disease of spinal cord, unspecified | CPT/HCPCS: 70551; 72156 ==

== ENCOUNTER 2025-02-14 17:53 | Emergency (ER) | payer MEDICARE, SELFPAY ==
[2025-02-14 17:57] VITALS: BP 157/90; PULSE 65; RESP 18; TEMP 36.7; O2SAT 98; BMI 25.6
--- NOTE | 2025-02-14 17:58 | ED_ITS ---
HPI - General Adult General Chief complaint: General Medical Stated complaint: diarrhea (sent by neurologist) Time Seen by Provider: 02/14/25 19:41 History of Present Illness ED Provider: ted [place] narrative: Author / Clinician: Humberto Mena MD (Emergency Medicine) Chief Complaint Diarrhea following recent nuclear medicine study. History of Present Illness Patient was evaluated in the Emergency Department at the direct request of her neurologist, who wanted her to come in for evaluation. She underwent a nuclear scan on Wednesday (involving both an oral agent and an IV injection). She was well on Wednesday and Wednesday, but beginning Wednesday developed watery, black-colored diarrhea occurring once each morning on Wednesday, Wednesday, and again this morning (Wednesday). She denies hematochezia or overt blood in the stool. She reports prior urinary incontinence requiring pads, but current episodes are characterized by sudden urgency with passage of stool rather than true incontinence. No associated abdominal pain or tenderness. She has been able to tolerate oral intake of fluids and food. No recent travel, antibiotic use, or unusual foods other than ice cream on Wednesday night. Neurology is evaluating her for possible myasthenia gravis versus Parkinson?s disease and was concerned about possible dehydration after today?s clinic visit, prompting ED evaluation. Review of Systems ? Gastrointestinal: Reports 3 days of morning watery, black diarrhea; denies abdominal pain; denies blood in stool; no nausea or vomiting reported. ? : History of urinary incontinence. ? Other systems not discussed in the encounter are not documented. Physical Examination Vital Signs: Physical Exam: - General: Awake, alert, in no acute distress. - HEENT: Mucous membranes moist. - Abdomen: Soft, non-tender, no distention. - Skin: No signs of dehydration noted. Emergency Department Course Laboratory studies reviewed and did not indicate significant dehydration. No intravenous fluids administered after discussion with patient; decision made to manage with oral hydration. No episodes of diarrhea occurred during ED stay. Assessment & Plan Diagnosis: Acute watery diarrhea of unclear etiology (temporal relationship to recent nuclear medicine study vs dietary trigger vs viral illness). Plan: - Encourage increased oral fluid intake over the next several days. - Monitor stool frequency and character; return to ED for >5?7 episodes in a day, signs of dehydration, inability to tolerate oral intake, or any new concerning symptoms. - Follow up with neurology as previously scheduled for ongoing evaluation of suspected myasthenia gravis vs Parkinson?s disease. though she reports dark or black stool she has no epigastric pain or tenderness no history of GI bleeding no clinical suggestion of PUD or GI or rectal bleeding she was not able to provide stool sample here in his eager to go home. Her hemoglobin is stable. Doubt GI bleeding Disposition Discharged home with return precautions as outlined above. Related Data Home Medications ?Medication ?Instructions ?Recorded ?Confirmed calcium carb-ergocalciferol (vit 1 tab PO DAILY 02/14/24 D2) 600 mg calcium-200 unit tablet multivitamin 1 tab PO DAILY 09/23/2202/03 biotin 1,250 mcg-collagen 50 tab PO 12/22/22 02/14/24 mg-vit C 67.5 mg-vit E-herbal chew tablet Previous Rx's ?Medication ?Instructions ?Recorded acetaminophen 325 mg tablet 650 mg (2 x 325 mg) PO Q6H PRN 02/20/21 Pain, Mild (Pain Scale 1-3) 30 days #240 tabs azathioprine 50 mg tablet 100 mg (2 x 50 mg) PO DAILY 08/21/24 Myasthenia Gravis 90 days #180 tabs epinephrine 0.3 mg/0.3 mL 0.3 mg (0.3 mL) IM Q10M PRN 10/17/24 injection, auto-injector (EpiPen) anaphylaxis #1 ea omeprazole 40 mg capsule,delayed 40 mg PO DAILY #90 ca ps 11/28/24 release pyridostigmine bromide 60 mg 120 mg (2 x 60 mg) PO TID #180 tabs 01/24/25 tablet (Mestinon) carbidopa 25 mg-levodopa 100 mg 1 tab PO BID parkinson s 3 months 01/26/25 tablet (Sinemet) #180 tabs Allergies Allergy/AdvReac Type Severity Reaction Status Date / Time ciprofloxacin (Cipro) Allergy Intermediate Itching Verified 02/14/25 18:00 Biaxin Allergy Severe Dizziness Uncoded 02/14/25 18:00 [facility] Past Medical History Medical History (Updated 02/15/25 @ 00:00 by Background Daemon) Bradykinesia Anemia Abnormal brain MRI Meningioma of orbit Diplopia Ocular myasthenia gravis Cervicalgia Cervical spondylosis Ptosis Stress incontinence Hayfever Osteoarthritis Lumbar disc disease GERD (gastroesophageal reflux disease) Arthritis of left knee Surgical History History of colonoscopy (~01/26/23) Hx of esophagogastroduodenoscopy S/P D&C (status post dilation and curettage) History of total left knee replacement (TKR) (02/18/21) History of cataract extraction Hx of appendectomy Hx of tonsillectomy Family History Family History Mother Pancreatic cancer Ovarian cancer Father Heart attack Pancreatic cancer Social History Social History Household Members: Spouse Household Members Other:: 3 Housing: House Are you a primary career services representative to a significant other at home: No Do you presently have visiting nurse or other home services: No Alcohol intake: never Patient Tobacco Use Status: Former Tobacco user Tobacco use type: Cigarette e-Cigarette/Vaping Use: Never Used Second Hand Smoke Exposure: No Advance Directives: No Advance Directives Information Provided: No Do you have a plan to hurt others: No Plan service: No Current occupational status: retired Current occupation: rt handed Cognitive needs: Yes (Walker) Hearing needs: No Vision needs: Yes (Reading glasses) Physical Exam ED Vital Signs: Vital Signs - 24 hr 02/14/25 17:57 02/14/25 18:28 02/14/25 19:21 Temperature 98.1 F 98.3 F Pulse Rate 65 62 60 Respiratory Rate 18 16 18 Blood Pressure 157/90 H 170/70 H 159/68 H Pulse Oximetry 98 97 97 Oxygen Delivery Method Room Air Room Air Room Air 02/14/25 21:03 Temperature 98.3 F Pulse Rate 60 Respiratory Rate 18 Blood Pressure 159/68 H Pulse Oximetry 97 Oxygen Delivery Method Room Air BMI result Body Mass Index 25.6 Course Course Course Narrative: This is a Rapid Medical Examination (RME) performed by Ankita Griffiths PA-C in triage. Full HPI, ROS, assessment and treatment plan per primary provider in the Main ED. Hx: 80 yo F here for eval of diarrhea x3 days. appeared to happen after having a nuclear test at [facility]. follows w/ neurologist dr. garrison - being worked up for parkinsons v MG. advised to come to the ED to check her kidneys. only complains od watery diarrhea - no recent abx. no N/V, abd pain. Plan: labs Medical Decision Making Lab Data MDM Lab Attestation statement: I reviewed the patient's lab results. 02/14/25 18:24 02/14/25 18:24 Labs: Lab Results 02/14/25 02/14/25 Range/Units 18:24 19:34 WBC 5.7 (4.8-10.8) X10*3/uL RBC 3.63 L (4.20-5.50) X10*6/uL Hgb 11.8 L (12.0-16.0) g/dl Hct 37.1 (37.0-47.0) % MCV 102.2 H (80.0-98.0) fL MCH 32.5 (27.0-33.0) pg MCHC 31.8 (31.0-35.0) g/dl RDW 12.9 (11.0-16.0) % Plt Count 300 (160-400) X10*3/uL MPV 9.7 (9.4-12.3) fL Immature Gran % (Auto) 0.4 (0.0-0.4) % Neut % (Auto) 71.6 (45-73) % Lymph % (Auto) 19.4 L (20-40) % [place] % (Auto) 7.2 (2-11) % Eos % (Auto) 0.5 (0-4) % Baso % (Auto) 0.9 (0-2) % Lymph # (Auto) 1.1 L (1.2-4.9) X10*3/uL [place] # (Auto) 0.4 (0.1-1.2) X10*3/uL Eos # (Auto) 0.0 (0.0-0.4) X10*3/uL Baso # (Auto) 0.1 (0.0-0.2) X10*3/uL Abs Immat Gran (auto) 0.02 (0.00-0.03) X10*3/uL Absolute Neuts (auto) 4.1 (2.0-8.3) x10*3/uL Absolute Nucleated RBC 0.000 (0.0-0.012) X10*3/uL Nucleated RBC % (auto) 0.0 (0.0-0.2) /100WBC Sodium 142 (135-145) mmol/L Potassium 4.2 (3.3-5.1) mmol/L Chloride 109 H (96-108) mmol/L Carbon Dioxide 29 (22-29) mmol/L Anion Gap 8 L (12-20) BUN 14 (9-16) mg/dL Creatinine 0.87 (0.5-1.4) mg/dL Estim Creat Clear Calc 45.9 Estimated GFR > 60 Random Glucose 109 (60-115) mg/dL Calcium 9.4 (8.4-10.2) mg/dL Magnesium 2.1 (1.6-2.6) mg/dL Total Bilirubin 0.2 (0.0-1.0) mg/dL AST 20 (5-31) U/L ALT < 6 (0-31) U/L Alkaline Phosphatase 55 (39-117) U/L Total Protein 6.8 (6.5-8.0) g/dL Albumin 4.3 (3.5-5.0) g/dL Lipase 28 (8-78) U/L Urine Color Yellow Urine Appearance Clear Urine pH 7.0 (5.0-9.0) Ur Specific [place] 1.015 (1.005-1.025) Urine Protein Negative (Neg-Trace) mg/dL Urine Glucose (UA) Negative (Negative) mg/dL Urine Ketones Negative (Negative) mg/dL Urine Blood Negative (Negative) Urine Nitrite Negative (Negative) Ur Leukocyte Esterase Small (1+) H (Negative) Urine RBC 0-2 (0-2) /HPF Urine WBC 6-10 H (0-5) /HPF Ur Squamous Epith Cells 0-2 (0-2) /HPF Urine Bacteria None Seen (None Seen) Hyaline Casts 0-2 (0-2) /LPF Discharge Plan Discharge Clinical Impression: Diarrhea Patient Disposition: Home, Self-Care Additional Instructions: Diarrhea Discharge Instructions Discharge Instructions for Diarrhea - Drink plenty of fluids. Water, clear broths, oral rehydration solutions (like Pedialyte), and diluted juices are best. Avoid sugary sodas, sports drinks, and apple juice, as these can make diarrhea worse. - Eat as tolerated. You may return to your normal diet as soon as you feel able. Start with bland foods if you prefer (such as rice, toast, bananas, or applesauce). - Rest and take care of yourself. Most diarrhea gets better in a few days. Watch for these warning signs: - Signs of dehydration: dry mouth, feeling very thirsty, little or no urine, dizziness, or weakness. - Diarrhea that gets much worse (more than 5?7 episodes in a day). - Blood in your stool or black, tarry stools. - Severe belly pain, vomiting, or inability to keep fluids down. - Fever higher than 101?F (38.3?C). Return to the emergency department or call your doctor if you notice any of these symptoms. If you have any questions or your symptoms do not improve in a few days, contact your healthcare provider. Prescriptions: No Action azathioprine 50 mg tablet 100 mg PO DAILY MDD 100mg 90 Days Qty: 180 3RF Rx Instructions: take 2(50mg tablets daily) of azathioprine for myasthenia gravis. epinephrine [EpiPen] 0.3 mg/0.3 mL auto-injector 0.3 mg IM Q10M PRN (Reason: anaphylaxis) Qty: 1 0RF Rx Instructions: for 2 doses omeprazole 40 mg capsule,delayed release(DR/EC) 40 mg PO DAILY Qty: 90 0RF pyridostigmine bromide [Mestinon] 60 mg tablet 120 mg PO TID Qty: 180 3RF carbidopa-levodopa [Sinemet] 25-100 mg tablet 1 tab PO BID MDD 2 tablets 90 Days Qty: 180 0RF Rx Instructions: take one tablet my mouth daily two times a day for a total of 2 tablets daily. acetaminophen 325 mg Tablet 650 mg PO Q6H PRN (Reason: Pain, Mild (Pain Scale 1-3)) 30 Days Qty: 240 0RF multivitamin Tablet 1 tab PO DAILY calcium carbonate-vitamin D2 600 mg calcium- 200 unit Tablet 1 tab PO DAILY hjmwek-yhtowgpa-lay C-E-herbal 1,250 mcg-50 mg -67.5 mg-15 mg tablet,chewable PO Interventions: ED Discharge Assessment Last Done: 02/14/25 21:03 Discharge Date/Time: 02/14/25 21:04 Print Language: Serbian
[2025-02-14 18:28] VITALS: BP 170/70; PULSE 62; RESP 16; O2SAT 97
[2025-02-14 18:28] LABS: MANUAL DIFF FLAG NO
[2025-02-14 18:46] LABS: Alanine Aminotransferase < 6 U/L (0-31); Albumin Level 4.3 g/dL (3.5-5.0); Alkaline Phosphatase 55 U/L (39-117); Anion Gap 8 (12-20); Aspartate Amino Transferase 20 U/L (5-31); Blood Urea Nitrogen 14 mg/dL (9-16); Calcium 9.4 mg/dL (8.4-10.2); Carbon Dioxide 29 mmol/L (22-29); Chloride 109 mmol/L (96-108); Creatinine Clr Calc Pharmacy 45.9; Estimated Glomerular Filt Rate > 60; Lipase 28 U/L (8-78); Magnesium 2.1 mg/dL (1.6-2.6); Potassium 4.2 mmol/L (3.3-5.1); Sodium 142 mmol/L (135-145); Total Protein 6.8 g/dL (6.5-8.0)
[2025-02-14 19:13] LABS: Hematocrit 37.1 % (37.0-47.0); Hemoglobin 11.8 g/dl (12.0-16.0); Imm Gran Abs Auto 0.02 X10*3/uL (0.00-0.03); Imm Gran Pct Auto 0.4 % (0.0-0.4); Lymphocytes Absolute Auto 1.1 X10*3/uL (1.2-4.9); Mean Corpuscular HGB Conc 31.8 g/dl (31.0-35.0); Mean Corpuscular Hemoglobin 32.5 pg (27.0-33.0); Mean Corpuscular Volume 102.2 fL (80.0-98.0); NRBC Abs Auto 0.000 X10*3/uL (0.0-0.012); NRBC Pct Auto 0.0 /100WBC (0.0-0.2); Platelet Count 300 X10*3/uL (160-400); Red Blood Count 3.63 X10*6/uL (4.20-5.50); White Blood Count 5.7 X10*3/uL (4.8-10.8)
--- OUTSIDE RECORDS SUMMARY | 2025-02-14 19:14 | XMS_ITS | Patient Health Record ---
Author Organization [facility] Address [address] [place] [address] Care Team Providers Care Restoration Ecologist Name Role Phone Reji (RETIRED) Andry NIELSON Primary Care Provide r Unavailable Randall Proctor Unavailable [phone] Reason For Referral No Information Problems Problem Type SNOMED Code ICD Code Onset Dates Problem Status W/U Status Risk Notes Problem Iron deficiency anemia (23597717) Iron deficiency anemia (D50.9) Active confirmed Problem Gastric ulcer (541576904) Gastric ulcer (K25.9) Active confirmed Plan Of Treatment No Information Insurance Providers Payer Name Payer Address Payer Phone Subscriber Number Group Number Insured Name Patient Relationship to Insured Coverage Start Date Coverage End Date [facility] [address] [place] [address] [id number] ELIZABETH ARAGON Self - patient is the insured
--- OUTSIDE RECORDS SUMMARY | 2025-02-14 19:15 | XMS_ITS | Patient Health Record ---
Author [facility] Address [address] [place] [address] Care Team Providers Care Pastry Decorator Name Role Phone Andry Mendoza MD Primary Care Provider Unavaila Jerrod Lugo Unavailable [phone] Allergies Allergen (clinical drug ingredient) Drug/Non Drug [...] W/U Status Risk Notes Problem Plantar wart (83349945) Plantar wart (B07.0) Active confirmed Plan Of Treatment Pending Test Test Name Order Date [id number] Destruction, 04-1812/27/2020 [id number] Destruction, 04-1807/11/2021 [id number] Destruction, 04-1802/03/2022 [id number] Plate 05/17/2015 Insurance Providers Payer Name Payer Address Payer Phone Subscriber Number Group Number Insured Name Patient Relationship to Insured Coverage Start Date Coverage End Date [employer] 65 Medicare Preferred [address] [place] [address] [id number] Leni Bright Self - patient is the insured Medical (General) History Medical History History ICD Code arthritis Back pain Cataracts Reflux Sinus conditions Measles Mumps Chicken pox Surgical History Surgery Date(Month/Year) tonsillectomy and adenoidectomy 1952 appendectomy 1966 dilatation and curettage 2000
--- OUTSIDE RECORDS SUMMARY | 2025-02-14 19:15 | XMS_ITS | Clinical Summary ---
Author Organization [facility] Address [address] [place] [address] Care Team Providers Care Community Center Coordinator Name Role Phone System, Provider Not In [...] Diagnosed Date PSP (progressive supranuclear palsy) 10/19/2024 Social History Tobacco Use Types Packs/Day Years [...] Mass Index - - Plan of Treatment Health Maintenance Due Date Last Done Comments Advance Care Planning 1945 Hepatitis C Virus Screening 1945 DTaP/Tdap/Td Vaccines (1 - Tdap) 1965 Pneumococcal Vaccines 50+ (1 of 2 - PCV) 1965 Zoster (Shingles) Vaccine (1 of 2) 1965 DXA Bone Density (Females,Ag es 65 and older) 2011 COVID-19 Vaccine (2 - Pfizer risk series) 07/07/2020 06/16/2020 RSV Vaccine 50 years and old er and Patients (1 - 1-dose 75+ series) 2021 Influenza Vaccine 11/03/2024 Hepatitis B Vaccines Aged Out No long er eligible based on patient's age to complete this topic Insurance [facility] Care [facility] Community Center Coordinator Relationship Specialty Start Date End Date System, Provider Not In PCP - General 09/29/24
[2025-02-14 19:21] VITALS: BP 159/68; PULSE 60; RESP 18; TEMP 36.8; O2SAT 97
--- NOTE | 2025-02-14 19:37 | PC.NURSE ---
Pt assisted to bedside commode, urine sample sent to lab
[2025-02-14 19:51] LABS: Appearance Urine Clear; Glucose Urine UA Negative (Negative); PH 7.0 (5.0-9.0); Specific Gravity - Urine 1.015 (1.005-1.025); UMIC TRIGGER UACC YES
[2025-02-14 20:19] LABS: UACC Culture Trigger YES
[2025-02-14 21:03] VITALS: BP 159/68; PULSE 60; RESP 18; TEMP 36.8; O2SAT 97
== END 2025-02-14 21:04 | disposition home or self-care (01) ==
PROVIDERS: Physician Assistant Medical; Emergency Provider Emergency Medicine; PCP Physician Assistant
DX: R19.7 Diarrhea, unspecified (principal); B96.20 Unspecified Escherichia coli [E. coli] as the cause of diseases classified elsewhere; Z88.1 Allergy status to other antibiotic agents
CPT/HCPCS: 36415; 80053; 81001; 83690; 83735; 85025; 87086; 87088; 87186; 99283; 99284

== ENCOUNTER 2025-03-06 10:22 | Outpatient (AMB) | payer MEDICARE, SELFPAY ==
[2025-03-06 10:25] VITALS: BP 146/80; PULSE 63; O2SAT 98
--- NOTE | 2025-03-06 10:25 | MHC.OFFVIS ---
Vital Signs 03/06/25 10:25 Height 5 ft 2 in BP 146/80 H Blood Pressure Location Rt brachial Position Sitting Pulse 63 Pulse Source Pulse Oximeter Pulse Oximetry (%) 98 Oxygen Delivery Method Room Air Intake Visit Reasons: 2mnth OK PER MD Intake Note: Follow up Myasthenia gravis without (acute) exacerbation, Cervicalgia, Lumbar spondylosis, chronic pain syndrome Supervisor Rubber Covering Required: No Accompanied by: Husbans and son Allergies ciprofloxacin (Cipro) Allergy (Intermediate, Verified 03/06/25 10:25) Itching Biaxin Allergy (Severe, Uncoded 02/14/25 18:00) Dizziness HPI Comments Details: 79y/o female calls for follow up of seronegative ocular myasthenia.she was seen by Neuromuscular specialist at [facility] - reviewed notes After her TRACE scan she had diarhea and was not able to keep fluids so was sent to ER - she had blood work and urine. Her bowel movements are better now - she is incontinent - bowel . she is not able to get to the bathroom in time- her stools are solid TRACE scan - slightly decreased raffi uptake . she is waiting for home health services. Her balance is poor - she has 1 fall per week. she reports droopy eyelids for 4 years now. It fluctuates and worsens in the evenings. its worse in her right eye.she also has double vision worsens when she is fatigued. she denies speech difficulty or any problems with swallowing she also has lumbar spondylosis and has gait issues related to that. she uses a walker and had some falls. she has a diagnosis of peripheral neuropathy. [facility] Medical History Parkinsonism Bradykinesia Anemia Abnormal brain MRI Meningioma of orbit Diplopia Ocular myasthenia gravis Cervicalgia Cervical spondylosis Ptosis Stress incontinence Hayfever Osteoarthritis Lumbar disc disease GERD (gastroesophageal reflux disease) Arthritis of left knee Surgical History History of colonoscopy (~01/26/23) Hx of esophagogastroduodenoscopy S/P D&C (status post dilation and curettage) History of total left knee replacement (TKR) (02/18/21) History of cataract extraction Hx of appendectomy Hx of tonsillectomy Family History Mother Pancreatic cancer Ovarian cancer Father Heart attack Pancreatic cancer Social History Household Members: Spouse Household Members Other:: 3 Housing: House Are you a primary assurance services manager health care to a significant other at home: No Do you presently have visiting nurse or other home services: No Alcohol intake: never Patient Tobacco Use Status: Former Tobacco user Tobacco use type: Cigarette e-Cigarette/Vaping Use: Never Used Second Hand Smoke Exposure: No service: No Current occupational status: retired Current occupation: rt handed Cognitive needs: Yes (Walker) Hearing needs: No Vision needs: Yes (Reading glasses) Physical Exam Vital Signs: Last Vital Signs Pulse 63 03/06/25 10:25 BP 146/80 H 03/06/25 10:25 Pulse Ox 98 03/06/25 10:25 Oxygen Delivery Method Room Air 03/06/25 10:25 Const General: cooperative; No comfortable Nutritional Appearance: overweight Orientation/consciousness: patient oriented x3 Eyes Pupils: Equal, round and reactive pupils present Neuro Other: Severe ptosis bilateral- no upgaze - better than last visit kyphosis - slow using walker cog wheel rigidity 2 UE and bradykinesia General: patient oriented x3, tone normal and moves all extremities Cranial nerves: Yes Equal, round and reactive pupils present, Yes Nystagmus not present, Yes Normal facial strength present and Yes Midline tongue present Cognition (Neuro): normal cognition Gait exam (Neuro): Antalgic gait present Motor exam (neuro): 5/5 motor strength present throughout and Normal motor muscle tone present throughout Coordination: [id number] test normal Results Reviewed Results Reviewed: [address] [address] Magnetic Resonance Report Signed Patient: Leni Bright MR#: [id number] : 1945 Acct:[id number] Age/Sex: 79 / F MR/MR cervical spine wo/w con IMPRESSION: Multilevel cervical thoracic spondylosis resulting in left neuroforamina stenosis C3-4 and central spinal canal and left neuroforamina and stenosis at C5-6. No cord compression, cord edema and or myelopathy. No abnormal enhancement within the cervical spinal cord or the prevertebral compartment. 27 mm enhancing lesion, anterior cranial fossa, cribriform plate, likely meningioma. Please refer to the MRI brain. Assessment & Plan Assessment & Plan (1) Ocular myasthenia gravis: Code(s): G70.00 - Myasthenia gravis without (acute) exacerbation Category: Medical (2) Cervicalgia: Code(s): M54.2 - Cervicalgia Category: Medical (3) Abnormal brain MRI: Comment: anterior cranial fossa lesion - extra axial Code(s): R90.89 - Other abnormal findings on diagnostic imaging of central nervous system Category: Medical (4) Lumbar spondylosis: Code(s): M47.816 - Spondylosis without myelopathy or radiculopathy, lumbar region Category: Medical (5) Chronic pain syndrome: Code(s): G89.4 - Chronic pain syndrome Category: Medical (6) Parkinsonism: Code(s): G20.C - Parkinsonism, unspecified Category: Medical Plan Anti MUSK antibody was negative Pyridostigmine 60mg 1-2-2-1 CT chest reviewed . No enlarged thymus F/u with Dr Hodges she noticed improvement with carbidopa/levodopa 25/100 1 tab bid - will increase after her bowel issues stabilize For her bowel issues - i suggested to avoid fatty food, alcohol, caffeine, increase fluids, regular bathroom breaks etc Will consider imodium TRACE scan - mild decreased uptake raffi Home PT MRI brain with kayla and orbits - reviewed- Right anterior cranial fossa meningioma is seen without invasion into the orbits or displacement of extraocular muscle. Coding Level of Care Code Est Pt Level 4 (69568) Complex visit Add On G2211 Diagnoses Ocular myasthenia gravis G70.00 Cervicalgia M54.2 Abnormal brain MRI R90.89 Lumbar spondylosis M47.816 Chronic pain syndrome G89.4 Parkinsonism G20.C
--- OUTSIDE RECORDS SUMMARY | 2025-03-06 11:51 | XMS_ITS | Clinical Summary ---
Author Organization [facility] Address [address] [place] [address] Care Team Providers Care Line Erector Name Role Phone System, Provider Not In [...] Care Team (Late st Contact Info) Description 04/25/2025 1:00 PM EST Procedure visit [facility] Neuromuscular [facility] [address] [place] [id number] Salvatore Mancini MD Cardenas Castillo, Lidia Padilla MD [address] [place] [id number] Health Maintenance Due Date Last Done Comments [...] topic Insurance [place] [id number] [facility] PPO Care Teams Line Erector Relationship Specialty Start Date End Date System, Provider Not In PCP - General 09/29/24
== END 2025-03-06 15:13 | disposition home or self-care (01) ==
LOC: HO.HSMS 10:23
PROVIDERS: PCP Internal Medicine; Visit Provider Psychiatry & Neurology Neurology
DX: G70.00 Myasthenia gravis without (acute) exacerbation (principal); M54.2 Cervicalgia; R90.89 Other abnormal findings on diagnostic imaging of central nervous system; M47.816 Spondylosis without myelopathy or radiculopathy, lumbar region; G89.4 Chronic pain syndrome; G20.C Parkinsonism, unspecified
CPT/HCPCS: 99214; G2211

== ENCOUNTER → 2025-03-06 10:22 | Outpatient (BNVA) | payer MEDICARE, SELFPAY | PROVIDERS: PCP Internal Medicine; Visit Provider Psychiatry & Neurology Neurology | DX: G70.00 Myasthenia gravis without (acute) exacerbation (principal); M54.2 Cervicalgia; R90.89 Other abnormal findings on diagnostic imaging of central nervous system; M47.816 Spondylosis without myelopathy or radiculopathy, lumbar region; G89.4 Chronic pain syndrome; G20.C Parkinsonism, unspecified; Z79.899 Other long term (current) drug therapy | CPT/HCPCS: 99212 ==